=== PATIENT | male | born 1965 | race Caucasian/White ===

== ENCOUNTER 2020-12-17 15:52 | Emergency (ER) | payer OTHER ==
[2020-12-17 15:59] VITALS: TEMP 98.1
[2020-12-17] MEDS ORDERED: SODIUM CHLORIDE 0.9% 500 ML 500 ML IV ONE (16:33)
[2020-12-17] MEDS ORDERED: LORazepam 2 MG/ML INJ IV STA (16:33)
[2020-12-17] MEDS ORDERED: hydrALAZINE HCL 20 MG/ML 1 ML VIAL IVP STA (16:34)
--- NOTE | 2020-12-17 16:36 | ED ---
General Adult HPI - General Chief complaint: Recheck/Abnormal Lab/Rx Stated complaint: High BP, Sent by pcp Time Seen by Provider: 12/17/20 16:00 Source: patient, RN notes reviewed, old records reviewed Mode of arrival: wheelchair Limitations: no limitations - History of Present Illness Initial comments: This a 55-year-old male who presents emergency Department with a past medical history significant for alcoholism. Patient states he continues to drink daily his last drink today was 9:00 this morning. Patient states he went and got a physical today so he can establish with a new primary medical care doctor and at the physical examination his blood pressure was elevated in the center the emergency department to be evaluated. Patient denies any chest pain or palpitations. Patient denies any shortness breath or difficulty breathing. Patient denies any headache patient denies numbness weakness per patient denies any blurred vision. Patient states he feels at his baseline and has no complaints at this time. Patient states he is exploring opportunities to go to rehabilitation. Patient denies any recent fever chills or cough per patient states he did get the COVID vaccine. Patient denies any abdominal pain patient denies nausea vomiting diarrhea. - Related Data Previous Rx's Medication Instructions Recorded amLODIPine [Norvasc] 5 mg PO DAILY #10 tab 12/17/20 Allergies Allergy/AdvReac Type Severity Reaction Status Date / Time No Known Allergies Allergy Verified 12/17/20 15:56 Review of Systems ROS Statement: Those systems with pertinent positive or pertinent negative responses have been documented in the HPI. ROS Other: All systems not noted in ROS Statement are negative. Past Medical History Past Medical History: Diabetes Mellitus, Hyperlipidemia, Hypertension Additional Past Medical History / Comment(s): ETOH History of Any Multi-Drug Resistant Organisms: None Reported Past Surgical History: Joint Replacement Past Psychological History: Anxiety, Depression Smoking Status: Never smoker Past Alcohol Use History: Abuse, Daily Past Drug Use History: None Reported General Exam - General Exam Comments Initial Comments: GENERAL: Patient is well-developed and well-nourished. Patient is nontoxic and well- hydrated and is in no acute distress. ENT: Neck is soft and supple. No significant lymphadenopathy is noted. Oropharynx is clear. Moist mucous membranes. Neck has full range of motion without eliciting any pain. EYES: The sclera were anicteric and conjunctiva were pink and moist. Extraocular movements were intact and pupils were equal round and reactive to light. Eyel ids were unremarkable. PULMONARY: Unlabored respirations. Good breath sounds bilaterally. No audible rales rhonchi or wheezing was noted. CARDIOVASCULAR: There is a regular rate and rhythm without any murmurs gallops or rubs. ABDOMEN: Soft and nontender with normal bowel sounds. SKIN: Skin is clear with no lesions or rashes and otherwise unremarkable. NEUROLOGIC: Patient is alert and oriented x3. Cranial nerves II through XII are grossly intact. Motor and sensory are also intact. Normal speech, volume and content. Symmetrical smile. MUSCULOSKELETAL: Normal extremities with adequate strength and full range of motion. No lower extremity swelling or edema. No calf tenderness. LYMPHATICS: No significant lymphadenopathy is noted PSYCHIATRIC: Normal psychiatric evaluation. Limitations: no limitations Course Vital Signs 12/17/20 12/17/20 12/17/20 15:56 17:16 18:03 Temperature 98.1 F Pulse Rate 89 79 94 Respiratory 16 17 18 Rate Blood Pressure 189/110 160/97 160/88 O2 Sat by Pulse 96 94 L 97 Oximetry Medical Decision Making - Medical Decision Making Patient states he ate a bunch of rice crispy treats. Patient states he is a diabetic and doesn't always take his insulin as he is supposed to. I will back into the room the patient was feeling normal without any complaints at this time. EKG shows normal sinus rhythm at 73 bpm NJ interval 272 QRS is 74 Q-T intervals 410 QTC is 451 per patient's EKG shows no ST segment elevation or depression. - Lab Data Result diagrams: 12/17/20 16:41 12/17/20 16:41 Lab Results 12/17/20 12/17/20 12/17/20 Range/Units 16:41 16:41 16:41 WBC 6.4 (3.8-10.6) k/uL RBC 5.34 (4.30-5.90) m/uL Hgb 17.4 (13.0-17.5) gm/dL Hct 51.2 (39.0-53.0) % MCV 95.9 (80.0-100.0) fL MCH 32.5 (25.0-35.0) pg MCHC 33.9 (31.0-37.0) g/dL RDW 12.9 (11.5-15.5) % Plt Count 231 (150-450) k/uL MPV 7.7 Neutrophils % 67 % Lymphocytes % 20 % Monocytes % 6 % Eosinophils % 2 % Basophils % 1 % Neutrophils # 4.3 (1.3-7.7) k/uL Lymphocytes # 1.3 (1.0-4.8) k/uL Monocytes # 0.4 (0-1.0) k/uL Eosinophils # 0.2 (0-0.7) k/uL Basophils # 0.1 (0-0.2) k/uL PT 9.9 (9.0-12.0) sec INR 0.9 (<1.2) APTT 22.1 (22.0-30.0) sec Sodium 133 L (137-145) mmol/L Potassium 4.6 (3.5-5.1) mmol/L Chloride 96 L (98-107) mmol/L Carbon Dioxide 25 (22-30) mmol/L Anion Gap 12 mmol/L BUN 6 L (9-20) mg/dL Creatinine 0.77 (0.66-1.25) mg/dL Est GFR (CKD-EPI)AfAm >90 (>60 ml/min/1.73 sqM) Est GFR (CKD-EPI)NonAf >90 (>60 ml/min/1.73 sqM) Glucose 349 H (74-99) mg/dL POC Glucose (mg/dL) (75-99) mg/dL POC Glu Chief Digital Officer ID Calcium 10.0 (8.4-10.2) mg/dL Magnesium 2.2 (1.6-2.3) mg/dL Total Bilirubin 1.0 (0.2-1.3) mg/dL AST 85 H (17-59) U/L ALT 65 H (4-49) U/L Alkaline Phosphatase 185 H (38-126) U/L Troponin I (0.000-0.034) ng/mL Total Protein 7.9 (6.3-8.2) g/dL Albumin 4.7 (3.5-5.0) g/dL Serum Alcohol 12 mg/dL 12/17/20 12/17/20 Range/Units 16:41 18:09 WBC (3.8-10.6) k/uL RBC (4.30-5.90) m/uL Hgb (13.0-17.5) gm/dL Hct (39.0-53.0) % MCV (80.0-100.0) fL MCH (25.0-35.0) pg MCHC (31.0-37.0) g/dL RDW (11.5-15.5) % Plt Count (150-450) k/uL MPV Neutrophils % % Lymphocytes % % Monocytes % % Eosinophils % % Basophils % % Neutrophils # (1.3-7.7) k/uL Lymphocytes # (1.0-4.8) k/uL Monocytes # (0-1.0) k/uL Eosinophils # (0-0.7) k/uL Basophils # (0-0.2) k/uL PT (9.0-12.0) sec INR (<1.2) APTT (22.0-30.0) sec Sodium (137-145) mmol/L Potassium (3.5-5.1) mmol/L Chloride (98-107) mmol/L Carbon Dioxide (22-30) mmol/L Anion Gap mmol/L BUN (9-20) mg/dL Creatinine (0.66-1.25) mg/dL Est GFR (CKD-EPI)AfAm (>60 ml/min/1.73 sqM) Est GFR (CKD-EPI)NonAf (>60 ml/min/1.73 sqM) Glucose (74-99) mg/dL POC Glucose (mg/dL) 261 H (75-99) mg/dL POC Glu Chief Digital Officer ID Ariella Pope Calcium (8.4-10.2) mg/dL Magnesium (1.6-2.3) mg/dL Total Bilirubin (0.2-1.3) mg/dL AST (17-59) U/L ALT (4-49) U/L Alkaline Phosphatase (38-126) U/L Troponin I <0.012 (0.000-0.034) ng/mL Total Protein (6.3-8.2) g/dL Albumin (3.5-5.0) g/dL Serum Alcohol mg/dL Disposition Clinical Impression: Alcohol abuse, Hyperglycemia, Hypertension Disposition: HOME SELF-CARE Condition: Good Instructions (If sedation given, give patient instructions): Abuse of Alcohol (ED), Hypertension (ED) Additional Instructions: Patient returns emergency department as any chest pain difficulty breathing or shortness of breath or any new symptoms. Patient needs to enter a rehabilitation center for his alcohol abuse. Patient should take Norvasc as prescribed. Patient should follow-up with his primary medical care doctor soon as possible for his high blood pressure. Prescriptions: amLODIPine [Norvasc] 5 mg PO DAILY #10 tab Is patient prescribed a controlled substance at d/c from ED?: No Referrals: Rajan Bailey MD [Primary Care Provider] - 1-2 days Time of Disposition: 18:07
[2020-12-17 17:00] LABS: Basophils # (A) 0.1 k/uL (0-0.2); Basophils % (A) 1 %; Eosinophils # (A) 0.2 k/uL (0-0.7); Eosinophils % (A) 2 %; HCT 51.2 % (39.0-53.0); HGB 17.4 gm/dL (13.0-17.5); Lymphocytes # (A) 1.3 k/uL (1.0-4.8); Lymphocytes % (A) 20 %; MCH 32.5 pg (25.0-35.0); MCHC 33.9 g/dL (31.0-37.0); MCV 95.9 fL (80.0-100.0); Mean Platelet Volume 7.7; Monocytes # (A) 0.4 k/uL (0-1.0); Monocytes % (A) 6 %; Neutrophils # (A) 4.3 k/uL (1.3-7.7); Neutrophils % (A) 67 %; Platelet Count 231 k/uL (150-450); RBC 5.34 m/uL (4.30-5.90); RDW 12.9 % (11.5-15.5); WBC 6.4 k/uL (3.8-10.6)
[2020-12-17 17:11] LABS: ALT 65 U/L (4-49); AST 85 U/L (17-59); African American GFR (CKD) >90 (>60 ml/min/1.73 sqM); Albumin 4.7 g/dL (3.5-5.0); Alcohol 12 mg/dL; Alkaline Phosphatase 185 U/L (38-126); Anion Gap 12 mmol/L; Blood Urea Nitrogen 6 mg/dL (9-20); Carbon Dioxide 25 mmol/L (22-30); Chloride 96 mmol/L (98-107); Glucose 349 mg/dL (74-99); Magnesium 2.2 mg/dL (1.6-2.3); Non-African American GFR(CKD) >90 (>60 ml/min/1.73 sqM); Potassium 4.6 mmol/L (3.5-5.1); Sodium 133 mmol/L (137-145); Total Protein 7.9 g/dL (6.3-8.2)
[2020-12-17 17:13] LABS: INR 0.9 (<1.2); Partial Thromboplastin Time 22.1 sec (22.0-30.0); Prothrombin Time 9.9 sec (9.0-12.0)
--- NOTE | 2020-12-17 17:52 | XR ---
EXAMINATION TYPE: XR chest 2V DATE OF EXAM: 12/17/2020 COMPARISON: NONE HISTORY: Chest pain TECHNIQUE: Frontal and lateral views of the chest are obtained. FINDINGS: There is no focal air space opacity, pleural effusion, or pneumothorax seen. The cardiac silhouette size is within normal limits. No acute osseous abnormality. Chronic appearing compression deformities of the lower thoracic spine seen. IMPRESSION: No acute cardiopulmonary process.
[2020-12-17 18:04] VITALS: BP 160/88; PULSE 94; RESP 18
[2020-12-17 18:10] LABS: Glucose,Whole Blood 261 mg/dL (75-99)
== END 2020-12-17 18:36 | disposition home or self-care (01) ==
LOC: EC 15:52
DX: I10 Essential (primary) hypertension (principal); E11.65 Type 2 diabetes mellitus with hyperglycemia; F10.10 Alcohol abuse, uncomplicated
CPT/HCPCS: 36415; 93005; 80053; 83735; 84484; 85025; 85610; 85730; 71046; 99283; 96374; 96375; 96361; G0480; J2060; J0360; 80320

== ENCOUNTER → 2020-12-25 | Outpatient (CLI) | payer OTHER ==
[2020-12-25 15:16] VITALS: BMI 27.1
== END | disposition home or self-care (01) ==
LOC: DBWHC3 13:05
PROVIDERS: ATTEND Internal Medicine
DX: E11.65 Type 2 diabetes mellitus with hyperglycemia (principal); E11.40 Type 2 diabetes mellitus with diabetic neuropathy, unspecified; Z83.49 Family history of other endocrine, nutritional and metabolic diseases; Z82.49 Family history of ischemic heart disease and other diseases of the circulatory system; Z83.3 Family history of diabetes mellitus; Z80.9 Family history of malignant neoplasm, unspecified; Z82.3 Family history of stroke; Z78.9 Other specified health status; F19.90 Other psychoactive substance use, unspecified, uncomplicated

== ENCOUNTER → 2021-01-08 | Outpatient (CLI) | payer OTHER ==
[2021-01-09 01:50] LABS: VLDL Calculation 16.48 mg/dL (5.00-40.00)
[2021-01-09 02:12] LABS: African American GFR (CKD) 130.1 (60.0-200.0); Albumin 4.4 g/dL (3.8-4.9); Albumin/Globulin Ratio 1.64 (1.60-3.17); Anion Gap 16.7 mmol/L (4.00-12.00); BUN/Creat Ratio 17.48 Ratio (12.00-20.00); Blood Urea Nitrogen 10.7 mg/dL (9.0-27.0); Calcium 9.8 mg/dL (8.7-10.3); Carbon Dioxide 21.6 mmol/L (21.6-31.8); Chol/HDL Ratio 1.9 Ratio; Folate, Serum 10.1 ng/mL (4.40-31.00); Globulin 2.7 g/dL (1.6-3.3); HDL Cholesterol 99.9 mg/dL (40.00-60.00); LDL Cholesterol,Calculated 73.6 mg/dL (0.0-131.0); Non-African American GFR(CKD) 112.3 (60.0-200.0); Potassium 5.6 mmol/L (3.5-5.5); Total Bilirubin 0.6 mg/dL (0.30-1.20); Total Protein 7.1 g/dL (6.2-8.2); Triglycerides 82.4 mg/dL (0.00-149.00)
== END | disposition home or self-care (01) ==
LOC: LABWHC1 10:44
PROVIDERS: ATTEND Internal Medicine
DX: Z11.59 Encounter for screening for other viral diseases (principal); Z12.5 Encounter for screening for malignant neoplasm of prostate; E11.40 Type 2 diabetes mellitus with diabetic neuropathy, unspecified; F10.20 Alcohol dependence, uncomplicated; I10 Essential (primary) hypertension
CPT/HCPCS: 86803; 80061; 80053; 82607; 82746; 83036; 36415; G0103

== ENCOUNTER → 2021-01-17 | Outpatient (CLI) | payer OTHER ==
[2021-01-17 20:45] LABS: Albumin 4.7 g/dL (3.8-4.9); Albumin/Globulin Ratio 1.7 (1.60-3.17); Anion Gap 16.2 mmol/L (4.00-12.00); BUN/Creat Ratio 9.4 Ratio (12.00-20.00); Blood Urea Nitrogen 8.7 mg/dL (9.0-27.0); Calcium 9.8 mg/dL (8.7-10.3); Carbon Dioxide 22.4 mmol/L (21.6-31.8); Globulin 2.8 g/dL (1.6-3.3); Non-African American GFR(CKD) 93.2 (60.0-200.0); Potassium 5.3 mmol/L (3.5-5.5); Total Bilirubin 0.9 mg/dL (0.30-1.20); Total Protein 7.5 g/dL (6.2-8.2)
== END | disposition home or self-care (01) ==
LOC: LABWHC1 10:44
PROVIDERS: ATTEND Internal Medicine
DX: E11.40 Type 2 diabetes mellitus with diabetic neuropathy, unspecified (principal)
CPT/HCPCS: 36415; 80053

== ENCOUNTER → 2021-05-11 | Outpatient (CLI) | payer OTHER ==
--- NOTE | 2021-05-11 16:09 | US ---
EXAMINATION TYPE: US thyroid st tissue head/neck DATE OF EXAM: 05/11/2021 COMPARISON: NONE CLINICAL HISTORY: 56-year-old male E07.9 thyromegaly, R13.10 DYSPHAGIA. TECHNIQUE: Multiple sonographic images of the thyroid gland are obtained. FINDINGS: GLAND SIZE: Right Lobe: 5.6 x 2.2 x 2.1 cm Overall Parenchyma: homogenous Left Lobe: 4.6 x 1.8 x 1.7 cm Overall Parenchyma: homogeneous Isthmus Thickness: 0.4 cm NODULES RIGHT: # of nodules measured on right: 0 LEFT: # of nodules measured on left: 0 ISTHMUS: # of nodules measured in the isthmus: 0 Bilateral neck scanned, no evidence of lymphadenopathy. IMPRESSION: The right lobe of the thyroid gland is mildly enlarged. The left lobe is borderline in size. Overall homogeneous parenchyma. No discrete nodules.
== END | disposition home or self-care (01) ==
LOC: RADUSWWP 14:05
PROVIDERS: ATTEND Family Medicine
DX: E04.9 Nontoxic goiter, unspecified (principal)
CPT/HCPCS: 76536

== ENCOUNTER 2021-08-10 15:57 | Observation (INO) | payer OTHER ==
[2021-08-10] MEDS ORDERED: NITROGLYCERIN OINT 1 INCH/GM PACKET TOPICAL STA (16:23)
[2021-08-10] MEDS ORDERED: LORazepam 2 MG/ML INJ IV STA (16:24)
[2021-08-10 16:27] LABS: Glucose,Whole Blood 399 mg/dL (75-99)
--- NOTE | 2021-08-10 16:35 | ED ---
General Adult HPI - General Chief complaint: Dizziness Stated complaint: Chest pain Time Seen by Provider: 08/10/21 16:05 Source: patient, EMS, RN notes reviewed, old records reviewed Mode of arrival: EMS - History of Present Illness Initial comments: This is a 56-year-old male who presents emergency Department complaining of chest discomfort starting at about 11:00 today. Patient states she he also was lightheaded and a little bit dizzy. Patient also complains that her sugar was elevated at about 500. Patient states he's been taking his insulin regularly. Patient denies any fever chills or cough per patient denies any palpitations. Patient denies headache patient denies lightheadedness or dizziness. Patient denies abdominal pain patient denies nausea vomiting diarrhea. Patient denies any swelling to the legs or calf tenderness. Patient states he also has a hi story of anxiety feels a little anxious today. Patient states the chest discomfort was better after the bicycle repairer gave him some nitroglycerin. - Related Data Home Medications Medication Instructions Recorded Confirmed Atorvastatin Calcium [Lipitor] 10 mg PO DAILY 08/10/21 08/10/21 Folic Acid 1 mg PO DAILY 08/10/21 08/10/21 Insulin Glargine,Hum.rec.anlog 40 unit SQ HS 08/10/21 08/10/21 [Lantus Solostar Pen] Naltrexone HCl [Revia] 50 mg PO DAILY 08/10/21 08/10/21 Thiamine [Vitamin B-1] 100 mg PO DAILY 08/10/21 08/10/21 amLODIPine [Norvasc] 10 mg PO HS 08/10/21 08/10/21 lisinopriL [Zestril] 20 mg PO DAILY 08/10/21 08/10/21 Allergies Allergy/AdvReac Type Severity Reaction Status Date / Time No Known Allergies Allergy Verified 08/10/21 17:47 Review of Systems ROS Statement: Those systems with pertinent positive or pertinent negative responses have been documented in the HPI. ROS Other: All systems not noted in ROS Statement are negative. Past Medical History Past Medical History: Diabetes Mellitus, Hyperlipidemia, Hypertension Additional Past Medical History / Comment(s): ETOH History of Any Multi-Drug Resistant Organisms: None Reported Past Surgical History: Joint Replacement Past Psychological History: Anxiety, Depression Smoking Status: Never smoker Past Alcohol Use History: Abuse, Daily Past Drug Use History: Marijuana General Exam - General Exam Comments Initial Comments: GENERAL: Patient is well-developed and well-nourished. Patient is nontoxic and well- hydrated and is in mild distress. ENT: Neck is soft and supple. No significant lymphadenopathy is noted. Oropharynx is clear. Moist mucous membranes. Neck has full range of motion without eliciting any pain. EYES: The sclera were anicteric and conjunctiva were pink and moist. Extraocular movements were intact and pupils were equal round and reactive to light. Eyelids were unremarkable. PULMONARY: Unlabored respirations. Good breath sounds bilaterally. No audible rales rhonchi or wheezing was noted. CARDIOVASCULAR: There is a regular rate and rhythm without any murmurs gallops or rubs. ABDOMEN: Soft and nontender with normal bowel sounds. SKIN: Skin is clear with no lesions or rashes and otherwise unremarkable. NEUROLOGIC: Patient is alert and oriented x3. Cranial nerves II through XII are grossly intact. Motor and sensory are also intact. Normal speech, volume and content. Symmetrical smile. MUSCULOSKELETAL: Normal extremities with adequate strength and full range of motion. No lower extremity swelling or edema. No calf tenderness. LYMPHATICS: No significant lymphadenopathy is noted PSYCHIATRIC: Patient is mildly anxious Course Vital Signs 08/10/21 08/10/21 16:02 18:07 Temperature 97.8 F Pulse Rate 100 84 Respiratory 18 18 Rate Blood Pressure 157/93 115/76 O2 Sat by Pulse 97 96 Oximetry Medical Decision Making - Medical Decision Making EKG shows sinus rhythm at 96 bpm [place] interval 174 QRS is a 70 Q-T intervals 367 QTC is 421 per patient's EKG shows no ST segment elevation or depression. Patient was given a liter bolus of normal saline. Patient was also started on insulin drip for the DKA. I spoke with [facility] agreed to admit the patient admitted the patient. Dr. Nevarez he wanted the patient admitted he did not at this time wanted cardiology consult - Lab Data Result diagrams: 08/10/21 16:28 08/10/21 16:28 Lab Results 08/10/21 08/10/21 08/10/21 Range/Units 16:26 16:28 16:28 WBC 16.7 H (3.8-10.6) k/uL RBC 4.85 (4.30-5.90) m/uL Hgb 15.0 (13.0-17.5) gm/dL Hct 46.3 (39.0-53.0) % MCV 95.4 (80.0-100.0) fL MCH 30.9 (25.0-35.0) pg MCHC 32.4 (31.0-37.0) g/dL RDW 12.7 (11.5-15.5) % Plt Count 251 (150-450) k/uL MPV 8.4 Neutrophils % 92 % Lymphocytes % 4 % Monocytes % 4 % Eosinophils % 0 % Basophils % 0 % Neutrophils # 15.3 H (1.3-7.7) k/uL Lymphocytes # 0.6 L (1.0-4.8) k/uL Monocytes # 0.6 (0-1.0) k/uL Eosinophils # 0.0 (0-0.7) k/uL Basophils # 0.1 (0-0.2) k/uL PT 10.3 (9.0-12.0) sec INR 0.9 (<1.2) APTT 20.2 L (22.0-30.0) sec Sodium (137-145) mmol/L Potassium (3.5-5.1) mmol/L Chloride (98-107) mmol/L Carbon Dioxide (22-30) mmol/L Anion Gap mmol/L BUN (9-20) mg/dL Creatinine (0.66-1.25) mg/dL Est GFR (CKD-EPI)AfAm (>60 ml/min/1.73 sqM) Est GFR (CKD-EPI)NonAf (>60 ml/min/1.73 sqM) Glucose (74-99) mg/dL POC Glucose (mg/dL) 399 H (75-99) mg/dL POC Glu Box Toe Cementer ID September, Calcium (8.4-10.2) mg/dL Magnesium (1.6-2.3) mg/dL Total Bilirubin (0.2-1.3) mg/dL AST (17-59) U/L ALT (4-49) U/L Alkaline Phosphatase (38-126) U/L Troponin I (0.000-0.034) ng/mL Total Protein (6.3-8.2) g/dL Albumin (3.5-5.0) g/dL Acetone, Qual (Negative) 08/10/21 08/10/21 08/10/21 Range/Units 16:28 16:28 18:18 WBC (3.8-10.6) k/uL RBC (4.30-5.90) m/uL Hgb (13.0-17.5) gm/dL Hct (39.0-53.0) % MCV (80.0-100.0) fL MCH (25.0-35.0) pg MCHC (31.0-37.0) g/dL RDW (11.5-15.5) % Plt Count (150-450) k/uL MPV Neutrophils % % Lymphocytes % % Monocytes % % Eosinophils % % Basophils % % Neutrophils # (1.3-7.7) k/uL Lymphocytes # (1.0-4.8) k/uL Monocytes # (0-1.0) k/uL Eosinophils # (0-0.7) k/uL Basophils # (0-0.2) k/uL PT (9.0-12.0) sec INR (<1.2) APTT (22.0-30.0) sec Sodium 133 L (137-145) mmol/L Potassium 5.8 H (3.5-5.1) mmol/L Chloride 99 (98-107) mmol/L Carbon Dioxide 21 L (22-30) mmol/L Anion Gap 13 mmol/L BUN 12 (9-20) mg/dL Creatinine 0.77 (0.66-1.25) mg/dL Est GFR (CKD-EPI)AfAm >90 (>60 ml/min/1.73 sqM) Est GFR (CKD-EPI)NonAf >90 (>60 ml/min/1.73 sqM) Glucose 434 H (74-99) mg/dL POC Glucose (mg/dL) (75-99) mg/dL POC Glu Box Toe Cementer ID Calcium 9.0 (8.4-10.2) mg/dL Magnesium 1.9 (1.6-2.3) mg/dL Total Bilirubin 1.3 (0.2-1.3) mg/dL AST 34 (17-59) U/L ALT 24 (4-49) U/L Alkaline Phosphatase 98 (38-126) U/L Troponin I <0.012 (0.000-0.034) ng/mL Total Protein 7.0 (6.3-8.2) g/dL Albumin 4.3 (3.5-5.0) g/dL Acetone, Qual Positive (Negative) Critical Care Time Critical Care Time: Yes Total Critical Care Time: 35 Disposition Clinical Impression: Diabetic ketoacidosis, Chest pain, Vomiting Disposition: ADMITTED IP TO THIS [facility] Referrals: None,Stated [Primary Care Provider] - 1-2 days Time of Disposition: 18:56
[2021-08-10 16:49] LABS: Basophils # (A) 0.1 k/uL (0-0.2); Basophils % (A) 0 %; Eosinophils % (A) 0 %; HCT 46.3 % (39.0-53.0); Lymphocytes # (A) 0.6 k/uL (1.0-4.8); Lymphocytes % (A) 4 %; MCH 30.9 pg (25.0-35.0); MCHC 32.4 g/dL (31.0-37.0); MCV 95.4 fL (80.0-100.0); Mean Platelet Volume 8.4; Monocytes # (A) 0.6 k/uL (0-1.0); Monocytes % (A) 4 %; Neutrophils # (A) 15.3 k/uL (1.3-7.7); Neutrophils % (A) 92 %; Platelet Count 251 k/uL (150-450); RBC 4.85 m/uL (4.30-5.90); RDW 12.7 % (11.5-15.5); WBC 16.7 k/uL (3.8-10.6)
[2021-08-10 17:02] LABS: ALT 24 U/L (4-49); African American GFR (CKD) >90 (>60 ml/min/1.73 sqM); Albumin 4.3 g/dL (3.5-5.0); Anion Gap 13 mmol/L; Blood Urea Nitrogen 12 mg/dL (9-20); Carbon Dioxide 21 mmol/L (22-30); Chloride 99 mmol/L (98-107); Glucose 434 mg/dL (74-99); Non-African American GFR(CKD) >90 (>60 ml/min/1.73 sqM); Sodium 133 mmol/L (137-145); Total Bilirubin 1.3 mg/dL (0.2-1.3)
[2021-08-10 17:13] LABS: INR 0.9 (<1.2); Prothrombin Time 10.3 sec (9.0-12.0)
--- NOTE | 2021-08-10 17:26 | XR ---
EXAMINATION TYPE: XR chest 2V DATE OF EXAM: 08/10/2021 4:51 PM COMPARISON: Chest radiographs from 921 TECHNIQUE: XR chest 2V Frontal and lateral views of the chest. CLINICAL INDICATION:Male, 56 years old with history of Chest Pain; FINDINGS: Lungs/Pleura: There is flattening of the diaphragm with increased lucency of the lungs. No evidence o f pneumothorax, pleural effusion or focal consolidation. Pulmonary vascularity: Unremarkable. Heart/mediastinum: Cardiomediastinal silhouette is unremarkable. Musculoskeletal: No acute osseous pathology. IMPRESSION: 1. No acute cardiopulmonary disease process. 2. COPD changes.
[2021-08-10 17:29] LABS: Partial Thromboplastin Time 20.2 sec (22.0-30.0)
[2021-08-10 17:38] LABS: AST 34 U/L (17-59); Alkaline Phosphatase 98 U/L (38-126); Magnesium 1.9 mg/dL (1.6-2.3); Potassium 5.8 mmol/L (3.5-5.1)
[2021-08-10] MEDS ORDERED: SODIUM CHLORIDE 0.9% 1,000 ML IV ONE (18:54)
[2021-08-10] MEDS ORDERED: INSULIN REGULAR 100 UNIT in SODIUM CHLORIDE 0.9% 100 ML IV SCH (19:00)
[2021-08-10] MEDS ORDERED: LORazepam 2 MG/ML INJ IV PRN ×3 (19:07)
[2021-08-10] MEDS ORDERED: THIAMINE 100 MG/ML 2 ML VIAL IM STA (19:07)
[2021-08-10] MEDS: SODIUM CHLORIDE 0.9% 1,000 ML IV SCH (20:07)
[2021-08-10 20:08] LABS: Glucose,Whole Blood 293 mg/dL (75-99)
[2021-08-10 20:32] LABS: African American GFR (CKD) >90 (>60 ml/min/1.73 sqM); Anion Gap 10 mmol/L; Blood Urea Nitrogen 12 mg/dL (9-20); Carbon Dioxide 24 mmol/L (22-30); Chloride 101 mmol/L (98-107); Glucose 306 mg/dL (74-99); Non-African American GFR(CKD) >90 (>60 ml/min/1.73 sqM); Potassium 4.7 mmol/L (3.5-5.1); Sodium 135 mmol/L (137-145)
[2021-08-10 21:02] LABS: Glucose,Whole Blood 219 mg/dL (75-99)
[2021-08-10 22:16] LABS: Glucose,Whole Blood 111 mg/dL (75-99)
[2021-08-10 23:05] LABS: Glucose,Whole Blood 94 mg/dL (75-99)
[2021-08-10 23:48] LABS: Glucose,Whole Blood 91 mg/dL (75-99)
[2021-08-11 00:03] LABS: Glucose,Whole Blood 91 mg/dL (75-99)
[2021-08-11 00:29] LABS: African American GFR (CKD) >90 (>60 ml/min/1.73 sqM); Anion Gap 8 mmol/L; Blood Urea Nitrogen 12 mg/dL (9-20); Carbon Dioxide 25 mmol/L (22-30); Chloride 103 mmol/L (98-107); Glucose 87 mg/dL (74-99); Non-African American GFR(CKD) >90 (>60 ml/min/1.73 sqM); Potassium 4.2 mmol/L (3.5-5.1); Sodium 136 mmol/L (137-145)
[2021-08-11 00:32] LABS: Glucose,Whole Blood 92 mg/dL (75-99)
[2021-08-11] MEDS ORDERED: DEXTROSE 5%-0.45% NACL 1,000 ML with POTASSIUM CHLORIDE 20 MEQ IV SCH ×2 (00:45)
[2021-08-11] MEDS ORDERED: INSULIN NPH 300 UNIT/3 ML VIAL SQ ONE (00:52)
[2021-08-11 01:03] LABS: Glucose,Whole Blood 94 mg/dL (75-99)
[2021-08-11] MEDS: SODIUM CHLORIDE 0.9% 1,000 ML IV SCH (01:05)
[2021-08-11 01:38] LABS: Glucose,Whole Blood 120 mg/dL (75-99)
[2021-08-11 06:10] LABS: Glucose,Whole Blood 120 mg/dL (75-99)
[2021-08-11 07:29] LABS: Glucose,Whole Blood 68 mg/dL (75-99)
[2021-08-11] MEDS: INSULIN ASPART (NovoLOG) 100 UNIT/ML VIAL SQ SCH ×4 (07:29→12:51)
[2021-08-11] MEDS ORDERED: THIAMINE 100 MG TAB PO SCH (07:30)
[2021-08-11 07:58] LABS: Glucose,Whole Blood 88 mg/dL (75-99)
[2021-08-11] MEDS ORDERED: FOLIC ACID 1 MG TAB PO SCH (09:00)
[2021-08-11] MEDS ORDERED: ATORVASTATIN 10 MG TAB PO SCH (09:00)
[2021-08-11] MEDS ORDERED: lisinopriL 20 MG TAB PO SCH (09:00)
[2021-08-11 10:23] LABS: African American GFR (CKD) >90 (>60 ml/min/1.73 sqM); Anion Gap 5 mmol/L; Blood Urea Nitrogen 11 mg/dL (9-20); Carbon Dioxide 26 mmol/L (22-30); Chloride 103 mmol/L (98-107); Non-African American GFR(CKD) >90 (>60 ml/min/1.73 sqM); Phosphorus 3.5 mg/dL (2.5-4.5); Potassium 3.7 mmol/L (3.5-5.1); Sodium 134 mmol/L (137-145)
[2021-08-11 10:38] VITALS: TEMP 98.3
[2021-08-11 11:47] LABS: Glucose,Whole Blood 121 mg/dL (75-99)
[2021-08-11 11:48] VITALS: BP 146/85; PULSE 97; RESP 18
[2021-08-11 12:11] VITALS: BMI 24.7
--- NOTE | 2021-08-11 12:56 | P.DS ---
Providers Date of admission: 08/10/21 19:00 Attending physician: Jaun Nevarez Primary care physician: Stated None Hospital Course: Refer to my history of present illness for further details Plan - Discharge Summary Discharge Rx Participant: No New Discharge Prescriptions: New Insulin Aspart [Insulin Aspart Flexpen] 6 unit SQ AC-TID #5 pen Insulin Glargine,Hum.rec.anlog [Lantus Solostar Pen] 30 unit SQ DAILY #5 pen Continue Naltrexone HCl [Revia] 50 mg PO DAILY Thiamine [Vitamin B-1] 100 mg PO DAILY lisinopriL [Zestril] 20 mg PO DAILY Folic Acid 1 mg PO DAILY Atorvastatin Calcium [Lipitor] 10 mg PO DAILY Changed amLODIPine [Norvasc] 5 mg PO HS #0 Discontinued Insulin Glargine,Hum.rec.anlog [Lantus Solostar Pen] 40 unit SQ HS Discharge Medication List Atorvastatin Calcium [Lipitor] 10 mg PO DAILY 08/10/21 [History] Folic Acid 1 mg PO DAILY 08/10/21 [History] Naltrexone HCl [Revia] 50 mg PO DAILY 08/10/21 [History] Thiamine [Vitamin B-1] 100 mg PO DAILY 08/10/21 [History] lisinopriL [Zestril] 20 mg PO DAILY 08/10/21 [History] Insulin Aspart [Insulin Aspart Flexpen] 6 unit SQ AC-TID #5 pen 08/11/21 [Rx] Insulin Glargine,Hum.rec.anlog [Lantus Solostar Pen] 30 unit SQ DAILY #5 pen 08/11/21 [Rx] amLODIPine [Norvasc] 5 mg PO HS #0 08/11/21 [Rx] Follow up Appointment(s)/Referral(s): Ha Barlow MD [STAFF PHYSICIAN] - 1 Week Kal Wolf MD [STAFF PHYSICIAN] - 1 Week Abdirashid Arguelles MD [REFERRING] - 1 Week Patient Instructions/Handouts: Diabetic Ketoacidosis (DC), Basic Carbohydrate Counting (DC) Activity/Diet/Wound Care/Special Instructions: Will need a script for Nalterxone please Discharge Disposition: HOME SELF-CARE
--- NOTE | 2021-08-11 12:56 | P.HPIM ---
History of Present Illness 56-year-old pleasant male came in with the complaints of further dizziness lightheadedness found to have low blood pressure. Patient is also found to have highly elevated blood pressures and mild anion gap metabolic acidosis because of which patient was believed to have a ketoacidosis although my suspicion is low for that and patient was subsequently admitted for that admission was given IV insulin which was transitioned to subcutaneous insulin last night and patient usually takes 40 units of Lantus at night. Patient blood sugars as per the patient and highly fluctuating in the mornings are low and by evening they're high although patient does drink about 5 beers a day. Patient usually drinks his be starting in the afternoon. doesn't take any pre-meal insulin. Patient is in between doctors doesn't have a primary care physician at this time patient denied any fever chills patient had leukocytosis yesterday. Patient lightheadedness resolve the patient does take amlodipine and lisinopril at home. Apparently patient was comparing of chest discomfort. Patient he denied any such complaints to me, patient's EKG is within normal limits and troponins are negative. Patient has a significant anxiety and patient is quite a bit depressed denied any suicidal ideations. REVIEW OF SYSTEMS: CONSTITUTIONAL: No fever, no malaise, no fatigue. HEENT: No recent visual problems or hearing problems. Denied any sore throat. CARDIOVASCULAR: No chest pain, orthopnea, PND, no palpitations, no syncope. PULMONARY: No shortness of breath, no cough, no hemoptysis. GASTROINTESTINAL: No diarrhea, no nausea, no vomiting, no abdominal pain. NEUROLOGICAL: No headaches, no weakness, no numbness. HEMATOLOGICAL: Denies any bleeding or petechiae. GENITOURINARY: Denies any burning micturition, frequency, or urgency. MUSCULOSKELETAL/RHEUMATOLOGICAL: Denies any joint pain, swelling, or any muscle pain. ENDOCRINE: Denies any polyuria or polydipsia. The rest of the 14-point review of systems is negative. PHYSICAL EXAMINATION: GENERAL: The patient is alert and oriented x3, not in any acute distress. Well developed, well nourished. HEENT: Pupils are round and equally reacting to light. EOMI. No scleral icterus. No conjunctival pallor. Normocephalic, atraumatic. No pharyngeal erythema. No thyromegaly. CARDIOVASCULAR: S1 and S2 present. No murmurs, rubs, or gallops. PULMONARY: Chest is clear to auscultation, no wheezing or crackles. ABDOMEN: Soft, nontender, nondistended, normoactive bowel sounds. No palpable organomegaly. MUSCULOSKELETAL: No joint swelling or deformity. EXTREMITIES: No cyanosis, clubbing, or pedal edema. NEUROLOGICAL: Gross neurological examination did not reveal any focal deficits. SKIN: No rashes. Assessment and plan - lightheadedness: Most probably secondary to low blood pressure there may be a competent of dehydration as well. Patient was hydrated overnight, we'll cut down the dose of amlodipine to 5 mg continue with the lisinopril. Elevated blood sugars low possibility of diabetic ketoacidosis. Patient was started on pre-meal insulin for better control of blood sugars and patient can take higher doses of short-acting insulin in the afternoon and evening did his elevated blood sugars in the afternoon and evening is secondary to beer. Patient has cut down significantly. His long-acting insulin will be cut down to 30 units I do not have any hemoglobin A1c available at this time -Hypertension: Management as mentioned for -Hyperlipidemia -Leukocytosis reactive -Depression patient follows with [facility] patient is not suicidal at this time Patient will be discharged today in stable medical condition to home with follow-up with PCP, endocrinology and cardiology as an outpatient Past Medical History Past Medical History: Diabetes Mellitus, Hyperlipidemia, Hypertension Additional Past Medical History / Comment(s): ETOH History of Any Multi-Drug Resistant Organisms: None Reported Past Surgical History: Adenoidectomy, Tonsillectomy Additional Past Surgical History / Comment(s): L ankle surgery Past Anesthesia/Blood Transfusion Reactions: No Reported Reaction Past Psychological History: Anxiety, Depression Smoking Status: Never smoker Past Alcohol Use History: Abuse, Daily Past Drug Use History: Marijuana Medications and Allergies Home Medications Medication Instructions Recorded Confirmed Type Atorvastatin Calcium [Lipitor] 10 mg PO DAILY 08/10/21 08/10/21 History Folic Acid 1 mg PO DAILY 08/10/21 08/10/21 History Naltrexone HCl [Revia] 50 mg PO DAILY 08/10/21 08/10/21 History Thiamine [Vitamin B-1] 100 mg PO DAILY 08/10/21 08/10/21 History lisinopriL [Zestril] 20 mg PO DAILY 08/10/21 08/10/21 History Insulin Aspart [Insulin Aspart 6 unit SQ AC-TID #5 pen 08/11/21 Rx Flexpen] Insulin Glargine,Hum.rec.anlog 30 unit SQ DAILY #5 pen 08/11/21 Rx [Lantus Solostar Pen] amLODIPine [Norvasc] 5 mg PO HS #0 08/11/21 08/10/21 Rx Allergies Allergy/AdvReac Type Severity Reaction Status Date / Time No Known Allergies Allergy Verified 08/10/21 17:47 Physical Exam Vitals: Vital Signs Temp Pulse Pulse Resp BP BP Pulse Ox 08/11/21 11:47 98.3 F 97 18 146/85 99 08/11/21 10:36 98.3 F 66 16 121/68 99 08/11/21 04:00 97.9 F 66 16 100/54 98 08/11/21 00:00 98.0 F 77 16 142/78 97 08/10/21 20:09 91 16 144/92 96 08/10/21 20:00 98.1 F 98 16 138/77 96 08/10/21 18:07 84 18 115/76 96 08/10/21 16:02 97.8 F 100 18 157/93 97 Intake and Output 08/10/21 08/11/21 08/11/21 22:59 06:59 14:59 Intake Total 31.670 4 260 Balance 31.670 4 260 Intake: IV 10 10 Invasive Line 1 10 10 Intake, IV Titration 21.670 4 Amount Insulin Regular 100 unit 21.670 4 In Sodium Chloride 0.9% 100 ml @ 0.1 UNITS/KG/HR 10.079 mls/hr IV .Q10H2M [facility] Rx#:[id number] Oral 250 Other: Voiding Method Toilet Toilet Toilet # Voids 1 1 3 # Bowel Movements 1 Weight 99.79 kg 99.79 kg Results CBC & Chem 7: 08/10/21 16:28 08/11/21 09:49 Labs: Abnormal Lab Results - Last 24 Hours (Table) 08/10/21 08/10/21 08/10/21 Range/Units 16:26 16:28 16:28 WBC 16.7 H (3.8-10.6) k/uL Neutrophils # 15.3 H (1.3-7.7) k/uL Lymphocytes # 0.6 L (1.0-4.8) k/uL APTT 20.2 L (22.0-30.0) sec Sodium (137-145) mmol/L Potassium (3.5-5.1) mmol/L Carbon Dioxide (22-30) mmol/L Creatinine (0.66-1.25) mg/dL Glucose (74-99) mg/dL POC Glucose (mg/dL) 399 H (75-99) mg/dL 08/10/21 08/10/21 08/10/21 Range/Units 16:28 20:00 20:05 WBC (3.8-10.6) k/uL Neutrophils # (1.3-7.7) k/uL Lymphocytes # (1.0-4.8) k/uL APTT (22.0-30.0) sec Sodium 133 L 135 L (137-145) mmol/L Potassium 5.8 H (3.5-5.1) mmol/L Carbon Dioxide 21 L (22-30) mmol/L Creatinine (0.66-1.25) mg/dL Glucose 434 H 306 H (74-99) mg/dL POC Glucose (mg/dL) 293 H (75-99) mg/dL 08/10/21 08/10/21 08/10/21 Range/Units 21:00 22:15 23:52 WBC (3.8-10.6) k/uL Neutrophils # (1.3-7.7) k/uL Lymphocytes # (1.0-4.8) k/uL APTT (22.0-30.0) sec Sodium 136 L (137-145) mmol/L Potassium (3.5-5.1) mmol/L Carbon Dioxide (22-30) mmol/L Creatinine 0.65 L (0.66-1.25) mg/dL Glucose (74-99) mg/dL POC Glucose (mg/dL) 219 H 111 H (75-99) mg/dL 08/11/21 08/11/21 08/11/21 Range/Units 01:35 06:08 07:28 WBC (3.8-10.6) k/uL Neutrophils # (1.3-7.7) k/uL Lymphocytes # (1.0-4.8) k/uL APTT (22.0-30.0) sec Sodium (137-145) mmol/L Potassium (3.5-5.1) mmol/L Carbon Dioxide (22-30) mmol/L Creatinine (0.66-1.25) mg/dL Glucose (74-99) mg/dL POC Glucose (mg/dL) 120 H 120 H 68 L (75-99) mg/dL 08/11/21 08/11/21 Range/Units 09:49 11:45 WBC (3.8-10.6) k/uL Neutrophils # (1.3-7.7) k/uL Lymphocytes # (1.0-4.8) k/uL APTT (22.0-30.0) sec Sodium 134 L (137-145) mmol/L Potassium (3.5-5.1) mmol/L Carbon Dioxide (22-30) mmol/L Creatinine (0.66-1.25) mg/dL Glucose (74-99) mg/dL POC Glucose (mg/dL) 121 H (75-99) mg/dL Thrombosis Risk Factor Assmnt - Choose All That Apply Any of the Below Risk Factors Present?: Yes Each Factor Represents 1 point: Age 41-60 years Other Risk Factors: No Other congenital or acquired thrombophilia - If yes, enter type in comment: No Thrombosis Risk Factor Assessment Total Risk Factor Score: 1 Thrombosis Risk Factor Assessment Level: Low Risk
[2021-08-11] MEDS ORDERED: amLODIPine 10 MG TAB PO SCH (21:00)
[2021-08-11] MEDS ORDERED: INSULIN DETEMIR (LEVEMIR) 100 UNIT/ML SYR SQ SCH (21:00)
[2021-08-12] MEDS ORDERED: lisinopriL 10 MG TAB PO SCH (09:00)
== END 2021-08-11 13:05 | disposition home or self-care (01) ==
LOC: EC 15:57 → INTOOBSV 19:00 → 3SCARD 19:00 → UNDODISIN 08-11 13:05
PROVIDERS: ADMIT Internal Medicine; ATTEND Internal Medicine
DX: E11.10 Type 2 diabetes mellitus with ketoacidosis without coma (principal); D72.829 Elevated white blood cell count, unspecified; I10 Essential (primary) hypertension; E86.0 Dehydration; R03.1 Nonspecific low blood-pressure reading; E78.5 Hyperlipidemia, unspecified; F32.A Depression, unspecified; F41.9 Anxiety disorder, unspecified; Z79.4 Long term (current) use of insulin; Z79.899 Other long term (current) drug therapy
CPT/HCPCS: 99291; 96376; 96365; 96366; 96372; 96375; 36415; 93005; 80051 ×2; 80053; 82565 ×2; 82009; 83735; 84100 ×2; 82947; 84520 ×2; 84484; 85025; 85610; 85730; 71046; G0378 ×2; J2060; J3411; J3480; 96361

== ENCOUNTER → 2021-10-09 | Outpatient (CLI) | payer OTHER ==
--- NOTE | 2021-10-09 13:52 | XR ---
EXAMINATION TYPE: XR finger or thumb bilateral DATE OF EXAM: 10/09/2021 COMPARISON: None HISTORY: Bilateral thumb pain TECHNIQUE: Bilateral thumbs are examined in 3 projections each. FINDINGS: Spaces and mild narrowing at the right metacarpal phalangeal joint space. No acute fracture s or dislocations are evident. Soft tissues are normal. Follow-up exams can be performed 7-10 days. IMPRESSION: 1. Mild degenerative joint change first metacarpal phalangeal joint space right hand.
--- NOTE | 2021-10-09 16:20 | XR ---
EXAMINATION TYPE: XR lumbosacral spine min 4V DATE OF EXAM: 10/09/2021 COMPARISON: None HISTORY: Low back pain TECHNIQUE: 5 view lumbar spine FINDINGS: There are 5 lumbar-type vertebral bodies. The pedicles are intact. Mild diffuse facet pena es or to the lumbar spine, greatest at L4-5 and L5-S1. Some posterior disc space narrowing is present L3-4 through L5-S1. Remaining disc heights are preserved. Vertebral body heights are preserved. Alig nment is normal. IMPRESSION: 1. Mild posterior disc space narrowing lower lumbar spine. MRI can be performed as clinically indica talia. 2. No acute osseous abnormality radiographically apparent.
--- NOTE | 2021-10-09 16:22 | XR ---
EXAMINATION TYPE: XR thoracic spine complete DATE OF EXAM: 10/09/2021 COMPARISON: CT abdomen and pelvis 08/27/2021 HISTORY: Pain TECHNIQUE: 3 view thoracic spine FINDINGS: In the region of T9 and there appears to be a compression deformity. This wedge may be appr oximately 30% anterior vertebral body height loss. Milder compression at the region of T8 may be pres ent as well. No posterior wall displacement is evident. IMPRESSION: 1. Old compression deformity T9 and T8.
== END | disposition home or self-care (01) ==
LOC: RADXRMAIN 13:14
PROVIDERS: ATTEND Nurse Practitioner
DX: M79.641 Pain in right hand (principal); M79.642 Pain in left hand; M54.50 Low back pain, unspecified
CPT/HCPCS: 72072; 72110

== ENCOUNTER 2021-11-23 08:13 | Day surgery (SDC) | payer OTHER ==
[2021-11-19 11:36] VITALS: BMI 23.8
--- NOTE | 2021-11-23 07:36 | P.GSHP ---
History of Present Illness H&P Date: 11/23/21 CHIEF COMPLAINT: Colon screen HISTORY OF PRESENT ILLNESS: The patient is a 56-year-old male who presents for colon screen. Lower endoscopy was offered for further evaluation and management. PAST MEDICAL HISTORY: Please see list. PAST SURGICAL HISTORY: Please see list. MEDICATIONS: Please see list. ALLERGIES: Please see list. SOCIAL HISTORY: No illicit drug use FAMILY HISTORY: No reports of Crohn disease or ulcerative colitis. REVIEW OF ORGAN SYSTEMS: CONSTITUTIONAL: No reports of fevers or chills. PHYSICAL EXAM: VITAL SIGNS: Stable GENERAL: Well-developed pleasant in no acute distress. HEENT: No scleral icterus. Extraocular movements grossly intact. Moist buccal mucosa. NECK: Supple without lymphadenopathy. CHEST: Unlabored respirations. Equal bilateral excursions. CARDIOVASCULAR: Regular rate and rhythm. Distal 2+ pulses. ABDOMEN: Soft, nontender, nondistended. MUSCULOSKELETAL: No clubbing, cyanosis, or edema. ASSESSMENT: 1. Colon screen. PLAN: 1. Recommend proceeding with a lower endoscopy Past Medical History Past Medical History: Diabetes Mellitus, Hyperlipidemia, Hypertension Additional Past Medical History / Comment(s): Alchoholic. Hx Acid reflux, resolved 10 yrs ago. History of Any Multi-Drug Resistant Organisms: None Reported Past Surgical History: Adenoidectomy, Cholecystectomy, Orthopedic Surgery, Tonsillectomy Additional Past Surgical History / Comment(s): Left ankle surgery. Past Anesthesia/Blood Transfusion Reactions: No Reported Reaction Past Psychological History: Anxiety, Depression Smoking Status: Never smoker Past Alcohol Use History: Abuse, Daily Additional Past Alcohol Use History / Comment(s): Use to drink 24 beers a day, over the last year has cut down to less than 6 per day. Past Drug Use History: Marijuana Additional Drug Use History / Comment(s): Occasional Marijuana use. Aware no alcohol or Marijuana use 24 hrs prior to procedure. - Past Family History Mother Family Medical History: Cancer Father Family Medical History: Cancer, CVA/TIA Additional Family Medical History / Comment(s): CVA X2, . Medications and Allergies Home Medications Medication Instructions Recorded Confirmed Type Atorvastatin Calcium [Lipitor] 10 mg PO HS 08/10/21 11/19/21 History Naltrexone HCl [Revia] 50 mg PO HS 08/10/21 11/19/21 History lisinopriL [Zestril] 20 mg PO HS 08/10/21 11/19/21 History amLODIPine [Norvasc] 5 mg PO HS 30 Days #30 tab 08/31/21 11/19/21 Rx Insulin Aspart [Insulin Aspart 1 - 40 unit SQ TID PRN 11/19/21 11/19/21 History Flexpen] Insulin Glargine,Hum.rec.anlog 13 unit SQ BID 11/19/21 11/19/21 History [Lantus Solostar Pen] Naproxen (Unknown Dose) 1 tab PO BID 11/19/21 11/19/21 History Allergies Allergy/AdvReac Type Severity Reaction Status Date / Time No Known Allergies Allergy Verified 11/19/21 11:10
[~2021-11-23 08:13] MED LIST: LACTATED RINGERS 1,000 ML IV SCH
[2021-11-23 08:37] VITALS: TEMP 97.3
[2021-11-23 08:51] LABS: Glucose,Whole Blood 165 mg/dL (70-110)
[2021-11-23] MEDS ORDERED: PROPOFOL 10 MG/ML 20 ML VIAL IV ONE (10:14)
[2021-11-23 10:38] VITALS: RESP 16
[2021-11-23 10:55] VITALS: BP 157/94; PULSE 74
--- NOTE | 2021-11-23 11:12 | P.PCN ---
Date of Procedure: 11/23/21 Description of Procedure: PREOPERATIVE DIAGNOSIS: Colonoscopy screening POSTOPERATIVE DIAGNOSIS: Tubular adenoma transverse colon Sigmoid diverticulosis Internal hemorrhoids, grade 2 OPERATION: Colonoscopy to the ileocecal valve and appendiceal orifice, cecum Colonoscopy with hot snare polypectomy SURGEON: Cassie Duke MD. ANESTHESIA: MAC. INDICATIONS: The patient is an 56-year-old male who presents for colonoscopy screening. Benefits and risks were described and informed consent was obtained. DESCRIPTION OF PROCEDURE: The patient had undergone Sutab prep. The patient had been brought into the operating room and laid in the left lateral decubitus position. After adequate intravenous sedation, the rectum was examined with 2% lidocaine jelly. The prostate was unremarkable. External hemorrhoids were encountered. The rectal tone was within normal limits. No lesions were palpated in the rectal vault. An Olympus colonoscope was advanced until the cecum, ileocecal valve and appendiceal orifice were clearly viewed. The prep was fair. Sigmoid diverticulosis was encountered. Colonic polyps were found and removed. No evidence of focal colitis was found. Retroflexion of the scope demonstrated grade 2 internal hemorrhoids without active bleeding or inflammation. The colon was desufflated. The patient had tolerated the procedure well. Withdrawal time was over 6 minutes. FINDINGS: Aronchick preparation quality scale 1 (1-5) Internal hemorrhoids, grade 3 with recent inflammation and bleeding External hemorrhoids, grade 4. No arteriovenous malformations. Sigmoid diverticulosis Removal of 2 polyps: - Snare polypectomy 20 cm from the anal verge, 5 mm tubulovillous adenoma polyp. - Snare polypectomy 39 cm from the anal verge, 8 mm flat villous adenoma polyp. - Snare polypectomy 50 cm from the anal verge, 12 mm flat villous adenoma polyp. No focal colitis. RECOMMENDATIONS: Given severity of tubular adenomas, recommend repeat colonoscopy 1 year. Plan - Discharge Summary Discharge Rx Participant: No New Discharge Prescriptions: Continue Naltrexone HCl [Revia] 50 mg PO HS Naproxen (Unknown Dose) 1 tab PO BID lisinopriL [Zestril] 20 mg PO HS Atorvastatin Calcium [Lipitor] 10 mg PO HS amLODIPine [Norvasc] 5 mg PO HS 30 Days #30 tab Insulin Glargine,Hum.rec.anlog [Lantus Solostar Pen] 13 unit SQ BID Insulin Aspart [Insulin Aspart Flexpen] 1 - 40 unit SQ TID PRN PRN Reason: Blood Sugar - High Discharge Medication List Atorvastatin Calcium [Lipitor] 10 mg PO HS 08/10/21 [History] Naltrexone HCl [Revia] 50 mg PO HS 08/10/21 [History] lisinopriL [Zestril] 20 mg PO HS 08/10/21 [History] amLODIPine [Norvasc] 5 mg PO HS 30 Days #30 tab 08/31/21 [Rx] Insulin Aspart [Insulin Aspart Flexpen] 1 - 40 unit SQ TID PRN 11/19/21 [History] Insulin Glargine,Hum.rec.anlog [Lantus Solostar Pen] 13 unit SQ BID 11/19/21 [History] Naproxen (Unknown Dose) 1 tab PO BID 11/19/21 [History] Follow up Appointment(s)/Referral(s): Cassie Duke MD [STAFF PHYSICIAN] - As Needed Patient Instructions/Handouts: *Surgery [facility] - (Anesthesia) Endoscopy Discharge Instructions, Diverticulosis (DC), Colorectal Polyps (GEN), Diverticulosis Diet (GEN) Activity/Diet/Wound Care/Special Instructions: Repeat colonoscopy 3 years, 2024 Discharge Disposition: HOME SELF-CARE
== END 2021-11-23 11:04 | disposition home or self-care (01) ==
LOC: ORWHC2ENDO 08:13
PROVIDERS: ATTEND Surgery Plastic and Reconstructive Surgery
DX: Z12.11 Encounter for screening for malignant neoplasm of colon (principal); D12.3 Benign neoplasm of transverse colon; K57.30 Diverticulosis of large intestine without perforation or abscess without bleeding; K64.1 Second degree hemorrhoids; I10 Essential (primary) hypertension; E11.69 Type 2 diabetes mellitus with other specified complication; E78.5 Hyperlipidemia, unspecified; K21.9 Gastro-esophageal reflux disease without esophagitis; F41.9 Anxiety disorder, unspecified; F32.A Depression, unspecified; Z79.899 Other long term (current) drug therapy; Z79.4 Long term (current) use of insulin; Z79.1 Long term (current) use of non-steroidal anti-inflammatories (NSAID); Z80.9 Family history of malignant neoplasm, unspecified; Z82.3 Family history of stroke; Z90.49 Acquired absence of other specified parts of digestive tract
CPT/HCPCS: 88305; 45385; J2704

== ENCOUNTER → 2022-02-02 | Outpatient (CLI) | payer OTHER ==
--- NOTE | 2022-02-02 15:14 | XR ---
EXAMINATION TYPE: XR cervical spine comp DATE OF EXAM: 02/02/2022 3:05 PM INDICATION: Patient age:Male; 57 years old; Reason for study: M54.2 Neck pain; [facility]. COMPARISON: None TECHNIQUE: The cervical spine was imaged in 4 projections. Frontal, lateral, odontoid and bilateral o blique. FINDINGS: The osseous structures show normal alignment without evidence of an acute fracture. There are osteoph ytes noted throughout the cervical spine on the anterior and lateral aspects of the vertebral bodies. Mild multilevel degenerative disc disease with disc space narrowing and endplate sclerosis. Multilev el facet arthropathy. Pedicles are intact. Soft tissues are within normal limits. The odontoid appe ars intact. IMPRESSION: 1. No fracture or dislocation. 2. Mild degenerative disc disease changes of the cervical spine.
== END | disposition home or self-care (01) ==
LOC: RADXRMAIN 14:27
PROVIDERS: ATTEND Psychiatry & Neurology Neurology
DX: M54.2 Cervicalgia (principal)
CPT/HCPCS: 72050

== ENCOUNTER 2022-11-21 11:05 | Emergency (ER) | payer OTHER ==
[2022-11-21 11:13] VITALS: RESP 18; TEMP 98.4
[2022-11-21] MEDS ORDERED: PANTOPRAZOLE 40 MG/10 ML VIAL IVP STA (11:24)
[2022-11-21 11:41] LABS: Basophils % (A) 0 %; Eosinophils % (A) 0 %; HCT 38.4 % (39.0-53.0); HGB 13.4 gm/dL (13.0-17.5); Lymphocytes # (A) 0.8 k/uL (1.0-4.8); Lymphocytes % (A) 8 %; MCH 32.6 pg (25.0-35.0); MCHC 34.8 g/dL (31.0-37.0); MCV 93.7 fL (80.0-100.0); Mean Platelet Volume 8.7; Monocytes # (A) 0.6 k/uL (0-1.0); Monocytes % (A) 6 %; Neutrophils # (A) 8.6 k/uL (1.3-7.7); Neutrophils % (A) 85 %; Platelet Count 228 k/uL (150-450); RDW 12.6 % (11.5-15.5); WBC 10.2 k/uL (3.8-10.6)
[2022-11-21] MEDS ORDERED: ONDANSETRON 4 MG/2 ML VIAL IVP STA (11:42)
[2022-11-21] MEDS ORDERED: SODIUM CHLORIDE 0.9% 1,000 ML IV SCH (11:45)
--- NOTE | 2022-11-21 11:45 | ED ---
General Adult HPI - General Chief complaint: GI Bleed Stated complaint: vomiting Time Seen by Provider: 11/21/22 11:24 Source: patient, EMS, RN notes reviewed, old records reviewed Mode of arrival: EMS Limitations: no limitations - History of Present Illness Initial comments: 57-year-old male with several episodes of bloody emesis. Patient's symptoms s tarted several hours prior to arrival with an initial vomiting which contained bright red blood. This progressed to coffee-ground emesis. He has previous history of alcohol abuse but has not had a drink in one year. No history of esophageal varices. He does take naproxen twice daily. He denies previous history of GI bleed. - Related Data Home Medications Medication Instructions Recorded Confirmed Atorvastatin Calcium [Lipitor] 10 mg PO HS 08/10/21 11/23/21 Naltrexone HCl [Revia] 50 mg PO HS 08/10/21 11/23/21 lisinopriL [Zestril] 20 mg PO HS 08/10/21 11/23/21 Insulin Aspart [Insulin Aspart 1 - 40 unit SQ TID PRN 11/19/21 11/23/21 Flexpen] Insulin Glargine,Hum.rec.anlog 13 unit SQ BID 11/19/21 11/23/21 [Lantus Solostar Pen] Naproxen (Unknown Dose) 1 tab PO BID 11/19/21 11/23/21 Previous Rx's Medication Instructions Recorded amLODIPine [Norvasc] 5 mg PO HS 30 Days #30 tab 08/31/21 Allergies Allergy/AdvReac Type Severity Reaction Status Date / Time No Known Allergies Allergy Verified 11/23/21 08:33 Review of Systems ROS Statement: Those systems with pertinent positive or pertinent negative responses have been documented in the HPI. ROS Other: All systems not noted in ROS Statement are negative. Past Medical History Past Medical History: Diabetes Mellitus, Hyperlipidemia, Hypertension Additional Past Medical History / Comment(s): Alchoholic. Hx Acid reflux, resolved 10 yrs ago. History of Any Multi-Drug Resistant Organisms: None Reported Past Surgical History: Adenoidectomy, Cholecystectomy, Orthopedic Surgery, Tonsillectomy Additional Past Surgical History / Comment(s): Left ankle surgery. Past Anesthesia/Blood Transfusion Reactions: No Reported Reaction Past Psychological History: Anxiety, Depression Smoking Status: Never smoker Past Alcohol Use History: Abuse, Daily Past Drug Use History: Marijuana - Past Family History Mother Family Medical History: Cancer Father Family Medical History: Cancer, CVA/TIA Additional Family Medical History / Comment(s): CVA X2, . General Exam Limitations: no limitations General appearance: alert, anxious Head exam: Present: atraumatic, normocephalic Eye exam: Present: normal appearance, PERRL ENT exam: Present: normal exam Neck exam: Present: normal inspection Respiratory exam: Present: normal lung sounds bilaterally. Absent: respiratory distress, wheezes Cardiovascular Exam: Present: normal rhythm, tachycardia GI/Abdominal exam: Present: soft. Absent: distended, tenderness, guarding, rebound Extremities exam: Present: normal inspection, normal capillary refill Neurological exam: Present: alert, oriented X3, CN II-XII intact. Absent: motor sensory deficit Psychiatric exam: Present: anxious Skin exam: Present: warm, dry, intact, normal color. Absent: pallor Course Vital Signs 11/21/22 11:07 Temperature 98.4 F Pulse Rate 111 H Respiratory 18 Rate Blood Pressure 130/80 O2 Sat by Pulse 97 Oximetry Medical Decision Making - Medical Decision Making Was pt. sent in by a medical professional or institution (, PA, GAS DISTRIBUTION PLANT OPERATOR, urgent care, hospital, or penitentiary...) When possible be specific @ -No Did you speak to anyone other than the patient for history (EMS, parent, family, police, friend...)? What history was obtained from this source @ -No Did you review nursing and triage notes (agree or disagree)? Why? @ -I reviewed and agree with nursing and triage notes Were old charts reviewed (outside hosp., previous admission, EMS record, old EKG, old radiological studies, urgent care reports/EKG's, penitentiary records)? Report findings @ -No old charts were reviewed Differential Diagnosis (chest pain, altered mental status, abdominal pain women, abdominal pain men, vaginal bleeding, weakness, fever, dyspnea, syncope, headache, dizziness, GI bleed, back pain, seizure, CVA, palpatations, mental health, musculoskeletal)? @ -Differential GI Bleed: Esophageal varices, aortoenteric fistula, Yina-Simmons, gastritis, peptic ulcer disease, diverticulosis, inflammatory bowel disease, hemorrhoids, fissure, colitis, malignancy, Meckels diverticulum, this is not meant to be an all- inclusive list. EKG interpreted by me (3pts min.). @ -Sinus tachycardia rate of 109, WA interval 182, QRS duration 80, QTc [address] segment elevation. X-rays interpreted by me (1pt min.). @ -None done CT interpreted by me (1pt min.). @ -None done U/S interpreted by me (1pt. min.). @ -None done What testing was considered but not performed or refused? (CT, X-rays, U/S, labs)? Why? @ -None What meds were considered but not given or refused? Why? @ -None Did you discuss the management of the patient with other professionals (professionals i.e. DrMena, PA, GAS DISTRI[employer]ION PLANT OPERATOR, lab, RT, psych nurse, dialysis social worker, environmental protection forester, teacher, senior grants officer, showcase trimmer)? Give summary @ -Case discussed with Dr. Beckford, [facility], [facility]. All 3 declined due to lack of gastroenterology. I was able to discuss case with [facility] in [place], Dr. Jimenez will accept. Was smoking cessation discussed for >3mins.? @ -No Was critical care preformed (if so, how long)? @ -yes 35 minutes Were there social determinants of health that impacted care today? How? (Homelessness, low income, unemployed, alcoholism, drug addiction, transportatio n, low edu. Level, literacy, decrease access to med. care, snf, rehab)? @ -No Was there de-escalation of care discussed even if they declined (Discuss DNR or withdrawal of care, Hospice)? DNR status @ -No What co-morbidities impacted this encounter? (DM, HTN, Smoking, COPD, CAD, Cancer, CVA, ARF, Chemo, Hep., AIDS, mental health diagnosis, sleep apnea, morbid obesity)? @ -Diabetes, prior alcohol abuse Was patient admitted / discharged? Hospital course, mention meds given and route , prescriptions, significant lab abnormalities, going to OR and other pertinent info. @ -57-year-old male with upper GI bleed. Patient is tachycardic with stable blood pressure. He has stable initial hemoglobin. Mild lactic acid. He is given Protonix in the emergency department. He will be transferred to [facility] for further evaluation and treatment. Undiagnosed new problem with uncertain prognosis? @ -No Drug Therapy requiring intensive monitoring for toxicity (Heparin, Nitro, Insulin, Cardizem)? @ -No Were any procedures done? @ -No Diagnosis/symptom? @ -[Upper GI bleed Acute, or Chronic, or Acute on Chronic? @ -[Acute Uncomplicated (without systemic symptoms) or Complicated (systemic symptoms)? @ -default Side effects of treatment? @ -No Exacerbation, Progression, or Severe Exacerbation? @ -No Poses a threat to life or bodily function? How? (Chest pain, USA, LA, pneumonia, PE, COPD, DKA, ARF, appy, cholecystitis, CVA, Diverticulitis, Homicidal, Suicidal, threat to staff... and all critical care pts) @ Yes, hemorrhagic shock - Lab Data Result diagrams: 11/21/22 11:26 11/21/22 11:26 Lab Results 11/21/22 11/21/22 11/21/22 Range/Units 11:26 11:26 11:26 WBC 10.2 (3.8-10.6) k/uL RBC 4.10 L (4.30-5.90) m/uL Hgb 13.4 (13.0-17.5) gm/dL Hct 38.4 L (39.0-53.0) % MCV 93.7 (80.0-100.0) fL MCH 32.6 (25.0-35.0) pg MCHC 34.8 (31.0-37.0) g/dL RDW 12.6 (11.5-15.5) % Plt Count 228 (150-450) k/uL MPV 8.7 Neutrophils % 85 % Lymphocytes % 8 % Monocytes % 6 % Eosinophils % 0 % Basophils % 0 % Neutrophils # 8.6 H (1.3-7.7) k/uL Lymphocytes # 0.8 L (1.0-4.8) k/uL Monocytes # 0.6 (0-1.0) k/uL Eosinophils # 0.0 (0-0.7) k/uL Basophils # 0.0 (0-0.2) k/uL PT 10.1 (9.0-12.0) sec INR 1.0 (<1.2) APTT 21.8 L (22.0-30.0) sec Sodium 135 L (137-145) mmol/L Potassium 4.6 (3.5-5.1) mmol/L Chloride 100 (98-107) mmol/L Carbon Dioxide 23 (22-30) mmol/L Anion Gap 12 mmol/L BUN 37 H (9-20) mg/dL Creatinine 0.95 (0.66-1.25) mg/dL Est GFR (CKD-EPI)AfAm >90 (>60 ml/min/1.73 sqM) Est GFR (CKD-EPI)NonAf 89 (>60 ml/min/1.73 sqM) Glucose 276 H (74-99) mg/dL Plasma Lactic Acid Gerald (0.7-2.0) mmol/L Calcium 10.1 (8.4-10.2) mg/dL Magnesium 1.9 (1.6-2.3) mg/dL Total Bilirubin 1.2 (0.2-1.3) mg/dL AST 69 H (17-59) U/L ALT 59 H (4-49) U/L Alkaline Phosphatase 113 (38-126) U/L Total Protein 7.2 (6.3-8.2) g/dL Albumin 4.0 (3.5-5.0) g/dL Blood Type Blood Type Confirm Blood Type Recheck Bld Type Recheck Status Antibody Screen Spec Expiration Date 11/21/22 11/21/22 11/21/22 Range/Units 11:26 11:30 11:32 WBC (3.8-10.6) k/uL RBC (4.30-5.90) m/uL Hgb (13.0-17.5) gm/dL Hct (39.0-53.0) % MCV (80.0-100.0) fL MCH (25.0-35.0) pg MCHC (31.0-37.0) g/dL RDW (11.5-15.5) % Plt Count (150-450) k/uL MPV Neutrophils % % Lymphocytes % % Monocytes % % Eosinophils % % Basophils % % Neutrophils # (1.3-7.7) k/uL Lymphocytes # (1.0-4.8) k/uL Monocytes # (0-1.0) k/uL Eosinophils # (0-0.7) k/uL Basophils # (0-0.2) k/uL PT (9.0-12.0) sec INR (<1.2) APTT (22.0-30.0) sec Sodium (137-145) mmol/L Potassium (3.5-5.1) mmol/L Chloride (98-107) mmol/L Carbon Dioxide (22-30) mmol/L Anion Gap mmol/L BUN (9-20) mg/dL Creatinine (0.66-1.25) mg/dL Est GFR (CKD-EPI)AfAm (>60 ml/min/1.73 sqM) Est GFR (CKD-EPI)NonAf (>60 ml/min/1.73 sqM) Glucose (74-99) mg/dL Plasma Lactic Acid Gerald 2.6 H* (0.7-2.0) mmol/L Calcium (8.4-10.2) mg/dL Magnesium (1.6-2.3) mg/dL Total Bilirubin (0.2-1.3) mg/dL AST (17-59) U/L ALT (4-49) U/L Alkaline Phosphatase (38-126) U/L Total Protein (6.3-8.2) g/dL Albumin (3.5-5.0) g/dL Blood Type O Positive Blood Type Confirm O Positive Blood Type Recheck No Previous Record Bld Type Recheck Status CABO Indicated Antibody Screen NEGATIVE Spec Expiration Date 11/24/2022 - 2331 Critical Care Time Critical Care Time: Yes Total Critical Care Time: 35 Disposition Clinical Impression: Hematemesis Disposition: OTHER INSTITUTION NOT DEFINED Condition: Serious Is patient prescribed a controlled substance at d/c from ED?: No Referrals: [facility] [Primary Care Provider] - 1-2 days Time of Disposition: 13:15 - Out of Hospital Transfer - Req. Specs Out of Hospital Transfer - Requested Specifics: Other Emergency Center ([facility])
[2022-11-21 11:52] LABS: ALT 59 U/L (4-49); AST 69 U/L (17-59); African American GFR (CKD) >90 (>60 ml/min/1.73 sqM); Alkaline Phosphatase 113 U/L (38-126); Anion Gap 12 mmol/L; Blood Urea Nitrogen 37 mg/dL (9-20); Calcium 10.1 mg/dL (8.4-10.2); Carbon Dioxide 23 mmol/L (22-30); Chloride 100 mmol/L (98-107); Glucose 276 mg/dL (74-99); Magnesium 1.9 mg/dL (1.6-2.3); Non-African American GFR(CKD) 89 (>60 ml/min/1.73 sqM); Potassium 4.6 mmol/L (3.5-5.1); Sodium 135 mmol/L (137-145); Total Bilirubin 1.2 mg/dL (0.2-1.3); Total Protein 7.2 g/dL (6.3-8.2)
[2022-11-21 12:04] LABS: Prothrombin Time 10.1 sec (9.0-12.0)
[2022-11-21 12:06] LABS: Partial Thromboplastin Time 21.8 sec (22.0-30.0)
[2022-11-21 13:30] VITALS: BP 146/85; PULSE 105
== END 2022-11-21 13:44 | disposition other institution (70) ==
LOC: EC 11:05
DX: K92.0 Hematemesis (principal); E11.9 Type 2 diabetes mellitus without complications; E78.5 Hyperlipidemia, unspecified; I10 Essential (primary) hypertension; F41.9 Anxiety disorder, unspecified; F32.A Depression, unspecified; F12.90 Cannabis use, unspecified, uncomplicated; Z79.4 Long term (current) use of insulin; Z79.899 Other long term (current) drug therapy
CPT/HCPCS: 36415; 93005; 86900; 86901; 80053; 83605; 83735; 85025; 85610; 85730; 86850; 99291; 96374; 96375; 96361 ×2; J2405; C9113

== ENCOUNTER → 2023-01-17 | Outpatient (CLI) | payer OTHER ==
[2023-01-17 13:08] VITALS: BP 150/88; PULSE 105; RESP 16; TEMP 98.4
--- NOTE | 2023-01-17 14:43 | P.PAINPG ---
PQRS Measure Charge Sheet Comment: HISTORY OF PRESENT ILLNESS: 57 yr old male as a referral from Dr Zelaya presents today w severe and chronic neck pain x 3 mo secondary to DDD, spondylosis and facet arthropathy without myelopathy for evaluation. Pt states pain level is provoked at 6/10 in intensity, constant, localized in the lower cervical spine, achy in character w shooting pain towards BUEs. Pain is provoked by standing/ walking for periods of 15 min or more. Pain is alleviated by heat, medications (Naproxen, Tyl), topical, sitting, repositioning and rest. PMH: OA, IDDM II, Hyperlipidemia, HTN, GERD, MDD/ Anxiety Additional Family Medical History / Comment(s): CVA X2, . PSH: Adenoidectomy, Cholecystectomy, L Ankle Surgery, Tonsillectomy SH: Hx of ETOH abuse (2016), Never smoker, Cannabis use FH: Fa- CA, CVA All: See list Meds: See list REVIEW OF ORGAN SYSTEMS: CONSTITUTIONAL: No fevers or chills. No recent weight loss. NEUROLOGICAL: + numbness and tingling along the distal extremities. No seizure disorders or headaches. MUSCULOSKELETAL: + pain PSYCHIATRIC: Denies current depression or suicidal thoughts. Physical Examinations : Constitutional : Cooperative , not in acute distress . Neurologic : Cranial nerve II to XII intact. No focal neurological deficits. Psychiatric : alert & oriented x 3. Matching mood & appropriate affect. Judgment & insight intact. Musculoskeletal : Cervical Spine Motor strength in the deltoid and biceps: Normal right side. Normal Left side Motor strength biceps and the wrist extensors: Normal right side . Normal left side Motor strength in the triceps muscle: Normal right side. Normal left side Deep tendon reflexes: Normal at the biceps. Normal at Brachioradialis. Normal at triceps Vertebral body tenderness to deep palpation Cervical facet loading test: positive bilaterally Spurling test: positive bilaterally Neck distraction test: positive bilaterally Shawn sign: positive bilaterally Lumbar spine Motor strength lower extremities ,thigh and legs 5/5 Right side , 5/5 Left side Deep tendon reflexes : Normal Knee Jerk. Normal Ankle Jerk Vertebral body tenderness over Rodriguez Test positive Lumbar facet Loading Test: positive Right / positive Left Range of motion of the lumbar spine Flexion 30 degrees, extension 10 degrees Straight Leg Raise test: Left/ Right positive at degree Katina test: positive right / positive left. Severe tenderness over the Sacroiliac joint on the Right / Left sides Gaenslen test: positive bilaterally Seated flexion test: positive bilaterally. Sacral spine : Severe tenderness over the Sacroiliac j oint: right side / left side Range of motion: Flexion of the lumbar spine <60 degrees Range of motion: Extension of the lumbar spine <20 degrees Gaenslen's Test positive Scotty's Test positive Kaitna test: positive right side / left side Thigh Thrust Test Sacral Thrust Test Imaging: X-rays cervical spine from 02/02/22 reviewed Assessment/ Plan : Cervical DDD Recommendation of MRI cervical spine, PT x 6 wks M50.30 May RTC in 6 wks for a re evaluation. All questions answered. I have spent greater than 30 minutes on patient care today. Dr Pascual was available by phone for the evaluation of this patient. The time was used to review the medical records including relevant urine studies and Prescription history (MAPs), review of the available imaging, evaluation and examination of the patient, coordination of care with the medical staff and if applicable referring physicians, as well as creation of the medical record Home Medications: Ambulatory Orders Atorvastatin Calcium [Lipitor] 10 mg PO HS 08/10/21 Naltrexone HCl [Revia] 50 mg PO HS 08/10/21 lisinopriL [Zestril] 20 mg PO HS 08/10/21 amLODIPine [Norvasc] 5 mg PO HS 30 Days #30 tab 08/31/21 Insulin Aspart [Insulin Aspart Flexpen] 1 - 40 unit SQ TID PRN 11/19/21 Insulin Glargine,Hum.rec.anlog [Lantus Solostar Pen] 13 unit SQ BID 11/19/21 Naproxen (Unknown Dose) 1 tab PO BID 11/19/21 Controlled Substance Measures - Controlled Substance Measures Is patient prescribed a controlled substance at discharge?: No
== END ==
LOC: PNWHC3 12:32
PROVIDERS: ATTEND Specialist
DX: M54.50 Low back pain, unspecified (principal); M50.30 Other cervical disc degeneration, unspecified cervical region; M19.90 Unspecified osteoarthritis, unspecified site; E11.9 Type 2 diabetes mellitus without complications; E78.5 Hyperlipidemia, unspecified; I10 Essential (primary) hypertension; K21.9 Gastro-esophageal reflux disease without esophagitis; F41.9 Anxiety disorder, unspecified; F32.9 Major depressive disorder, single episode, unspecified; Z79.4 Long term (current) use of insulin; Z79.899 Other long term (current) drug therapy
CPT/HCPCS: 99211

== ENCOUNTER → 2023-02-02 | Outpatient (CLI) | payer OTHER ==
--- NOTE | 2023-02-02 20:57 | MR ---
MRI CERVICAL SPINE: CLINICAL HISTORY: Neck and mid back pain into arms Neck and mid back pain into arms TECHNIQUE: Multiplanar, multisequence imaging of the cervical spine is performed without IV contrast. COMPARISON: Cervical spine x-ray earlier today FINDINGS: Sagittal images of the cervical spine show the craniocervical junction to appear within nor mal limits. Slight levoconvex scoliotic curvature centered upper thoracic spine on coronal images. T he cervical and upper thoracic spinal cord is normal in caliber and signal. There is grade 1 retrolis thesis C4 on C5. The vertebral body heights are normal. Moderate to advanced disc space narrowing gre atest posterior C4-C5 level with heterogeneous Modic type II endplate changes. Similar findings noted at C6-C7 level. Axial images at C2-C3 level appear within normal limits. Axial images at C3-C4 level broad-based posterior disc protrusion mildly effacing the anterior thecal sac with uncovertebral facet degenerative changes causing moderate bilateral neural foraminal narrow ing. Axial images at C4-C5 levels with spondylolisthesis with broad-based posterior disc protrusion and un covertebral facet degenerative changes bilaterally. There is effacement of the anterior thecal sac wi th moderate to advanced right greater than left bilateral neural foraminal narrowing. Axial images at C5-C6 level broad-based posterior disc protrusion effacing the anterior thecal sac an d uncovertebral facet degenerative changes bilaterally causing moderate to advanced bilateral neural foraminal narrowing. Axial images at C6-C7 level shows central disc protrusion effacing anterior thecal sac of the ventral surface of spinal cord and causing moderate to advanced right greater than left bilateral neural for aminal narrowing. Axial images at C7-T1 level appear within normal limits. IMPRESSION: Multilevel degenerative changes in the cervical spine greatest at C4-C5 through C6-C7 lev els as detailed above.
== END | disposition home or self-care (01) ==
LOC: RADMRIMAIN 19:00
PROVIDERS: ATTEND Specialist
DX: M47.812 Spondylosis without myelopathy or radiculopathy, cervical region (principal); M50.31 Other cervical disc degeneration, high cervical region
CPT/HCPCS: 72141

== ENCOUNTER → 2023-03-28 | Outpatient (CLI) | payer OTHER ==
--- NOTE | 2023-03-28 14:46 | P.PAINPG ---
Objective - Vital Signs Vital signs: Intake & Output 03/27/23 03/28/23 03/28/23 18:59 06:59 18:59 Weight 100.698 kg PQRS Measure Charge Sheet Comment: HISTORY OF PRESENT ILLNESS: 57 yr old male presents today w severe and chronic neck pain x 3 mo secondary to DDD, spondylosis and facet arthropathy without myelopathy for evaluation of cervical MRI results. Pt states pain level is provoked at 6/10 in intensity, constant, localized in the lower cervical spine, predominantly axial, achy in character w occasional shooting pain towards BUEs. Pain is provoked by standing/ walking for periods of 15 min or more. Pain is alleviated by heat, medications, topical, sitting, repositioning and rest. Oswestry axial pain score of 26. Interventional procedures include DENIES Medications include Tyl, Naproxen REVIEW OF ORGAN SYSTEMS: CONSTITUTIONAL: No fevers or chills. No recent weight loss. NEUROLOGICAL: + numbness and tingling along the distal extremities. No seizure disorders or headaches. MUSCULOSKELETAL: + pain PSYCHIATRIC: Denies current depression or suicidal thoughts. Physical Examinations : Constitutional : Cooperative , not in acute distress . Neurologic : Cranial nerve II to XII intact. No focal neurological deficits. Psychiatric : alert & oriented x 3. Matching mood & appropriate affect. Judgment & insight intact. Musculoskeletal : Cervical Spine Motor strength in the deltoid and biceps: Normal right side. Normal Left side Motor strength biceps and the wrist extensors: Normal right side . Normal left side Motor strength in the triceps muscle: Normal right side. Normal left side Deep tendon reflexes: Normal at the biceps. Normal at Brachioradialis. Normal at triceps Vertebral body tenderness to deep palpation Cervical facet loading test: positive bilaterally Spurling test: positive bilaterally Neck distraction test: positive bilaterally Shawn sign: positive bilaterally Lumbar spine Motor strength lower extremities ,thigh and legs 5/5 Right side , 5/5 Left side Deep tendon reflexes : Normal Knee Jerk. Normal Ankle Jerk Vertebral body tenderness over Rodriguez Test positive Lumbar facet Loading Test: positive Right / positive Left Range of motion of the lumbar spine Flexion 30 degrees, extension 10 degrees Straight Leg Raise test: Left/ Right positive at degree Katina test: positive right / positive left. Severe tenderness over the Sacroiliac joint on the Right / Left sides Gaenslen test: positive bilaterally Seated flexion test: positive bilaterally. Sacral spine : Severe tenderness over the Sacroiliac joint: right side / left side Range of motion: Flexion of the lumbar spine <60 degrees Range of motion: Extension of the lumbar spine <20 degrees Gaenslen's Test positive Scotty's Test positive Katina test: positive right side / left side Thigh Thrust Test Sacral Thrust Test Imaging: X-rays cervical spine from 02/02/22 reviewed MRI non contrast of the cervical spine from 02/02/23 reviewed Assessment/ Plan : Cervical DDD Recommendation of ELSIE C6-C7 #1. May need a series of injections for optimal pain relief. Risks, benefits of procedure discussed and patient verbalized understanding. Protocol for discontinuation/continuation of medications surrounding procedure discussed. All questions answered. I have spent greater than 30 minutes on patient care today. Dr Pascual was available by phone for the evaluation of this patient. The time was used to review the medical records including relevant urine studies and Prescription history (MAPs), review of the available imaging, evaluation and examination of the patient, coordination of care with the medical staff and if applicable referring physicians, as well as creation of the medical record PQRS Narrative: Hx Alcohol Use (MH) No: ALCOHOL FREE FOR 1 YEAR Home Medications: Ambulatory Orders Atorvastatin Calcium [Lipitor] 10 mg PO HS 08/10/21 Naltrexone HCl [Revia] 50 mg PO HS 08/10/21 lisinopriL [Zestril] 20 mg PO HS 08/10/21 amLODIPine [Norvasc] 5 mg PO HS 30 Days #30 tab 08/31/21 Insulin Aspart [Insulin Aspart Flexpen] 1 - 40 unit SQ TID PRN 11/19/21 Insulin Glargine,Hum.rec.anlog [Lantus Solostar Pen] 13 unit SQ BID 11/19/21 Naproxen (Unknown Dose) 1 tab PO BID 11/19/21 Controlled Substance Measures - Controlled Substance Measures Is patient prescribed a controlled substance at discharge?: No
[2023-03-28 14:50] VITALS: BP 128/72; PULSE 88; RESP 15; TEMP 97.5
== END ==
LOC: PNWHC3 13:39
PROVIDERS: ATTEND Specialist
DX: M50.30 Other cervical disc degeneration, unspecified cervical region (principal); F12.90 Cannabis use, unspecified, uncomplicated
CPT/HCPCS: 99211

== ENCOUNTER 2023-04-14 08:28 | Day surgery (SDC) | payer OTHER ==
[2023-04-14 09:05] VITALS: TEMP 97
[2023-04-14 09:08] LABS: Glucose,Whole Blood 161 mg/dL (70-110)
[2023-04-14] MEDS ORDERED: IOPAMIDOL M200 10 ML VIAL ONE (09:48)
[2023-04-14] MEDS ORDERED: DEXAMETHASONE SOD PHOSPHATE 10 MG/ML 1 ML VIAL ONE (09:48)
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
[2023-04-14 10:12] LABS: Glucose,Whole Blood 151 mg/dL (70-110)
[2023-04-14 10:39] VITALS: BP 138/80; PULSE 92; RESP 20
--- NOTE | 2023-04-14 12:30 | FL ---
EXAMINATION TYPE: FL guided pain mgmt statistic Intraoperative/procedural fluoroscopic services were provided. Total fluoroscopy time is 6 seconds with a total of 2 submitted images to PACS. Please see the operative/procedural note for further details. DAP: [id number] Gycm2
== END 2023-04-14 10:37 | disposition home or self-care (01) ==
LOC: ORPAIN 08:28
PROVIDERS: ATTEND Hospitalist
DX: M54.12 Radiculopathy, cervical region (principal); E10.9 Type 1 diabetes mellitus without complications; Z88.6 Allergy status to analgesic agent
CPT/HCPCS: 62321; J1100; Q9966

== ENCOUNTER 2023-05-05 19:06 | Emergency (ER) | payer OTHER ==
[2023-05-05 19:29] VITALS: TEMP 98.6
[2023-05-05 20:10] LABS: Basophils # (A) 0.1 k/uL (0-0.2); Basophils % (A) 1 %; Eosinophils % (A) 1 %; HCT 42.4 % (39.0-53.0); HGB 14.3 gm/dL (13.0-17.5); Lymphocytes # (A) 1.6 k/uL (1.0-4.8); Lymphocytes % (A) 20 %; MCH 31.8 pg (25.0-35.0); MCHC 33.6 g/dL (31.0-37.0); MCV 94.4 fL (80.0-100.0); Mean Platelet Volume 8.4; Monocytes # (A) 0.7 k/uL (0-1.0); Monocytes % (A) 9 %; Neutrophils # (A) 5.5 k/uL (1.3-7.7); Neutrophils % (A) 67 %; Platelet Count 276 k/uL (150-450); RBC 4.49 m/uL (4.30-5.90); RDW 12.8 % (11.5-15.5); WBC 8.2 k/uL (3.8-10.6)
--- NOTE | 2023-05-05 20:12 | CT ---
EXAMINATION TYPE: CT brain ary krause DATE OF EXAM: 05/05/2023 COMPARISON: None HISTORY: Seizure, states that he had another seizure earlier this month. CT DLP: 1508.3 mGycm, Automated exposure control for dose reduction was used. CONTRAST: Patient injected with 0 mL of Isovue 300. CT of the brain is performed utilizing 3 mm thick sections through the posterior fossa and 3 mm thick sections through the remaining calvarium. Study is performed within 24 hours of arrival to the hospital. No abnormal hyperdensity is present to suggest an acute intracranial hemorrhage. No mass lesion is evident. No acute infarcts are evident. Ventricles and sulci are appropriate for the patient age. Paranasal sinuses and mastoid air cells within the [id number] are clear. IMPRESSIONS: 1. No acute intracranial process. Follow-up MRI performed as clinically indicated CT cervical spine. COMPARISON: None CT of the cervical spine is performed in the axial plane at 2 mm thick sections. Reconstructed image s in the coronal, and sagittal plane are reviewed on the computer. No acute fractures are evident. There is minimal retrolisthesis of C4 posterior on C5. Disc space narrowing is present throughout the cervical spine appears greatest C4-5 and C6-7. Some va cuum phenomenon is present at C6-7. Vertebral body heights are preserved. No spinal canal stenosis is evident. Uncovertebral joint hypertrophy at C3-4 has moderate bilateral foraminal stenosis. Bilateral foramina l stenosis present C4-5 and some mild foraminal stenosis at C3-6-7. IMPRESSION: 1. Degenerative disc changes throughout the cervical spine. 2. Some minimal retrolisthesis of C5 for posterior and C5 may be present.
[2023-05-05 20:28] LABS: ALT 33 U/L (4-49); AST 49 U/L (17-59); Acetaminophen <10.0 ug/mL; African American GFR (CKD) >90 (>60 ml/min/1.73 sqM); Albumin 4.2 g/dL (3.5-5.0); Alcohol <10 mg/dL; Alkaline Phosphatase 150 U/L (38-126); Anion Gap 6 mmol/L; Blood Urea Nitrogen 15 mg/dL (9-20); Calcium 9.5 mg/dL (8.4-10.2); Carbon Dioxide 25 mmol/L (22-30); Chloride 102 mmol/L (98-107); Glucose 234 mg/dL (74-99); Magnesium 1.8 mg/dL (1.6-2.3); Non-African American GFR(CKD) 79 (>60 ml/min/1.73 sqM); Potassium 4.6 mmol/L (3.5-5.1); Salicylate <1.0 mg/dL; Sodium 133 mmol/L (137-145); Total Bilirubin 1.5 mg/dL (0.2-1.3); Total Protein 7.2 g/dL (6.3-8.2)
--- NOTE | 2023-05-05 20:50 | ED ---
Seizure HPI - General Chief Complaint: Syncope Stated Complaint: Seizure Time Seen by Provider: 05/05/23 19:17 Source: patient, EMS, RN notes reviewed, old records reviewed Mode of arrival: EMS Limitations: no limitations, altered mental status - History of Present Illness Initial Comments: This is a 58-year-old male to ER for evaluation of seizure versus syncope and public transportation. Patient presents to the ER stating that he has history of this before history of seizure usually related to alcohol withdrawal, denies current intoxication. Patient states currently feels well has no complaints of any chest pain shortness of breath or abdominal pain. Not currently on medications for seizures. MD Complaint: seizure, shaking -: minutes(s) Description of Episode: loss of consciousness, tonic-clonic movement -: second(s) Witnessed: yes - by bystander Trauma: Yes Seizure History: known seizure disorder, history of withdrawal seizures Place: home, work, street/outdoors Associated Symptoms: denies other symptoms Treatments Prior to Arrival: none - Related Data Home Medications Medication Instructions Recorded Confirmed Atorvastatin Calcium [Lipitor] 10 mg PO HS 08/10/21 05/13/23 Naltrexone HCl [Revia] 50 mg PO HS 08/10/21 05/13/23 Ergocalciferol [Vitamin D2 (1250 1 cap PO HS 04/08/23 05/13/23 Mcg = 29668 Iu)] Folic Acid 1 mg PO HS 04/08/23 05/13/23 Insulin Aspart (For Pump) [NovoLOG 0 - 30 units SQ ACHS PRN 04/08/23 05/13/23 (For Pump)] Insulin Aspart (For Pump) [NovoLOG 0.9 units SQ-PUMP CONTINUOUS 04/08/23 05/13/23 (For Pump)] Lisinopril-Hctz 10-12.5 mg 1 tab PO HS 04/08/23 05/13/23 [Zestoretic 10-12.5] amLODIPine [Norvasc] 10 mg PO HS 04/08/23 05/13/23 Ammonium Lactate Cream [Lac-Hydrin 1 applic TOPICAL DIRECTED PRN 05/13/23 05/13/23 12% Cream] Divalproex ER [Depakote ER] 500 mg PO BID 05/13/23 05/13/23 Insulin Glargine [Lantus Vial] 0 unit SQ DIRECTED PRN 05/13/23 05/13/23 Silver Sulfadiazine [Silver 1 applic TOPICAL DIRECTED PRN 05/13/23 05/13/23 Sulfadiazine 1%] Allergies Allergy/AdvReac Type Severity Reaction Status Date / Time No Known Allergies Allergy Verified 05/13/23 15:49 Review of Systems ROS Statement: Those systems with pertinent positive or pertinent negative responses have been documented in the HPI. ROS Other: All systems not noted in ROS Statement are negative. Past Medical History Past Medical History: Diabetes Mellitus, GERD/Reflux, Hyperlipidemia, Hypertension, Osteoarthritis (OA) Additional Past Medical History / Comment(s): Alchoholism - none x 16 mos., "bleeding ulcer" x 2 in 2022, tremors - worse when tired or agitated History of Any Multi-Drug Resistant Organisms: None Reported Past Surgical History: Adenoidectomy, Cholecystectomy, Orthopedic Surgery, Tonsillectomy Additional Past Surgical History / Comment(s): Left ankle surgery, RK ,cholecystectomy 2022 Past Anesthesia/Blood Transfusion Reactions: No Reported Reaction Additional Past Anesthesia/Blood Transfusion Reaction / Comment(s): states he metabolizes "local" anesthetic very quickly and is very concerned about how this will affect his procedure Past Psychological History: Anxiety, Depression, PTSD Smoking Status: Never smoker Past Alcohol Use History: Abuse Past Drug Use History: None Reported - Past Family History Mother Family Medical History: Congestive Heart Failure (CHF) Father Family Medical History: Cancer, CVA/TIA Additional Family Medical History / Comment(s): CVA X2, . General Exam Limitations: altered mental status General appearance: alert, in no apparent distress, anxious, lethargic, in distress Head exam: Present: normocephalic, normal inspection. Absent: atraumatic (Abrasion under right eye) Eye exam: Present: normal appearance, PERRL, EOMI. Absent: scleral icterus, conjunctival injection, periorbital swelling ENT exam: Present: normal exam, mucous membranes moist Neck exam: Present: normal inspection. Absent: tenderness, meningismus, lymphadenopathy Respiratory exam: Present: normal lung sounds bilaterally. Absent: respiratory distress, wheezes, rales, rhonchi, stridor Cardiovascular Exam: Present: regular rate, normal rhythm, normal heart sounds. Absent: systolic murmur, diastolic murmur, rubs, gallop, clicks GI/Abdominal exam: Present: soft, normal bowel sounds. Absent: distended, tenderness, guarding, rebound, rigid Extremities exam: Present: normal inspection, full ROM, normal capillary refill. Absent: tenderness, pedal edema, joint swelling, calf tenderness Back exam: Present: normal inspection Neurological exam: Present: alert, oriented X3, CN II-XII intact Psychiatric exam: Present: normal affect, normal mood Skin exam: Present: warm, dry, intact, normal color. Absent: rash Course Vital Signs 05/05/23 05/05/23 19:14 21:18 Temperature 98.6 F Pulse Rate 110 H 112 H Respiratory 16 18 Rate Blood Pressure 168/99 149/91 O2 Sat by Pulse 96 97 Oximetry - Reevaluation(s) Reevaluation #1: Medical records reviewed Reevaluation #2: No recurrent seizure here in the ER Reevaluation #3: Patient informed of results and questions answered Reevaluation #4: 05/05/23 20:49 Was pt. sent in by a medical professional or institution (Dr. PA, OFFICE INSPECTOR, urgent care, hospital, or correction...) When possible be specific @ -no Did you speak to anyone other than the patient for history (EMS, parent, family, police, friend...)? What history was obtained from this source @ -no Did you review nursing and triage notes (agree or disagree)? Why? @ -agree Are old charts reviewed (outside hosp., previous admission, EMS record, old EKG, old radiological studies, urgent care reports/EKG's, correction records)? Report findings @ -yes Differential Diagnosis (chest pain, altered mental status, abdominal pain women, abdominal pain men, vaginal bleeding, weakness, fever, dyspnea, syncope, headache, dizziness, GI bleed, back pain, seizure, CVA, palpatations, mental health, musculoskeletal)? @ -prior EKG interpreted by me (3pts min.). @ -yes X-rays interpreted by me (1pt min.). @ -yes negative for acute disease CT interpreted by me (1pt min.). @ -no U/S interpreted by me (1pt. min.). @ -no What testing was considered but not performed or refused? (CT, X-rays, U/S, labs)? Why? @ -none What meds were considered but not given or refused? Why? @ -none Did you discuss the management of the patient with other professionals (professionals i.e. , PA, OFFICE INSPECTOR, lab, RT, psych nurse, hospital social worker, burglar alarm mechanic, teacher, project control officer, correctional casework specialist)? Give summary @ -no Was smoking cessation discussed for >3mins.? @ -no Was critical care preformed (if so, how long)? @ -no Were there social determinants of health that impacted care today? How? ( Homelessness, low income, unemployed, alcoholism, drug addiction, transportation, low edu. Level, literacy, decrease access to med. care, senior living, rehab)? @ -none Was there de-escalation of care discussed even if they declined (Discuss DNR or withdrawal of care, Hospice)? DNR status @ -no What co-morbidities impacted this encounter? (DM, HTN, Smoking, COPD, CAD, Cancer, CVA, ARF, Chemo, Hep., AIDS, mental health diagnosis, sleep apnea, morbid obesity)? @ -none Was patient admitted / discharged? Hospital course, mention meds given and route, prescriptions, significant lab abnormalities, going to OR and other pertinent info. @ - Undiagnosed new problem with uncertain prognosis? @ -no Drug Therapy requiring intensive monitoring for toxicity (Heparin, Nitro, Insulin, Cardizem)? @ -no Were any procedures done? @ -no Diagnosis/symptom? @ - Acute, or Chronic, or Acute on Chronic? @ -Acute Uncomplicated (without systemic symptoms) or Complicated (systemic symptoms)? @ -Complicated Side effects of treatment? @ -no Exacerbation, Progression, or Severe Exacerbation? @ -exacerbation Poses a threat to life or bodily function? How? (Chest pain, USA, NH, pneumonia, PE, COPD, DKA, ARF, appy, cholecystitis, CVA, Diverticulitis, Homicidal, Suicidal, threat to staff... and all critical care pts) @ -yes Reevaluation #5: Differential Seizure: Recurrent seizure disorder, febrile seizure, alcohol withdrawal, stimulants, meningitis, encephalitis, intercranial hemorrhage, intracranial tumor, stroke, eclampsia, thyrotoxicosis, hypocalcemia, hyponatremia, hypernatremia, hypomagnesemia, psychogenic, this is not meant to be an all-inclusive list. Medical Decision Making - Medical Decision Making 58 male to ER for evaluation of seizure activity and public transportation prior to arrival. Patient does admit to history of alcoholism, he does have history of withdrawal seizure, patient at this time feels well does not want hospital admission, patient will be discharged home - Lab Data Result diagrams: 05/05/23 19:34 05/05/23 19:34 Lab Results 05/05/23 05/05/23 05/05/23 Range/Units 19:34 19:34 21:16 WBC 8.2 (3.8-10.6) k/uL RBC 4.49 (4.30-5.90) m/uL Hgb 14.3 (13.0-17.5) gm/dL Hct 42.4 (39.0-53.0) % MCV 94.4 (80.0-100.0) fL MCH 31.8 (25.0-35.0) pg MCHC 33.6 (31.0-37.0) g/dL RDW 12.8 (11.5-15.5) % Plt Count 276 (150-450) k/uL MPV 8.4 Neutrophils % 67 % Lymphocytes % 20 % Monocytes % 9 % Eosinophils % 1 % Basophils % 1 % Neutrophils # 5.5 (1.3-7.7) k/uL Lymphocytes # 1.6 (1.0-4.8) k/uL Monocytes # 0.7 (0-1.0) k/uL Eosinophils # 0.0 (0-0.7) k/uL Basophils # 0.1 (0-0.2) k/uL Sodium 133 L (137-145) mmol/L Potassium 4.6 (3.5-5.1) mmol/L Chloride 102 (98-107) mmol/L Carbon Dioxide 25 (22-30) mmol/L Anion Gap 6 mmol/L BUN 15 (9-20) mg/dL Creatinine 1.04 (0.66-1.25) mg/dL Est GFR (CKD-EPI)AfAm >90 (>60 ml/min/1.73 sqM) Est GFR (CKD-EPI)NonAf 79 (>60 ml/min/1.73 sqM) Glucose 234 H (74-99) mg/dL POC Glucose (mg/dL) 253 H (70-110) mg/dL POC Glu Clinical Informaticist ID Sara Ortiz Calcium 9.5 (8.4-10.2) mg/dL Magnesium 1.8 (1.6-2.3) mg/dL Total Bilirubin 1.5 H (0.2-1.3) mg/dL AST 49 (17-59) U/L ALT 33 (4-49) U/L Alkaline Phosphatase 150 H (38-126) U/L Total Protein 7.2 (6.3-8.2) g/dL Albumin 4.2 (3.5-5.0) g/dL Salicylates <1.0 mg/dL Acetaminophen <10.0 ug/mL Serum Alcohol <10 mg/dL Disposition Clinical Impression: Vasovagal syncope, Seizure, Alcohol abuse, Vomiting, Abrasion of right eye Disposition: HOME SELF-CARE Condition: Fair Instructions (If sedation given, give patient instructions): New-Onset Seizure in Adults (ED) Is patient prescribed a controlled substance at d/c from ED?: No Referrals: Yasemin Zelaya NPC [Primary Care Provider] - 1-2 days Time of Disposition: 20:50
[2023-05-05] MEDS: SODIUM CHLORIDE 0.9% 1,000 ML IV STA (20:51)
[2023-05-05] MEDS: LORazepam 2 MG/ML INJ IV STA (20:54)
[2023-05-05 21:18] LABS: Glucose,Whole Blood 253 mg/dL (70-110)
[2023-05-05 21:22] VITALS: BP 149/91; PULSE 112; RESP 18
== END 2023-05-05 21:31 | disposition home or self-care (01) ==
LOC: EC 19:06
DX: R55 Syncope and collapse (principal); G40.909 Epilepsy, unspecified, not intractable, without status epilepticus; S00.211A Abrasion of right eyelid and periocular area, initial encounter; F10.10 Alcohol abuse, uncomplicated; R11.10 Vomiting, unspecified; E11.9 Type 2 diabetes mellitus without complications; I10 Essential (primary) hypertension; E78.5 Hyperlipidemia, unspecified; Z79.4 Long term (current) use of insulin; Z79.899 Other long term (current) drug therapy; Z90.49 Acquired absence of other specified parts of digestive tract; X58.XXXA Exposure to other specified factors, initial encounter
CPT/HCPCS: 36415; 80053; 83735; 85025; 80143; 80179; 72125; 70450; 99285; 96374; 96361; G0480; J2060; 80320

== ENCOUNTER → 2023-05-09 | Outpatient (CLI) | payer OTHER ==
[2023-05-09 13:52] VITALS: BP 185/110; PULSE 88; RESP 15; TEMP 98.6
--- NOTE | 2023-05-09 15:07 | P.PAINPG ---
PQRS Measure Charge Sheet Comment: HISTORY OF PRESENT ILLNESS: A 58 yr old male presents today w severe and chronic neck pain x 3 mo secondary to DDD, spondylosis and facet arthropathy without myelopathy for evaluation s/p ELSIE C7-T1 #1. Pt states he experienced 80 % pain relief x 2 wks s/p procedure. Pt states pain level is provoked at 6/10 in intensity, constant, localized in the lower cervical spine, predominantly axial, achy in character w occasional shooting pain towards BUEs. Pain is provoked by standing/ walking for periods of 15 min or more. Pain is alleviated by heat, medications, topical, sitting, repositioning and rest. Cervical disability score of 25. Interventional procedures include ELSIE C6-C7 x1 Medications include Tyl, Naproxen REVIEW OF ORGAN SYSTEMS: CONSTITUTIONAL: No fevers or chills. No recent weight loss. NEUROLOGICAL: + numbness and tingling along the distal ext remities. No seizure disorders or headaches. MUSCULOSKELETAL: + pain PSYCHIATRIC: Denies current depression or suicidal thoughts. Physical Examinations : Constitutional : Cooperative , not in acute distress . Neurologic : Cranial nerve II to XII intact. No focal neurological deficits. Psychiatric : alert & oriented x 3. Matching mood & appropriate affect. Judgment & insight intact. Musculoskeletal : Cervical Spine Motor strength in the deltoid and biceps: Normal right side. Normal Left side Motor strength biceps and the wrist extensors: Normal right side . Normal left side Motor strength in the triceps muscle: Normal right side. Normal left side Deep tendon reflexes: Normal at the biceps. Normal at Brachioradialis. Normal at triceps Vertebral body tenderness to deep palpation C6-C7 Cervical facet loading test: positive bilaterally Spurling test: positive BL C6-C7 Neck distraction test: positive bilat erally Shawn sign: positive bilaterally Lumbar spine Motor strength lower extremities ,thigh and legs 5/5 Right side , 5/5 Left side Deep tendon reflexes : Normal Knee Jerk. Normal Ankle Jerk Vertebral body tenderness over Rodriguez Test positive Lumbar facet Loading Test: positive Right / positive Left Range of motion of the lumbar spine Flexion 30 degrees, extension 10 degrees Straight Leg Raise test: Left/ Right positive at degree Katina test: positive right / positive left. Severe tenderness over the Sacroiliac joint on the Right / Left sides Gaenslen test: positive bilaterally Seated flexion test: positive bilaterally. Sacral spine : Severe tenderness over the Sacroiliac joint: right side / left side Range of motion: Flexion of the lumbar spine <60 degrees Range of motion: Extension of the lumbar spine <20 degrees Gaenslen's Test positive Scotty's Test positive Katina test: positive right side / left side Thigh Thrust Test Sacral Thrust Test Imaging: X-rays cervical spine from 02/02/22 reviewed MRI non contrast of the cervical spine from 02/02/23 reviewed Assessment/ Plan : Cervical DDD Recommendation of ELSIE C6-C7 #2. May need a series of injections for optimal pain relief. Risks, benefits of procedure discussed and patient verbalized understanding. Protocol for discontinuation/continuation of medications surrounding procedure discussed. All questions answered. I have spent greater than 30 minutes on patient care today. Dr Pascual was available by phone for the evaluation of this patient. The time was used to review the medical records including relevant urine studies and Prescription history (MAPs), review of the available imaging, evaluation and examination of the patient, coordination of care with the medical staff and if applicable referring physicians, as well as creation of the medical record PQRS Narrative: Hx Alcohol Use (MH) No: ALCOHOL FREE FOR 1 YEAR Home Medications: Ambulatory Orders Atorvastatin Calcium [Lipitor] 10 mg PO HS 08/10/21 Naltrexone HCl [Revia] 50 mg PO HS 08/10/21 Ergocalciferol [Vitamin D2 (1250 Mcg = 26502 Iu)] 1 cap PO HS 04/08/23 Esomeprazole Magnesium 20 mg PO QAM 04/08/23 Folic Acid 1 mg PO HS 04/08/23 Insulin Aspart (For Pump) [NovoLOG (For Pump)] 0 - 30 units SQ ACHS 04/08/23 Insulin Aspart (For Pump) [NovoLOG (For Pump)] 0.9 units SQ-PUMP CONTINUOUS 04/08/23 Lisinopril-Hctz 10-12.5 mg [Zestoretic 10-12.5] 1 tab PO HS 04/08/23 amLODIPine [Norvasc] 10 mg PO HS 04/08/23 Controlled Substance Measures - Controlled Substance Measures Is patient prescribed a controlled substance at discharge?: No
== END ==
LOC: PNWHC3 13:09
PROVIDERS: ATTEND Specialist
DX: M50.223 Other cervical disc displacement at C6-C7 level (principal)
CPT/HCPCS: 99211

== ENCOUNTER 2023-05-26 09:13 | Day surgery (SDC) | payer OTHER ==
[2023-05-26 10:23] VITALS: TEMP 98.2
[2023-05-26 10:26] LABS: Glucose,Whole Blood 163 mg/dL (70-110)
[2023-05-26] MEDS ORDERED: DEXAMETHASONE SOD PHOSPHATE 10 MG/ML 1 ML VIAL ONE (10:45)
[2023-05-26] MEDS ORDERED: ROPIVACAINE 5MG/ML 20ML VIAL ONE (10:45)
[2023-05-26] MEDS ORDERED: IOPAMIDOL M200 10 ML VIAL ONE (10:45)
--- NOTE | 2023-05-26 11:04 | P.PCN ---
Description of Procedure: PROCEDURE 1. Cervical epidural steroid injection under fluoroscopic guidance, C6-7 (fluoroscopy images available in the radiology department ) 2. Cervical epidurogram. PREOPERATIVE DIAGNOSIS: 1- Cervical Degenerative Disc Diseases 2- Cervical radiculopathy., 3-cervical spondylosis with cervical Facet arthropathy without myelopathy.4-cervical spinal stenosis POSTOPERATIVE DIAGNOSIS: : 1- Cervical Degenerative Disc Diseases , 2- Cervical radiculopathy. 3-,cervical spondylosis with cervical Facet arthropathy without myelopathy. 4-cervical spinal stenosis ANESTHESIA: Local anesthetics infiltration. In the OR continuous pulse ox, EKG, blood pressure and verbal communication was maintained. EBL : None PROCEDURE INDICATION: The patient with neck pain and radiculitis unresponsive to conservative treatment consents for procedure. Discussed the procedure, alternatives and possible complications which may include increased pain, infection, bleeding, nerve damage, paralysis all of which could be permanent. Patient understands and all questions were answered. PROCEDURE DESCRIPTION : After getting consent patient was taken to the OR , positioned in prone position and time out was completed. A pillow was placed under the patients chest to increase the cervical interlaminar space. The cervical area was prepped and draped in the usual sterile fashion. Using anterior-posterior fluoroscopy, interlaminar space was identified and the skin over this site was marked and then infiltrated with 1% lidocaine subcutaneously. Subsequently, a 20-gauge 3-1/2-inch Tuohy epidural needle was inserted and advanced toward the epidural space with the loss of resistance technique using a syringe filled with preservative-free normal saline and guided by AP and lateral fluoroscopy. Negative CSF, negative blood, negative paresthesia. The correct needle position in the epidural space was verified with the injection of 2 mL of the water soluble contrast dye Isovue-200 and observing an excellent epidurogram with the epidural spread of the dye, after repeat negative aspiration 3 mL solution was injected which consists of 1 mL of preservative-free normal saline mixed with 2 mL of 20 mg dexamethasone and a washout of epidurogram was seen. Needle was withdrawn intact, skin was cleansed, and bandages were applied. Disposition: Patient tolerated the procedure well. No complication. Patient was placed in supine position and transferred to the recovery room area in stable condition and there was no evidence of upper or lower extremity motor or sensory deficit after the procedure patient was discharged from recovery room after discharge criteria met and home discharge instructions was given by the staff and patient will follow with the pain clinic in 2-4 weeks
[2023-05-26 11:16] LABS: Glucose,Whole Blood 163 mg/dL (70-110)
[2023-05-26 11:24] VITALS: BP 148/89; PULSE 77; RESP 16
--- NOTE | 2023-05-26 11:29 | FL ---
EXAMINATION TYPE: FL guided pain mgmt statistic Intraoperative/procedural fluoroscopic services were provided. Total fluoroscopy time is 21.3 seconds with a total of 2 submitted images to PACS. Please s ee the operative/procedural note for further details. DAP: 0.0 493 mGym2
== END 2023-05-26 11:35 | disposition home or self-care (01) ==
LOC: ORPAIN 09:13
PROVIDERS: ATTEND Pain Medicine Interventional Pain Medicine
DX: M50.123 Cervical disc disorder at C6-C7 level with radiculopathy (principal); M48.02 Spinal stenosis, cervical region; M47.22 Other spondylosis with radiculopathy, cervical region; E11.9 Type 2 diabetes mellitus without complications; Z96.41 Presence of insulin pump (external) (internal); Z79.4 Long term (current) use of insulin; Z88.8 Allergy status to other drugs, medicaments and biological substances
CPT/HCPCS: 62321; J1100; Q9966; J2795

== ENCOUNTER → 2023-08-08 | Outpatient (CLI) | payer OTHER ==
[2023-08-08 10:51] VITALS: BP 149/92; PULSE 86; RESP 16
--- NOTE | 2023-08-08 14:09 | P.PAINPG ---
PQRS Measure Charge Sheet Comment: HISTORY OF PRESENT ILLNESS: A 58 yr old male presents today w severe and chronic neck pain x 3 mo secondary to DDD, spondylosis and facet arthropathy without myelopathy for evaluation s/p ELSIE C6-C7 #2. Pt states he experienced 70 % pain relief x 2 wks s/p procedure. Pt states pain level is provoked at 6 /10 in intensity, constant, localized in the lower cervical spine, predominantly axial, achy in character w occasional shooting pain towards BL shoulders. Pain is provoked by standing/ walking for periods of 15 min or more. Pain is alleviated by PT x 4 wks which he is currently in, heat, medications, topical, sitting, repositioning and rest. Cervical disability score of 24. Interventional procedures include ELSIE C6-C7 x2 Medications include Tyl, Naproxen REVIEW OF ORGAN SYSTEMS: CONSTITUTIONAL: No fevers or chills. No recent weight loss. NEUROLOGICAL: + numbness and tingling along the distal extremities. No seizure disorders or headaches. MUSCULOSKELETAL: + pain PSYCHIATRIC: Denies current depression or suicidal thoughts. Physical Examinations : Constitutional : Cooperative , not in acute distress . Neurologic : Cranial nerve II to XII intact. No focal neurological deficits. Psychiatric : alert & oriented x 3. Matching mood & appropriate affect. Judgment & insight intact. Musculoskeletal : Cervical Spine Motor strength in the deltoid and biceps: Normal right side. Normal Left side Motor strength biceps and the wrist extensors: Normal right side . Normal left side Motor strength in the triceps muscle: Normal right side. Normal left side Deep tendon reflexes: Normal at the biceps. Normal at Brachioradialis. Normal at triceps Vertebral body tenderness to deep palpation C6-C7 Cervical facet loading test: positive bilaterally Spurling test: positive BL C6-C7 Neck distraction test: positive bilaterally Shawn sign: positive bilaterally Lumbar spine Motor strength lower extremities ,thigh and legs 5/5 Right side , 5/5 Left side Deep tendon reflexes : Normal Knee Jerk. Normal Ankle Jerk Vertebral body tenderness over Rodriguez Test positive Lumbar facet Loading Test: positive Right / positive Left Range of motion of the lumbar spine Flexion 30 degrees, extension 10 degrees Straight Leg Raise test: Left/ Right positive at degree Katina test: positive right / positive left. Severe tenderness over the Sacroiliac joint on the Right / Left sides Gaenslen test: positive bilaterally Seated flexion test: positive bilaterally. Sacral spine : Severe tenderness over the Sacroiliac joint: right side / left side Range of motion: Flexion of the lumbar spine <60 degrees Range of motion: Extension of the lumbar spine <20 degrees Gaenslen's Test positive Scotty's Test positive Katina test: positive right side / left side Thigh Thrust Test Sacral Thrust Test Imaging: X-rays cervical spine from 02/02/22 reviewed MRI non contrast of the cervical spine from 02/02/23 reviewed Assessment/ Plan : Cervical DDD Recommendation of ELSIE C6-C7 #3. May need a series of injections for optimal pain relief. Risks, benefits of procedure discussed and patient verbalized understanding. Protocol for discontinuation/continuation of medications surrounding procedure discussed. All questions answered. I have spent greater than 30 minutes on patient care today. Dr Pascual was available by phone for the evaluation of this patient. The time was used to review the medical records including relevant urine studies and Prescription history (MAPs), review of the available imaging, evaluation and examination of the patient, coordination of care with the medical staff and if applicable referring physicians, as well as creation of the medical record PQRS Narrative: Hx Alcohol Use (MH) No: ALCOHOL FREE FOR 1 YEAR Home Medications: Ambulatory Orders Atorvastatin Calcium [Lipitor] 10 mg PO HS 08/10/21 Naltrexone HCl [Revia] 50 mg PO HS 08/10/21 Ergocalciferol [Vitamin D2 (1250 Mcg = 54791 Iu)] 1 cap PO HS 04/08/23 Folic Acid 1 mg PO HS 04/08/23 Insulin Aspart (For Pump) [NovoLOG (For Pump)] 0 - 30 units SQ ACHS PRN 04/08/23 Insulin Aspart (For Pump) [NovoLOG (For Pump)] 0.9 units SQ-PUMP CONTINUOUS 04/08/23 Lisinopril-Hctz 10-12.5 mg [Zestoretic 10-12.5] 1 tab PO HS 04/08/23 amLODIPine [Norvasc] 10 mg PO HS 04/08/23 Ammonium Lactate Cream [Lac-Hydrin 12% Cream] 1 applic TOPICAL DIRECTED PRN 05/13/23 Insulin Glargine [Lantus Vial] 0 unit SQ DIRECTED PRN 05/13/23 Silver Sulfadiazine [Silver Sulfadiazine 1%] 1 applic TOPICAL DIRECTED PRN 05/13/23 Controlled Substance Measures - Controlled Substance Measures Is patient prescribed a controlled substance at discharge?: No
== END ==
LOC: PNWHC3 09:14
PROVIDERS: ATTEND Specialist
DX: M50.323 Other cervical disc degeneration at C6-C7 level (principal); M47.812 Spondylosis without myelopathy or radiculopathy, cervical region; G89.29 Other chronic pain; Z88.8 Allergy status to other drugs, medicaments and biological substances
CPT/HCPCS: 99211

== ENCOUNTER → 2023-09-29 | Day surgery (SDC) | payer OTHER ==
[2023-09-27 09:10] VITALS: BMI 26.3
[~2023-09-29] MED LIST changes: +DEXAMETHASONE SOD PHOSPHATE 10 MG/ML 1 ML VIAL ONE; +IOPAMIDOL M300 15ML VIAL ONE; +ROPIVACAINE 5MG/ML 20ML VIAL ONE
[2023-09-29 11:56] LABS: Glucose,Whole Blood 220 mg/dL (70-110)
[2023-09-29 12:06] VITALS: RESP 18
--- NOTE | 2023-09-29 13:03 | P.PCN ---
Description of Procedure: PROCEDURE 1. Injection of radio contrast material into cervical epidural space, cervical epidurogram, interpretation of cervical epidurogram, Cervical epidural steroid injection under fluoroscopic guidance, C6-7 (fluoroscopy images available in the radiology department ) 2. Cervical epidurogram. PREOPERATIVE DIAGNOSIS: 1- Cervical Degenerative Disc Diseases 2- Cervical radiculopathy., 3-cervical spondylosis with cervical Facet arthropathy without myelopathy.4-cervical spinal stenosis POSTOPERATIVE DIAGNOSIS: : 1- Cervical Degenerative Disc Diseases , 2- Cervical radiculopathy. 3-,cervical spondylosis with cervical Facet arthropathy without myelopathy. 4-cervical spinal stenosis ANESTHESIA: Local anesthetics infiltration. In the OR continuous pulse ox, EKG, blood pressure and verbal communication was maintained. EBL : None PROCEDURE INDICATION: The patient with neck pain and radiculitis unresponsive to conservative treatment consents for procedure. Discussed the procedure, alternatives and possible complications which may include increased pain, infection, bleeding, nerve damage, paralysis all of which could be permanent. Patient understands and all questions were answered. PROCEDURE DESCRIPTION : After getting consent patient was taken to the OR , positioned in prone position and time out was completed. A pillow was placed under the patients chest to increase the cervical interlaminar space. The cervical area was prepped and draped in the usual sterile fashion. Using anterior-posterior fluoroscopy, interlaminar space was identified and the skin over this site was marked and then infiltrated with 1% lidocaine subcutaneously. Subsequently, a 20-gauge 3-1/2-inch Tuohy epidural needle was inserted and advanced toward the epidural space with the loss of resistance technique using a syringe filled with preservative-free normal saline and guided by AP and lateral fluoroscopy. Negative CSF, negative blood, negative paresthesia. The correct needle position in the epidural space was verified with the injection of 2 mL of the water soluble contrast dye [id number] and observing an excellent epidurogram with the epidural spread of the dye, after repeat negative aspiration 3 mL solution was injected which consists of 1 mL of preservative-free normal saline mixed with 2 mL of 20 mg dexamethasone and a washout of epidurogram was seen. Needle was withdrawn intact, skin was cleansed, and bandages were applied. Disposition: Patient tolerated the procedure well. No complication. Patient was placed in supine position and transferred to the recovery room area in stable condition and there was no evidence of upper or lower extremity motor or sensory deficit after the procedure patient was discharged from recovery room after discharge criteria met and home discharge instructions was given by the staff and patient will follow with the pain clinic in 2-4 weeks
--- NOTE | 2023-09-29 13:07 | FL ---
Fluoroscopy History: M54.12 CERVICAL RADICULOPATHY Fl time 14.6 sec DAP .[id number]
[2023-09-29 13:19] VITALS: BP 155/86; PULSE 90
== END ==
LOC: ORPAIN 09:35
PROVIDERS: ATTEND Pain Medicine Interventional Pain Medicine
DX: M47.22 Other spondylosis with radiculopathy, cervical region (principal); M48.02 Spinal stenosis, cervical region; M50.123 Cervical disc disorder at C6-C7 level with radiculopathy; Z88.6 Allergy status to analgesic agent; Z88.8 Allergy status to other drugs, medicaments and biological substances; Z79.4 Long term (current) use of insulin
CPT/HCPCS: 62321

== ENCOUNTER → 2023-10-24 | Outpatient (CLI) | payer OTHER ==
[2023-10-24 14:52] VITALS: BP 136/84; PULSE 105; RESP 16; TEMP 98
--- NOTE | 2023-10-24 15:12 | P.PAINPG ---
PQRS Measure Charge Sheet Comment: HISTORY OF PRESENT ILLNESS: A 58 yr old male presents today w severe and chronic neck pain x 3 mo secondary to DDD, spondylosis and facet arthropathy without myelopathy for evaluation s/p ELSIE C6-C7 #3. Pt states he experienced 65 % pain relief x 3 wks s/p procedure. Pt states pain level is provoked at 6 /10 in intensity, constant, localized in the lower cervical spine, predominantly axial, achy in character w occasional shooting pain towards BL shoulders. Pain is provoked by sitting upright for periods > 15 min. Pain is alleviated by PT x 4 wks which he is currently in, heat, medications, topical, sitting, repositioning and rest. Cervical disability score of 23. Interventional procedures include ELSIE C6-C7 x3 Medications include Tyl, Naproxen REVIEW OF ORGAN SYSTEMS: CONSTITUTIONAL: No fevers or chills. No recent weight loss. NEUROLOGICAL: + numbness and tingling along the distal extremities. No seizure disorders or headaches. MUSCULOSKELETAL: + pain PSYCHIATRIC: Denies current depression or suicidal th oughts. Physical Examinations : Constitutional : Cooperative , not in acute distress . Neurologic : Cranial nerve II to XII intact. No focal neurological deficits. Psychiatric : alert & oriented x 3. Matching mood & appropriate affect. Judgment & insight intact. Musculoskeletal : Cervical Spine Motor strength in the deltoid and biceps: Normal right side. Normal Left side Motor strength biceps and the wrist extensors: Normal right side . Normal left side Motor strength in the triceps muscle: Normal right side. Normal left side Deep tendon reflexes: Normal at the biceps. Normal at Brachioradialis. Normal at triceps Vertebral body tenderness to deep palpation Cervical facet loading test: positive bilaterally C4-C5, C5-C6 Spurling test: positive Neck distraction test: positive bilaterally Shawn sign: positive bilaterally Lumbar spine Motor strength lower extremities ,thigh and legs 5/5 Right side , 5/5 Left side Deep tendon reflexes : Normal Knee Jerk. Normal Ankle Jerk Vertebral body tenderness over Rodriguez Test positive Lumbar facet Loading Test: positive Right / positive Left Range of motion of the lumbar spine Flexion 30 degrees, extension 10 degrees Straight Leg Raise test: Left/ Right positive at degree Katina test: positive right / positive left. Severe tenderness over the Sacroiliac j oint on the Right / Left sides Gaenslen test: positive bilaterally Seated flexion test: positive bilaterally. Sacral spine : Severe tenderness over the Sacroiliac joint: right side / left side Range of motion: Flexion of the lumbar spine <60 degrees Range of motion: Extension of the lumbar spine <20 degrees Gaenslen's Test positive Scotty's Test positive Katina test: positive right side / left side Thigh Thrust Test Sacral Thrust Test Imaging: X-rays cervical spine from 02/02/22 reviewed MRI non contrast of the cervical spine from 02/02/23 reviewed Assessment/ Plan : Cervical DDD Recommendation of BL MBB C4-C5/ C5-C6 #1. May need a series of injections, up until RFA, for optimal pain relief. Risks, benefits of procedure discussed and patient verbalized understanding. Protocol for discontinuation/continuation of medications surrounding procedure discussed. Minimal anesthesia including Fentanyl and Versed if clinically indicated. All questions answered. I have spent greater than 30 minutes on patient care today. Dr Pascual was available by phone for the evaluation of this patient. The time was used to review the medical records including relevant urine studies and Prescription history (MAPs), review of the available imaging, evaluation and examination of the patient, coordination of care with the medical staff and if applicable referring physicians, as well as creation of the medical record PQRS Narrative: Hx Alcohol Use (MH) No: ALCOHOL FREE FOR 1 YEAR Home Medications: Ambulatory Orders Atorvastatin Calcium [Lipitor] 10 mg PO HS 08/10/21 Naltrexone HCl [Revia] 50 mg PO HS 08/10/21 Folic Acid 1 mg PO HS 04/08/23 Insulin Aspart (For Pump) [NovoLOG (For Pump)] 0 - 30 units SQ ACHS PRN 04/08/23 Insulin Aspart (For Pump) [NovoLOG (For Pump)] 0.9 units SQ-PUMP CONTINUOUS 04/08/23 Lisinopril-Hctz 10-12.5 mg [Zestoretic 10-12.5] 1 tab PO HS 04/08/23 amLODIPine [Norvasc] 10 mg PO HS 04/08/23 Insulin Glargine [Lantus Vial] 30 unit SQ QAM PRN 05/13/23 Cholecalciferol [Vitamin D3 (125 Mcg = 5000 Iu)] 125 mcg PO HS 09/27/23 Primidone 50 mg PO HS 09/27/23 lamoTRIgine [LaMICtal] 100 mg PO BID 09/27/23 Controlled Substance Measures - Controlled Substance Measures Is patient prescribed a controlled substance at discharge?: No
== END ==
LOC: PNWHC3 13:40
PROVIDERS: ATTEND Specialist
DX: M50.321 Other cervical disc degeneration at C4-C5 level (principal); M50.322 Other cervical disc degeneration at C5-C6 level; Z88.8 Allergy status to other drugs, medicaments and biological substances
CPT/HCPCS: 99211

== ENCOUNTER 2023-12-20 08:12 | Day surgery (SDC) | payer OTHER ==
[2023-12-19 12:45] VITALS: BMI 26.4
[2023-12-20 08:36] VITALS: RESP 16; TEMP 97.4
[2023-12-20 08:42] LABS: Glucose,Whole Blood 138 mg/dL (70-110)
[2023-12-20] MEDS: IV FLUID CONTINUATION 1,000 ML IV ONE ×2 (08:50→09:37)
[2023-12-20] MEDS: LACTATED RINGERS 1,000 ML IV SCH (08:50)
[2023-12-20] MEDS ORDERED: fentaNYL (PF) 50 MCG/ML 2 ML AMP ONE (09:03)
[2023-12-20] MEDS ORDERED: MIDAZOLAM 2 MG/2 ML VIAL ONE (09:03)
[2023-12-20] MEDS ORDERED: ROPIVACAINE 5MG/ML 20ML VIAL ONE (09:03)
[2023-12-20 09:40] VITALS: PULSE 78
--- NOTE | 2023-12-20 09:42 | P.PCN ---
Description of Procedure: Preprocedure diagnosis. Cervical facet joint arthropathy, cervical spine spondylosis, cervical degenerative disc disease. Postprocedure diagnosis. As above. Procedure done. Bilateral C4-5, C5-6 facet joint (C4, C5, C6 medial branch of dorsal ramus) diagnostic injection with local anesthetics under fluoroscopic guidance. Anesthesia. IV sedation of Versed 2milligram, fentanyl 50 micrograms give in OR. Continuous pulse ox, EKG, blood pressure and verbal communication was maintained with the patient in OR. 0903 to 0928 AM Blood loss. None. Indication. Patient has got the diagnoses of cervical spondylolysis, facet joint arthropathy with neck pain. Discussed with the patient procedure, alternatives, complications including infection, bleeding, nerve damage, paralysis all of which could be permanent. Patient understands and all questions are answered. Procedure note. After getting consent patient in OR in prone position. Back of the neck was prepped with chlorhexidine and draped in sterile fashion. After injecting 3 mL of plain 1% lidocaine subcutaneously, a 22-gauge spinal needle was introduced under tunnel vision of the fluoroscope AP view at the waist of the articular pillar (lateral mass) at C4 vertebral level. In the lateral view of the fluoroscope it was confirmed that the tip of the needle stayed within the dorsal half of the articular pillar (lateral mass). So, right C4-5 facet joint was targeted by blocking right C4 and C5 medial branch, right C5-6 facet joint was targeted by blocking right C5 and C6 medial branch. In exactly the same way , after subcutaneous injection of lidocaine, 22-gauge spinal needles were introduced under tunnel vision of the fluoroscope AP view at the waist of the articular pillars (lateral mass) at C5 and C6 vertebral level. In the lateral view of the fluoroscope it was confirmed that the tip of the needle stayed within the dorsal half of the articular pillar (lateral mass). At each needle, 0.5 mL of 0.5% ropivacaine preservative-free was injected. In exactly same way left C4-5, C5-6 facet joints were targeted by blocking left C4, C5, C6 medial branch of dorsal ramus. After the procedure needle was taken out and bandage was applied. Disposition. Patient tolerated the procedure well. No complication. Discharged home in stable condition.
--- NOTE | 2023-12-20 09:43 | FL ---
Fluoroscopy History: FACET BLOCK fl 43.5 dap [id number] cervical facet rosey
[2023-12-20 09:53] VITALS: BP 126/86
== END 2023-12-20 10:09 | disposition home or self-care (01) ==
LOC: ORPAIN 08:12
PROVIDERS: ATTEND Pain Medicine Interventional Pain Medicine
DX: M47.812 Spondylosis without myelopathy or radiculopathy, cervical region (principal); M50.322 Other cervical disc degeneration at C5-C6 level; E11.9 Type 2 diabetes mellitus without complications; Z79.899 Other long term (current) drug therapy; Z88.8 Allergy status to other drugs, medicaments and biological substances; Z88.6 Allergy status to analgesic agent
CPT/HCPCS: 99152; 99153

== ENCOUNTER 2024-07-15 20:51 | Observation (INO) | payer OTHER ==
--- NOTE | 2024-07-15 20:58 | ED ---
Nausea/Vomiting/Diarrhea HPI - General Stated complaint: Nausea/Vomiting Time Seen by Provider: 07/15/24 20:55 Source: RN notes reviewed, old records reviewed Mode of arrival: EMS Limitations: no limitations - History of Present Illness Initial comments: This is a 59 male to the ER for evaluation, patient presents with severe nausea vomiting and abdominal pain. Intractable nausea vomiting abdominal pain. History of alcohol abuse. History of recurrent evaluation of similar concerns with intractable vomiting. Patient is cannot keep anything down and feels very weak weak on his feet. And persistent retching and vomiting bilious vomiting patient states he does have history of a stomach ulcer no history of cirrhosis MD complaint: nausea, vomiting, abdominal pain -: days(s) Description of Vomiting: food contents, watery, bilious Associated Abdominal Pain: Yes Location: diffuse Severity: moderate Severity scale (1-10): 4 Quality: stabbing, aching Consistency: constant Improves with: none Worsens with: none Associated Symptoms: loss of appetite, nausea/vomiting, weakness - Related Data Home Medications Medication Instructions Recorded Confirmed Atorvastatin Calcium [Lipitor] 10 mg PO HS 08/10/21 07/16/24 Naltrexone HCl [Revia] 50 mg PO HS 08/10/21 07/16/24 Folic Acid 1 mg PO HS 04/08/23 07/16/24 Lisinopril-Hctz 10-12.5 mg 1 tab PO HS 04/08/23 07/16/24 [Zestoretic 10-12.5] Cholecalciferol [Vitamin D3 (125 125 mcg PO HS 09/27/23 07/16/24 Mcg = 5000 Iu)] lamoTRIgine [LaMICtal] 100 mg PO BID 09/27/23 07/16/24 Azelastine HCl [Optivar 0.05% 2 drop BOTH EYES DAILY 07/16/24 07/16/24 Ophth Soln] INSULIN LISPRO (For Pump) [humaLOG 0.01 units SQ-PUMP CONTINUOUS 07/16/24 07/16/24 (For Pump)] Vitamin E (Dl,Tocopheryl Acet) 400 unit PO HS 07/16/24 07/16/24 [Vitamin E (400 Iu = 180 mg)] lamoTRIgine [LaMICtal] 25 mg PO BID 07/16/24 07/16/24 Previous Rx's Medication Instructions Recorded Acetaminophen Tab [Tylenol] 650 mg PO Q6HR PRN tab 07/17/24 Ondansetron Odt [Zofran Odt] 4 mg PO Q8HR PRN #20 tab 07/17/24 Pantoprazole [Protonix] 40 mg PO DAILY #30 tab 07/17/24 Allergies Allergy/AdvReac Type Severity Reaction Status Date / Time divalproex sodium Allergy headache,abd. Verified 07/16/24 08:32 [From Depakote] pain, N/V/diarrhea,tinnitus gadoteridol [From Prohance] AdvReac Nausea & Verified 07/16/24 08:32 Vomiting Review of Systems ROS Statement: Those systems with pertinent positive or pertinent negative responses have been documented in the HPI. ROS Other: All systems not noted in ROS Statement are negative. Past Medical History Past Medical History: Diabetes Mellitus, GERD/Reflux, Hyperlipidemia, Hypertension, Osteoarthritis (OA), Seizure Disorder Additional Past Medical History / Comment(s): Alcoholism - none x 16 mos., "bleeding ulcer" x 2 in 2022, tremors - worse when tired or agitated, NEW ONSET SEIZURE DISORDER-last seizure 05-05-23, dry skin lower legs, behind ears History of Any Multi-Drug Resistant Organisms: None Reported Past Surgical History: Adenoidectomy, Cholecystectomy, Orthopedic Surgery, Tonsillectomy Additional Past Surgical History / Comment(s): Left ankle surgery, RK ,cholecystectomy 2022 Past Anesthesia/Blood Transfusion Reactions: No Reported Reaction Additional Past Anesthesia/Blood Transfusion Reaction / Comment(s): states he metabolizes "local" anesthetic very quickly and is very concerned about how this will affect his procedure Smoking Status: Never smoker - Past Family History Mother Family Medical History: Congestive Heart Failure (CHF) Father Family Medical History: Cancer, CVA/TIA Additional Family Medical History / Comment(s): CVA X2, . General Exam General appearance: alert, in no apparent distress Head exam: Present: atraumatic, normocephalic, normal inspection Eye exam: Present: normal appearance, PERRL, EOMI. Absent: scleral icterus, conjunctival injection, periorbital swelling ENT exam: Present: normal exam, mucous membranes moist Neck exam: Present: normal inspection. Absent: tenderness, meningismus, lymphadenopathy Respiratory exam: Present: normal lung sounds bilaterally. Absent: respiratory distress, wheezes, rales, rhonchi, stridor Cardiovascular Exam: Present: regular rate, normal rhythm, normal heart sounds. Absent: systolic murmur, diastolic murmur, rubs, gallop, clicks GI/Abdominal exam: Present: soft, normal bowel sounds. Absent: distended, tenderness, guarding, rebound, rigid Extremities exam: Present: normal inspection, full ROM, normal capillary refill. Absent: tenderness, pedal edema, joint swelling, calf tenderness Back exam: Present: normal inspection Neurological exam: Present: alert, oriented X3, CN II-XII intact Psychiatric exam: Present: normal affect, normal mood Skin exam: Present: warm, dry, intact, normal color. Absent: rash Course Vital Signs 07/15/24 07/15/24 07/15/24 20:52 22:17 23:20 Temperature 98.8 F Pulse Rate 101 H 93 Pulse Rate [ Sitting Pulse Oximetery] Pulse Rate [ Standing Pulse Oximetery] Pulse Rate [ Supine Pulse Oximetery] Respiratory 18 20 Rate Blood Pressure 191/102 148/90 170/103 Blood Pressure [Right Arm Sitting] Blood Pressure [Right Arm Standing] Blood Pressure [Right Arm Supine] O2 Sat by Pulse 99 95 Oximetry 07/16/24 07/16/24 07/16/24 00:07 01:48 06:34 Temperature 100.1 F H Pulse Rate 96 94 97 Pulse Rate [ Sitting Pulse Oximetery] Pulse Rate [ Standing Pulse Oximetery] Pulse Rate [ Supine Pulse Oximetery] Respiratory 22 20 18 Rate Blood Pressure 148/86 135/85 102/70 Blood Pressure [Right Arm Sitting] Blood Pressure [Right Arm Standing] Blood Pressure [Right Arm Supine] O2 Sat by Pulse 95 96 95 Oximetry 07/16/24 07/16/24 07/16/24 07:36 11:43 13:41 Temperature 98.0 F Pulse Rate 95 Pulse Rate [ 97 Sitting Pulse Oximetery] Pulse Rate [ 102 H Standing Pulse Oximetery] Pulse Rate [ 91 Supine Pulse Oximetery] Respiratory 20 Rate Blood Pressure 123/77 Blood Pressure 139/97 [Right Arm Sitting] Blood Pressure 126/93 [Right Arm Standing] Blood Pressure 147/93 [Right Arm Supine] O2 Sat by Pulse 97 Oximetry - Reevaluation(s) Reevaluation #1: 07/15/24 23:56 Medical records reviewed Reevaluation #2: 07/15/24 23:57 Patient symptoms unchanged Difficult to control vomiting with consistent and persistent active vomiting here in the ER After multiple retching events patient does appear to have little bit of blood in his vomit, not bright red blood suspected Yina-Simmons Patient has history of gastric ulcer no history of esophageal varices or cirrh osis Reevaluation #3: 07/15/24 23:57 Patient informed of results questions answered Reevaluation #4: Was pt. sent in by a medical professional or institution (EVETTE Jarrell, SERVICE ASSISTANT, urgent care, hospital, or senior care...) When possible be specific @ -no Did you speak to anyone other than the patient for history (EMS, parent, family, police, friend...)? What history was obtained from this source @ -no Did you review nursing and triage notes (agree or disagree)? Why? @ -agree Are old charts reviewed (outside hosp., previous admission, EMS record, old EKG, old radiological studies, urgent care reports/EKG's, senior care records)? Report findings @ -yes Differential Diagnosis (chest pain, altered mental status, abdominal pain women, abdominal pain men, vaginal bleeding, weakness, fever, dyspnea, syncope, headache, dizziness, GI bleed, back pain, seizure, CVA, palpatations, mental health, musculoskeletal)? @ -prior EKG interpreted by me (3pts min.). @ -yes X-rays interpreted by me (1pt min.). @ -no CT interpreted by me (1pt min.). @ -yes negative for acute disease U/S interpreted by me (1pt. min.). @ -no What testing was considered but not performed or refused? (CT, X-rays, U/S, labs)? Why? @ -none What meds were considered but not given or refused? Why? @ -none Did you discuss the management of the patient with other professionals (professionals i.e. EVETTE Jarrell, SERVICE ASSISTANT, lab, RT, psych nurse, social work job titles, senior quantity surveyor, teacher, senior administrative services officer, transplant case manager)? Give summary @ -no Was smoking cessation discussed for >3mins.? @ -no Was critical care preformed (if so, how long)? @ -no Were there social determinants of health that impacted care today? How? (Homelessness, low income, unemployed, alcoholism, drug addiction, alarcon sportation, low edu. Level, literacy, decrease access to med. care, snf, rehab)? @ -none Was there de-escalation of care discussed even if they declined (Discuss DNR or withdrawal of care, Hospice)? DNR status @ -no What co-morbidities impacted this encounter? (DM, HTN, Smoking, COPD, CAD, Cancer, CVA, ARF, Chemo, Hep., AIDS, mental health diagnosis, sleep apnea, morbid obesity)? @ -none Was patient admitted / discharged? Hospital course, mention meds given and route, prescriptions, significant lab abnormalities, going to OR and other pertinent info. @ - 59 male to the ER with intractable nausea vomiting history of stomach ulcer history of remote history of alcoholism with months sober. Patient comes in with persistent nausea vomiting here in the ER and will admit for symptomatic management Admitted Undiagnosed new problem with uncertain prognosis? @ -no Drug Therapy requiring intensive monitoring for toxicity (Heparin, Nitro, Insulin, Cardizem)? @ -no Were any procedures done? @ -no Diagnosis/symptom? @ -Nausea and vomiting Acute, or Chronic, or Acute on Chronic? @ -Acute Uncomplicated (without systemic symptoms) or Complicated (systemic symptoms)? @ -Complicated Side effects of treatment? @ -no Exacerbation, Progression, or Severe Exacerbation? @ -exacerbation Poses a threat to life or bodily function? How? (Chest pain, USA, MS, pneumonia, PE, COPD, DKA, ARF, appy, cholecystitis, CVA, Diverticulitis, Homicidal, Suicidal, threat to staff... and all critical care pts) @ -no - Consultations Consultation #1: spoke with yessi who agrees to admit this patient Medical Decision Making - Medical Decision Making 59 male to the ER with intractable nausea vomiting history of stomach ulcer history of remote history of alcoholism with months sober. Patient comes in with persistent nausea vomiting here in the ER and will admit for symptomatic management - Lab Data Result diagrams: 07/17/24 04:23 07/17/24 04:23 Lab Results 07/15/24 07/15/24 Range/Units 21:50 21:50 WBC 7.3 (3.8-10.6) k/uL RBC 5.51 (4.30-5.90) m/uL Hgb 16.5 (13.0-17.5) gm/dL Hct 50.9 (39.0-53.0) % MCV 92.4 (80.0-100.0) fL MCH 29.9 (25.0-35.0) pg MCHC 32.4 (31.0-37.0) g/dL RDW 13.3 (11.5-15.5) % Plt Count 331 (150-450) k/uL MPV 7.8 Neutrophils % 72 % Lymphocytes % 15 % Monocytes % 10 % Eosinophils % 0 % Basophils % 1 % Neutrophils # 5.3 (1.3-7.7) k/uL Lymphocytes # 1.1 (1.0-4.8) k/uL Monocytes # 0.8 (0-1.0) k/uL Eosinophils # 0.0 (0-0.7) k/uL Basophils # 0.1 (0-0.2) k/uL Sodium 135 L (137-145) mmol/L Potassium 4.3 (3.5-5.1) mmol/L Chloride 94 L (98-107) mmol/L Carbon Dioxide 27 (22-30) mmol/L Anion Gap 14 mmol/L BUN 11 (9-20) mg/dL Creatinine 1.28 H (0.66-1.25) mg/dL Est GFR (CKD-EPI)AfAm 70 (>60 ml/min/1.73 sqM) Est GFR (CKD-EPI)NonAf 61 (>60 ml/min/1.73 sqM) Glucose 140 H (74-99) mg/dL Calcium 10.5 H (8.4-10.2) mg/dL Phosphorus 2.4 L (2.5-4.5) mg/dL Magnesium 1.9 (1.6-2.3) mg/dL Total Bilirubin 2.0 H (0.2-1.3) mg/dL AST 72 H (17-59) U/L ALT 46 (4-49) U/L Alkaline Phosphatase 160 H (38-126) U/L Total Protein 8.5 H (6.3-8.2) g/dL Albumin 5.1 H (3.5-5.0) g/dL Lipase 33 (23-300) U/L Serum Alcohol <10 mg/dL - Radiology Data Radiology results: report reviewed (CT of the abdomen pelvis negative for acute disease), image reviewed Disposition Clinical Impression: Atypical chest pain, Dehydration, Gastroenteritis, Nausea & vomiting Disposition: ADMITTED IP TO THIS HOSP Condition: Fair Is patient prescribed a controlled substance at d/c from ED?: No Time of Disposition: 23:55
[2024-07-15] MEDS ORDERED: LORazepam 1 MG TAB PO PRN (21:34)
[2024-07-15] MEDS ORDERED: LORazepam 2 MG/ML INJ IV PRN ×2 (21:34)
[2024-07-15] MEDS: ONDANSETRON 4 MG/2 ML VIAL IVP STA (21:42)
[2024-07-15] MEDS: SODIUM CHLORIDE 0.9% 1,000 ML IV STA (21:43)
[2024-07-15] MEDS: LORazepam 2 MG/ML INJ IV STA (21:43)
[2024-07-15] MEDS: PANTOPRAZOLE 40 MG/10 ML VIAL IVP STA (21:43)
[2024-07-15 22:01] LABS: Basophils # (A) 0.1 k/uL (0-0.2); Basophils % (A) 1 %; Eosinophils % (A) 0 %; HCT 50.9 % (39.0-53.0); HGB 16.5 gm/dL (13.0-17.5); Lymphocytes # (A) 1.1 k/uL (1.0-4.8); Lymphocytes % (A) 15 %; MCH 29.9 pg (25.0-35.0); MCHC 32.4 g/dL (31.0-37.0); MCV 92.4 fL (80.0-100.0); Mean Platelet Volume 7.8; Monocytes # (A) 0.8 k/uL (0-1.0); Monocytes % (A) 10 %; Neutrophils # (A) 5.3 k/uL (1.3-7.7); Neutrophils % (A) 72 %; Platelet Count 331 k/uL (150-450); RBC 5.51 m/uL (4.30-5.90); RDW 13.3 % (11.5-15.5); WBC 7.3 k/uL (3.8-10.6)
[2024-07-15 22:12] LABS: ALT 46 U/L (4-49); AST 72 U/L (17-59); African American GFR (CKD) 70 (>60 ml/min/1.73 sqM); Albumin 5.1 g/dL (3.5-5.0); Alcohol <10 mg/dL; Alkaline Phosphatase 160 U/L (38-126); Anion Gap 14 mmol/L; Blood Urea Nitrogen 11 mg/dL (9-20); Calcium 10.5 mg/dL (8.4-10.2); Carbon Dioxide 27 mmol/L (22-30); Chloride 94 mmol/L (98-107); Glucose 140 mg/dL (74-99); Lipase 33 U/L (23-300); Magnesium 1.9 mg/dL (1.6-2.3); Non-African American GFR(CKD) 61 (>60 ml/min/1.73 sqM); Phosphorus 2.4 mg/dL (2.5-4.5); Potassium 4.3 mmol/L (3.5-5.1); Sodium 135 mmol/L (137-145); Total Protein 8.5 g/dL (6.3-8.2)
[2024-07-15] MEDS ORDERED: NALOXONE 0.4 MG/ML 1 ML VIAL IV PRN (23:59)
[2024-07-15] MEDS: droPERidol 5 MG/2 ML VIAL IVP ONE (23:59)
--- NOTE | 2024-07-16 00:36 | CT ---
EXAM: CT Abdomen and Pelvis With Intravenous Contrast CLINICAL HISTORY: ITS.REASON CT Reason: pain TECHNIQUE: Axial computed tomography images of the abdomen and pelvis with intravenous contrast. CTDI is 26.4 mGy and DLP is 1140.1 mGy-cm. This CT exam was performed using one or more of the following dose reduction techniques: automated exposure control, adjustment of the mA and/or kV according to patient size, and/or use of iterative reconstruction technique. COMPARISON: 08/27/2021 FINDINGS: Lung bases: Unremarkable. No mass. No consolidation. ABDOMEN: Liver: Hepatic steatosis. Gallbladder and bile ducts: Unremarkable. No calcified stones. No ductal dilation. Pancreas: Unremarkable. No mass. No ductal dilation. Spleen: Unremarkable. No splenomegaly. Adrenals: Unremarkable. No mass. Kidneys and ureters: Unremarkable. No solid mass. No hydronephrosis. Stomach and bowel: Diverticulosis without evidence of diverticulitis. No obstruction. PELVIS: Appendix: No findings to suggest acute appendicitis. Bladder: Unremarkable. No mass. Reproductive: Unremarkable as visualized. ABDOMEN and PELVIS: Intraperitoneal space: Unremarkable. No free air. No significant fluid collection. Bones/joints: No acute fracture. No dislocation. Soft tissues: Fat-containing left anterior abdominal wall hernia. Vasculature: Unremarkable. No abdominal aortic aneurysm. Lymph nodes: Unremarkable. No enlarged lymph nodes. IMPRESSION: No acute findings in the abdomen or pelvis.
[2024-07-16] MEDS: LORazepam 2 MG/ML INJ IV PRN (01:57)
[2024-07-16] MEDS: ONDANSETRON 4 MG/2 ML VIAL IVP PRN (01:57)
--- NOTE | 2024-07-16 04:05 | P.HPIM ---
History of Present Illness H&P Date: 07/16/24 Chief Complaint: Nausea and Vomiting The patient is a 59-year-old male with a history of ex alcohol use. The patient presented with multiple episodes of nausea vomiting and abdominal pain. He denied any diarrhea. He states the vomitus was bilious in nature. The patient denies any sick contacts. He continues to have multiple episodes of emesis and states he had epigastric chest pain and burning. The patient states his pain was not associated with any shortness of breath. The patient is seen in the emergency room he had a CT scan of the abdomen pelvis which was negative for any acute infection. The patient had some blood tinged emesis. He was hospitalized for further workup and management. Review of Systems Negative other than stated above Past Medical History Past Medical History: Diabetes Mellitus, GERD/Reflux, Hyperlipidemia, Hypertension, Osteoarthritis (OA), Seizure Disorder Additional Past Medical History / Comment(s): Alcoholism - none x 16 mos., "bleeding ulcer" x 2 in 2022, tremors - worse when tired or agitated, NEW ONSET SEIZURE DISORDER-last seizure 05-05-23, dry skin lower legs, behind ears History of Any Multi-Drug Resistant Organisms: None Reported Past Surgical History: Adenoidectomy, Cholecystectomy, Orthopedic Surgery, Tonsillectomy Additional Past Surgical History / Comment(s): Left ankle surgery, RK ,cholecystectomy 2022 Past Anesthesia/Blood Transfusion Reactions: No Reported Reaction Additional Past Anesthesia/Blood Transfusion Reaction / Comment(s): states he metabolizes "local" anesthetic very quickly and is very concerned about how this will affect his procedure Smoking Status: Never smoker - Past Family History Mother Family Medical History: Congestive Heart Failure (CHF) Father Family Medical History: Cancer, CVA/TIA Additional Family Medical History / Comment(s): CVA X2, . Medications and Allergies Home Medications Medication Instructions Recorded Confirmed Type Atorvastatin Calcium [Lipitor] 10 mg PO HS 08/10/21 12/19/23 History Naltrexone HCl [Revia] 50 mg PO HS 08/10/21 12/19/23 History Folic Acid 1 mg PO HS 04/08/23 12/19/23 History Insulin Aspart (For Pump) [NovoLOG 0 - 30 units SQ ACHS PRN 04/08/23 12/20/23 History (For Pump)] Insulin Aspart (For Pump) [NovoLOG 1.1 units SQ-PUMP CONTINUOUS 04/08/23 12/20/23 History (For Pump)] Lisinopril-Hctz 10-12.5 mg 1 tab PO HS 04/08/23 12/19/23 History [Zestoretic 10-12.5] amLODIPine [Norvasc] 10 mg PO HS 04/08/23 12/19/23 History Insulin Glargine (Lantus) [Lantus 30 unit SQ QAM PRN 05/13/23 12/20/23 History Vial] Cholecalciferol [Vitamin D3 (125 125 mcg PO HS 09/27/23 12/19/23 History Mcg = 5000 Iu)] Primidone 50 mg PO HS 09/27/23 12/19/23 History lamoTRIgine [LaMICtal] 100 mg PO BID-W/MEALS 09/27/23 12/19/23 History Antihistimine Eye Drop 1 drop BOTH EYES DAILY 12/19/23 History Aspirin EC [Ecotrin Low Dose] 81 mg PO DAILY 12/19/23 12/20/23 History hydrOXYzine pamoate 25 mg PO HS 12/19/23 12/19/23 History Allergies Allergy/AdvReac Type Severity Reaction Status Date / Time divalproex sodium Allergy headache,abd. Verified 12/20/23 08:41 [From Depakote] pain, N/V/diarrhea,tinnitus gadoteridol [From Prohance] AdvReac Nausea & Verified 12/20/23 08:41 Vomiting Physical Exam Vitals: Vital Signs Temp Pulse Resp BP Pulse Ox 07/16/24 01:48 100.1 F H 94 20 135/85 96 07/16/24 00:07 96 22 148/86 95 07/15/24 23:20 93 20 170/103 95 07/15/24 22:17 148/90 07/15/24 20:52 98.8 F 101 H 18 191/102 99 Intake and Output 07/15/24 07/15/24 07/16/24 14:59 22:59 06:59 Other: Voiding Method Toilet Weight 101.605 kg - Constitutional General appearance: average body habitus - Respiratory Respiratory: bilateral: CTA - Cardiovascular Rhythm: regular - Gastrointestinal General gastrointestinal: normal bowel sounds - Integumentary Integumentary: normal - Psychiatric Psychiatric: A&O x's 3, appropriate affect Results CBC & Chem 7: 07/15/24 21:50 07/15/24 21:50 Labs: Abnormal Lab Results - Last 24 Hours (Table) 07/15/24 Range/Units 21:50 Sodium 135 L (137-145) mmol/L Chloride 94 L (98-107) mmol/L Creatinine 1.28 H (0.66-1.25) mg/dL Glucose 140 H (74-99) mg/dL Calcium 10.5 H (8.4-10.2) mg/dL Phosphorus 2.4 L (2.5-4.5) mg/dL Total Bilirubin 2.0 H (0.2-1.3) mg/dL AST 72 H (17-59) U/L Alkaline Phosphatase 160 H (38-126) U/L Total Protein 8.5 H (6.3-8.2) g/dL Albumin 5.1 H (3.5-5.0) g/dL CT scan - abdomen: report reviewed Assessment and Plan (1) Nausea & vomiting Narrative/Plan: Patient with vomiting blood streaks likely secondary Yina-Simmons tear will keep patient n.p.o., GI consult, IV fluid he does have the risk factor of pre vious alcohol use Current Visit: Yes Status: Acute Code(s): R11.2 - NAUSEA WITH VOMITING, UNSPECIFIED SNOMED Code(s): 71644661 (2) Chest pain Narrative/Plan: Epigastric in nature likely secondary to emesis we will give PPI, GI has been consulted Current Visit: No Status: Acute Code(s): R07.9 - CHEST PAIN, UNSPECIFIED SNOMED Code(s): 25238770 (3) Dehydration Narrative/Plan: With slight JAIDEN will give IV hydration and monitor Current Visit: Yes Status: Acute Code(s): E86.0 - DEHYDRATION SNOMED Code(s): 20052132 (4) Diabetes Narrative/Plan: Home regimen sliding scale coverage, monitor, patient n.p.o. closely reduce dose as needed Current Visit: Yes Status: Acute Code(s): E11.9 - TYPE 2 DIABETES MELLITUS WITHOUT COMPLICATIONS SNOMED Code(s): 00887316 (5) HTN (hypertension) Narrative/Plan: Continue outpatient regiment and titrate as needed Current Visit: Yes Status: Acute Code(s): I10 - ESSENTIAL (PRIMARY) HYPERTE NSION SNOMED Code(s): 93680555 Plan: Gastroenterology consult, keep patient n.p.o., patient controlled with IV morphine, Zofran at as needed for nausea and vomiting Tylenol as needed for fever Place in observation pending further diagnostic workup,'s sliding-scale coverage, check Accu-Cheks, home regimen
[2024-07-16] MEDS ORDERED: MORPHINE SULFATE 4 MG/ML SYRINGE IVP PRN (04:10)
[2024-07-16] MEDS: SODIUM CHLORIDE 0.9% 1,000 ML IV SCH (06:26)
[2024-07-16] MEDS: ACETAMINOPHEN TAB 325 MG TAB PO PRN (06:29)
[2024-07-16] MEDS: PANTOPRAZOLE 40 MG/10 ML VIAL IV SCH ×2 (08:05→08:42)
[2024-07-16 10:58] LABS: Basophils % (A) 0 %; Eosinophils % (A) 0 %; HCT 44.6 % (39.0-53.0); HGB 14.4 gm/dL (13.0-17.5); Lymphocytes % (A) 13 %; MCH 29.8 pg (25.0-35.0); MCHC 32.3 g/dL (31.0-37.0); MCV 92.3 fL (80.0-100.0); Mean Platelet Volume 7.6; Monocytes # (A) 0.5 k/uL (0-1.0); Monocytes % (A) 7 %; Neutrophils # (A) 5.7 k/uL (1.3-7.7); Neutrophils % (A) 78 %; Platelet Count 279 k/uL (150-450); RBC 4.83 m/uL (4.30-5.90); RDW 13.1 % (11.5-15.5); WBC 7.4 k/uL (3.8-10.6)
[2024-07-16 11:36] LABS: ALT 36 U/L (4-49); AST 41 U/L (17-59); African American GFR (CKD) 69 (>60 ml/min/1.73 sqM); Albumin 4.2 g/dL (3.5-5.0); Albumin/Globulin Ratio 1.6; Alkaline Phosphatase 109 U/L (38-126); Anion Gap 6 mmol/L; Blood Urea Nitrogen 15 mg/dL (9-20); Calcium 9.6 mg/dL (8.4-10.2); Carbon Dioxide 28 mmol/L (22-30); Chloride 101 mmol/L (98-107); Globulin 2.7 g/dL; Glucose 130 mg/dL (74-99); Magnesium 2.1 mg/dL (1.6-2.3); Non-African American GFR(CKD) 60 (>60 ml/min/1.73 sqM); Phosphorus 4.1 mg/dL (2.5-4.5); Potassium 4.1 mmol/L (3.5-5.1); Sodium 135 mmol/L (137-145); Total Bilirubin 1.7 mg/dL (0.2-1.3); Total Protein 6.9 g/dL (6.3-8.2)
--- NOTE | 2024-07-16 12:54 | P.CONS ---
History of Present Illness - Reason for Consult Consult date: 07/16/24 History of ulcer Requesting physician: Veronica Vanessa - Chief Complaint Abdominal pain, nausea and vomiting - History of Present Illness This a pleasant 59-year-old male who presented to the emergency department with complaints of abdominal pain, nausea and vomiting. Past medical history includes 30 years of alcohol abuse daily drinker up to 30 beers a day. States he quit drinking about 28 months ago. Has history of previous GI bleed in November 2022 and [place] [facility] [place] [facility] states he had an upper and endoscopy and colonoscopy. He reports having 2 ulcers. Gastroenterology was consulted for history of ulcers. Patient states pain is primarily in the epigastric region and will radiate down. He gets intermittent episodes of nausea and vomiting ever since he had his gallbladder out in 2021. He states he episodes come and go yesterday started around 4 AM he was vomiting up to 15-20 episodes. Mostly nonbilious but reports having some coffee-ground emesis. States his last time he had vomited was around midnight last night. He had a CT of the abdomen and pelvis with IV contrast reporting no acute findings in the abdomen or pelvis. Patient states he has not been taking any proton pump inhibitors for at least 6 months or more. He does take a daily low-dose aspirin. Denies any NSAID use or anticoagulation. Patient did not undergo screening colonoscopy with Dr. Duke in November 2021 with findings of diverticulosis, colon polyp status post polypectomy and internal hemorrhoids. Admitting labs WBC 7.3 hemoglobin 16.5 platelet count 331,000 sodium 135 potassium 4.3 BUN 11 creatinine 1.28 magnesium 1.9 total bilirubin 2.0 AST 72 ALT 46 alkaline phosphatase 160 lipase 33 serum alcohol less than 10. Patient currently resting comfortably without any complaints of abdominal pain nausea or vomiting at this time. States last bowel movement was yesterday afternoon denied any blood or black stool. Review of Systems REVIEW OF SYSTEMS: CARDIOPULMONARY: No chest pain or shortness of breath. Gastrointestinal: Abdominal pain. Nausea and vomiting. No hematemesis, reports coffee-ground emesis. No rectal bleeding, or melena. GENITOURINARY: No dysuria or hematuria. MUSCULOSKELETAL: Reports normal range of motion., Chronic back pain. Joint pain. SKIN: No rashes. No jaundice. ENDOCRINE: No chills, fevers. No excessive weight gain or loss. No polydipsia or polyuria. PSYCHIATRIC: Unremarkable. NEUROLOGY: No change in mental status. Denies dizziness, headache. ENT: Vision unremarkable. CONSTITUTIONAL: No recent weight loss. No fever, chills, night sweats. Past Medical History Past Medical History: Diabetes Mellitus, GERD/Reflux, Hyperlipidemia, Hypertension, Osteoarthritis (OA), Seizure Disorder Additional Past Medical History / Comment(s): Alcoholism - none x 16 mos., "bleeding ulcer" x 2 in 2022, tremors - worse when tired or agitated, NEW O[place] SEIZURE DISORDER-last seizure 05-05-23, dry skin lower legs, behind ears History of Any Multi-Drug Resistant Organisms: None Reported Past Surgical History: Adenoidectomy, Cholecystectomy, Orthopedic Surgery, Ton sillectomy Additional Past Surgical History / Comment(s): Left ankle surgery, RK ,cholecystectomy 2022 Past Anesthesia/Blood Transfusion Reactions: No Reported Reaction Additional Past Anesthesia/Blood Transfusion Reaction / Comm: states he metabolizes "local" anesthetic very quickly and is very concerned about how this will affect his procedure Smoking Status: Never smoker - Past Family History Mother Family Medical History: Congestive Heart Failure (CHF) Father Family Medical History: Cancer, CVA/TIA Additional Family Medical History / Comment(s): CVA X2, . Medications and Allergies Home Medications Medication Instructions Recorded Confirmed Type Atorvastatin Calcium [Lipitor] 10 mg PO HS 08/10/21 07/16/24 History Naltrexone HCl [Revia] 50 mg PO HS 08/10/21 07/16/24 History Folic Acid 1 mg PO HS 04/08/23 07/16/24 History Lisinopril-Hctz 10-12.5 mg 1 tab PO HS 04/08/23 07/16/24 History [Zestoretic 10-12.5] Cholecalciferol [Vitamin D3 (125 125 mcg PO HS 09/27/23 07/16/24 History Mcg = 5000 Iu)] lamoTRIgine [LaMICtal] 100 mg PO BID 09/27/23 07/16/24 History Azelastine HCl [Optivar 0.05% 2 drop BOTH EYES DAILY 07/16/24 07/16/24 History Ophth Soln] INSULIN LISPRO (For Pump) [humaLOG 0.01 units SQ-PUMP CONTINUOUS 07/16/24 07/16/24 History (For Pump)] Vitamin E (Dl,Tocopheryl Acet) 400 unit PO HS 07/16/24 07/16/24 History [Vitamin E (400 Iu = 180 mg)] lamoTRIgine [LaMICtal] 25 mg PO BID 07/16/24 07/16/24 History Allergies Allergy/AdvReac Type Severity Reaction Status Date / Time divalproex sodium Allergy headache,abd. Verified 07/16/24 08:32 [From Depakote] pain, N/V/diarrhea,tinnitus gadoteridol [From Prohance] AdvReac Nausea & Verified 07/16/24 08:32 Vomiting Physical Exam Vitals: Vital Signs Temp Pulse Resp BP Pulse Ox 07/16/24 07:36 98.0 F 07/16/24 06:34 97 18 102/70 95 07/16/24 01:48 100.1 F H 94 20 135/85 96 07/16/24 00:07 96 22 148/86 95 07/15/24 23:20 93 20 170/103 95 07/15/24 22:17 148/90 07/15/24 20:52 98.8 F 101 H 18 191/102 99 Intake and Output 07/15/24 07/16/24 07/16/24 22:59 06:59 14:59 Other: Voiding Method Toilet Weight 101.605 kg General appearance: The patient is alert, oriented, appears in no acute distress. HET: Head is normocephalic and atraumatic. Conjunctiva pink. Sclera anicteric. Neck: Supple without lymphadenopathy. Trachea midline. Heart: Regular. Lungs: Equal expansion, normal respiratory effort. Abdomen: Soft, mild epigastric tenderness, nondistended. Skin: No rashes. No jaundice. Extremities: Normal skin color and turgor. No pedal edema. Neurological: No focal deficits. Alert and oriented x3. Results CBC & Chem 7: 07/16/24 10:40 07/16/24 10:40 Labs: Abnormal Lab Results - Last 24 Hours (Table) 07/15/24 Range/Units 21:50 Sodium 135 L (137-145) mmol/L Chloride 94 L (98-107) mmol/L Creatinine 1.28 H (0.66-1.25) mg/dL Glucose 140 H (74-99) mg/dL Calcium 10.5 H (8.4-10.2) mg/dL Phosphorus 2.4 L (2.5-4.5) mg/dL Total Bilirubin 2.0 H (0.2-1.3) mg/dL AST 72 H (17-59) U/L Alkaline Phosphatase 160 H (38-126) U/L Total Protein 8.5 H (6.3-8.2) g/dL Albumin 5.1 H (3.5-5.0) g/dL Comments: CT abdomen pelvis with IV contrast reports no acute findings Assessment and Plan (1) Epigastric pain Narrative/Plan: 59-year-old male presenting with epigastric pain with associated nausea and vomiting with reported coffee-ground emesis and history of ulcers in the past. A longstanding history of alcohol abuse with previous history of upper GI bleed according to patient and [place] [facility] [place] and states he was noted to have 2 ulcers. He was on omeprazole for some time after but he has not been on any further proton pump inhibitor for several months. Denies any alcohol use for the last 28 months. Possible etiology of epigastric pain could be secondary to history of ulcers, gastritis, or other possible etiologies. Will proceed with direct visualization with upper endoscopy. Please try to obtain previous EGD and [place] reports [place] [facility] Current Visit: Yes Status: Acute Code(s): R10.13 - EPIGASTRIC PAIN SNOMED Code(s): 98744835 (2) Nausea & vomiting Current Visit: Yes Status: Acute Code(s): R11.2 - NAUSEA WITH VOMITING, UNSPECIFIED SNOMED Code(s): 29478085 Plan: 1. Continue symptomatic and supportive care 2. Protonix 40 mg IV twice daily 3. Patient may have clear liquid diet, n.p.o. after midnight 4. Avoid NSAIDs 5. Antiemetics as needed 6. Will plan for upper endoscopy tomorrow 7. Please obtain E[place] and [place] [facility] [place] Thank you for this consultation, we will continue to follow. Dr. Jerman Cole I agree with the dictator's note, documented as a scribe by Griselda Brown.
--- NOTE | 2024-07-16 12:58 | XR ---
EXAMINATION TYPE: XR shoulder complete RT DATE OF EXAM: 07/16/2024 CLINICAL INDICATION: Male, 59 years old with history of Shoulder pain, pain TECHNIQUE: Three views of the right shoulder are obtained. COMPARISON: None. FINDINGS: There is no acute fracture/dislocation evident in the right shoulder. [id number] yumi rowing at the acromioclavicular joint. Glenohumeral joint is preserved. The visualized ribs are inta ct. IMPRESSION: As above. [facility], , 07/16/2024 12:56 PM
[2024-07-16] MEDS ORDERED: LORazepam 1 MG/0.5 ML VIAL IV PRN ×3 (14:13→14:15)
[2024-07-16] MEDS: lamoTRIgine 100 MG TAB PO SCH (15:51)
[2024-07-16] MEDS: lamoTRIgine 25 MG TAB PO SCH (15:51)
[2024-07-16] MEDS: INSULIN LISPRO (For Pump) 100 UNIT/ML VIAL SQ-PUMP SCH (15:53)
[2024-07-16 17:15] LABS: Glucose,Whole Blood 132 mg/dL (70-110)
[2024-07-16] MEDS: KETOTIFEN 0.025% OPHTH DROPS 5 ML BTL BOTH EYES SCH (17:47)
[2024-07-16 19:51] LABS: Glucose,Whole Blood 64 mg/dL (70-110)
[2024-07-16] MEDS: FOLIC ACID 1 MG TAB PO SCH (19:56)
[2024-07-16] MEDS: ATORVASTATIN 10 MG TAB PO SCH (19:56)
[2024-07-16] MEDS: CHOLECALCIFEROL 125 MCG (5000 IU) TABLET PO SCH (19:56)
[2024-07-16] MEDS: LISINOPRIL-HCTZ 10-12.5 MG 1 EACH TAB PO SCH (19:56)
[2024-07-16] MEDS: VITAMIN E (DL,TOCOPHERYL ACET) 400 UNIT (180 MG) CAP PO SCH (20:02)
[2024-07-16 20:21] LABS: Glucose,Whole Blood 76 mg/dL (70-110)
[2024-07-16] MEDS ORDERED: NALTREXONE HCL 50 MG TAB PO SCH (21:00)
[2024-07-16 21:30] LABS: Glucose,Whole Blood 64 mg/dL (70-110)
[2024-07-16 21:48] LABS: Glucose,Whole Blood 105 mg/dL (70-110)
[2024-07-16] MEDS: lamoTRIgine 25 MG TAB PO ONE (22:31)
[2024-07-16] MEDS: lamoTRIgine 100 MG TAB PO ONE (22:31)
[2024-07-16] MEDS: NALTREXONE HCL 50 MG TAB PO SCH (23:23)
[2024-07-17 00:08] LABS: Glucose,Whole Blood 113 mg/dL (70-110)
[2024-07-17 07:25] LABS: Glucose,Whole Blood 109 mg/dL (70-110)
[2024-07-17 08:43] LABS: ALT 33 U/L (10-49); AST 46 U/L (14-35); Albumin 3.8 g/dL (3.8-4.9); Alkaline Phosphatase 95 U/L (41-126); BUN/Creat Ratio 9.27 Ratio (12.00-20.00); Blood Urea Nitrogen 10.2 mg/dL (9.0-27.0); Calcium 8.5 mg/dL (8.7-10.3); Carbon Dioxide 25.7 mmol/L (21.6-31.8); Chloride 99 mmol/L (96-109); Glucose 119 mg/dL (70-110); Magnesium 1.9 mg/dL (1.5-2.4); Phosphorus 3.5 mg/dL (2.4-5.1); Potassium 3.7 mmol/L (3.5-5.5); Sodium 136 mmol/L (135-145); Total Bilirubin 1.4 mg/dL (0.3-1.2); Total Protein 5.8 g/dL (6.2-8.2)
[2024-07-17 08:46] LABS: Basophils # (A) 0.04 X 10*3/uL (0.00-0.10); Basophils % (A) 0.5 %; Eosinophils # (A) 0.07 X 10*3/uL (0.04-0.35); Eosinophils % (A) 0.9 %; HCT 38.8 % (39.6-50.0); HGB 12.8 g/dL (13.0-17.0); Lymphocytes # (A) 2.03 X 10*3/uL (0.90-5.00); Lymphocytes % (A) 26.6 %; MCH 30.6 pg (27.0-32.0); MCV 92.8 FL (80.0-97.0); Mean Platelet Volume 9.8 FL (9.5-12.2); Monocytes # (A) 0.89 X 10*3/uL (0.20-1.00); Monocytes % (A) 11.6 %; NRBC Per 100 WBC 0 X 10*3/uL (0.00-0.01); Neutrophils # (A) 4.58 X 10*3/uL (1.80-7.70); Platelet Count 235 X 10*3/uL (140-440); RBC 4.18 X 10*6/uL (4.40-5.60); RDW 13.4 % (11.5-14.5); WBC 7.64 X 10*3/uL (4.50-10.00)
[2024-07-17] MEDS ORDERED: PROPOFOL 10 MG/ML 20 ML VIAL IV ONE (09:18)
[2024-07-17] MEDS ORDERED: LIDOCAINE 1% INJ 10MG/ML (20 ML MDV) ONE (09:18)
[2024-07-17] MEDS: IV FLUID CONTINUATION 1,000 ML IV ONE ×2 (09:19→09:37)
[2024-07-17 09:37] LABS: INR 0.99 sec (0.93-1.11); Prothrombin Time 11.1 sec (9.9-11.9)
--- NOTE | 2024-07-17 09:38 | P.PCN ---
Date of Procedure: 07/17/24 Procedure(s) Performed: BRIEF HISTORY: Patient is a 59-year-old, pleasant, admitted to hospital with intermittent episodes of nausea vomiting and epigastric pain on and off for the last 10 years duration. His symptoms have been progressively getting worse and recent episode has been going on for the last few days. He was hence admitted to hospital for further management and is scheduled for an upper endoscopy to evaluate further. History of peptic ulcer disease diagnosed in November 2022. PROCEDURE PERFORMED: Esophagogastroduodenoscopy with biopsy PREOPERATIVE DIAGNOSIS: Epigastric pain associate with intermittent nausea vomiting. IV sedation per anesthesia. PROCEDURE: After informed consent was obtained, the patient was brought into the endoscopy unit. IV sedation was administered by Anesthesia under continuous monitoring. Initially the Olympus GIF-140 video endoscope was inserted into the mouth. Esophagus intubated without any difficulty. It was gradually advanced into the stomach and duodenum and carefully examined. The bulb and the second part of the duodenum appeared normal. The scope at this time was withdrawn to the stomach, adequately insufflated with air, and upon careful examination, mucosa of the antrum, had mild gastritis and biopsies were done from this area. Because of the body, cardia and the fundus appeared normal. The scope was then withdrawn into the esophagus. The GE junction was located at 39 cm from the incisors. There were 2 superficial erosions of the GE junction consistent with LA grade B reflux esophagitis. The rest of the esophagus appeared normal. The patient tolerated the procedure well. IMPRESSION: 1. Mild antral gastritis. 2. LA grade B reflux esophagitis. RECOMMENDATIONS: The findings of this examination were discussed with the patient. He will continue Protonix 40 mg daily and antiemetics as needed. Advance diet as tolerated. Patient will discharge home today with an outpatient follow-up in 2 to 3 weeks.
[2024-07-17 12:14] LABS: Glucose,Whole Blood 146 mg/dL (70-110)
[2024-07-18 08:17] VITALS: BP 145/81; PULSE 95; RESP 17; TEMP 98.5
--- NOTE | 2024-07-22 13:52 | P.DS ---
Providers Date of admission: 07/15/24 23:59 Expected date of discharge: 07/17/24 Attending physician: Toro Easley Consults: 07/15/24 23:59 Consult Physician Routine Consulting Provider: Yoly Cole Consult Reason/Comments: ulcer h.o Do you want consulting provider notified?: Yes Primary care physician: Onelia Oscar, DO Hospital Course: Final diagnosis Nausea and vomiting with blood streaks likely secondary to Yina-Simmons tear, status post EGD with mild antral gastritis and grade B esophagitis, with biopsies obtained and pending Chest pain, ruled out ACS likely epigastric Dehydration with acute JAIDEN, improved with fluids History of diabetes mellitus, type II Hypertension GI prophylaxis DVT prophylaxis Full code Discharge disposition Patient is being discharged in a stable condition with guarded prognosis to home. Patient will follow-up with Dr. Oscar in the outpatient setting upon discharge. Patient is to continue with Protonix on discharge and outpatient follow-up with GI for biopsy results as scheduled. Total time taken is greater than 35 minutes. Hospital course This is a 59-year-old male who was recently admitted with nausea and vomiting w ith blood streaks noted status post EGD showing mild antral gastritis and grade B esophagitis with biopsies obtained. Patient maintained on IV Protonix and will transition to oral Protonix and recommend to continue with soft diet and slowly advance as tolerated. Patient to follow-up with GI in the outpatient setting regarding biopsy results. Patient has been instructed to follow-up with primary care provider on discharge as well as cardiology in the outpatient setting. Patient has been cleared by consultations for discharge. Please refer to consultation notes for further HPI. Currently no reports of chest pain, shortness of breath, or palpitations. Patient is afebrile. No reports of nausea or vomiting and patient is tolerating diet. Patient will be discharged home today. Physical exam: Gen: This is a 59-year-old male who is awake, alert and oriented x 3, well- developed, well-nourished, appears older than stated age HEENT: Head is atraumatic, normocephalic. Pupils equal, round. Sclerae is anicteric. NECK: Supple. No JVD. No lymphadenopathy. No thyromegaly. LUNGS: diminished breath sounds bilaterally otherwiseClear to auscultation. No wheezes or rhonchi. No intercostal retractions. HEART: Regular rate and rhythm. No murmur. ABDOMEN: Soft. Bowel sounds are present. No masses. No tenderness. EXTREMITIES: No pedal edema. No calf tenderness. NEUROLOGICAL: Patient is awake, alert and oriented x3. Cranial nerves 2 through 12 are grossly intact. Please refer to medication reconciliation sheet for a list of medications. The impression and plan of care has been dictated by Fernanda Oreilly, Nurse Practitioner as directed. Dr. Kaushal MD I have performed a history and examination and MDM of this patient, discussed the same with the dictator, and agree with the dictator's assessment and plan as written ,documented as a scribe. Based on total visit time, I have performed more than 50% of the visit. Patient Condition at Discharge: Fair Plan - Discharge Summary Discharge Rx Participant: No New Discharge Prescriptions: New Pantoprazole [Protonix] 40 mg PO DAILY #30 tab Acetaminophen Tab [Tylenol] 650 mg PO Q6HR PRN tab PRN Reason: Fever And/ Or Pain Ondansetron Odt [Zofran Odt] 4 mg PO Q8HR PRN #20 tab PRN Reason: Nausea Continue Naltrexone HCl [Revia] 50 mg PO HS Lisinopril-Hctz 10-12.5 mg [Zestoretic 10-12.5] 1 tab PO HS Folic Acid 1 mg PO HS INSULIN LISPRO (For Pump) [humaLOG (For Pump)] 0.01 units SQ-PUMP CONTINUOUS Vitamin E (Dl,Tocopheryl Acet) [Vitamin E (400 Iu = 180 mg)] 400 unit PO HS Atorvastatin Calcium [Lipitor] 10 mg PO HS Cholecalciferol [Vitamin D3 (125 Mcg = 5000 Iu)] 125 mcg PO HS lamoTRIgine [LaMICtal] 100 mg PO BID Azelastine HCl [Optivar 0.05% Ophth Soln] 2 drop BOTH EYES DAILY lamoTRIgine [LaMICtal] 25 mg PO BID Discharge Medication List Atorvastatin Calcium [Lipitor] 10 mg PO HS 08/10/21 [History] Naltrexone HCl [Revia] 50 mg PO HS 08/10/21 [History] Folic Acid 1 mg PO HS 04/08/23 [History] Lisinopril-Hctz 10-12.5 mg [Zestoretic 10-12.5] 1 tab PO HS 04/08/23 [History] Cholecalciferol [Vitamin D3 (125 Mcg = 5000 Iu)] 125 mcg PO HS 09/27/23 [History] lamoTRIgine [LaMICtal] 100 mg PO BID 09/27/23 [History] Azelastine HCl [Optivar 0.05% Ophth Soln] 2 drop BOTH EYES DAILY 07/16/24 [History] INSULIN LISPRO (For Pump) [humaLOG (For Pump)] 0.01 units SQ-PUMP CONTINUOUS 07/16/24 [History] Vitamin E (Dl,Tocopheryl Acet) [Vitamin E (400 Iu = 180 mg)] 400 unit PO HS 07/16/24 [History] lamoTRIgine [LaMICtal] 25 mg PO BID 07/16/24 [History] Acetaminophen Tab [Tylenol] 650 mg PO Q6HR PRN tab 07/17/24 [Rx] Ondansetron Odt [Zofran Odt] 4 mg PO Q8HR PRN #20 tab 07/17/24 [Rx] Pantoprazole [Protonix] 40 mg PO DAILY #30 tab 07/17/24 [Rx] Follow up Appointment(s)/Referral(s): Yoly Cole MD [STAFF PHYSICIAN] - 3 Weeks (Office to call patient to schedule appointment. If not notified in 24hr after discharge, please call office) Onelia Oscar DO [Primary Care Provider] - 1-2 days (Please call office when open) Patient Instructions/Handouts: Acute Nausea and Vomiting (DC), Type 2 Diabetes in the Older Adult (DC), Upper Endoscopy (DC) Activity/Diet/Wound Care/Special Instructions: Activity limited until follow-up Follow-up with primary care provider on discharge Follow-up with GI in 2 to 3 weeks Continue taking medications as prescribed Continue with antinausea medication as needed Slowly advance diet as tolerated over the next few days Discharge Disposition: HOME SELF-CARE
== END 2024-07-17 16:00 | disposition home or self-care (01) ==
LOC: EC 20:51 → INTOOBSV 23:59 → 5NMEDONC 23:59
PROVIDERS: ADMIT Hospitalist; ATTEND Hospitalist
DX: K22.6 Gastro-esophageal laceration-hemorrhage syndrome (principal); K29.50 Unspecified chronic gastritis without bleeding; K21.00 Gastro-esophageal reflux disease with esophagitis, without bleeding; E86.0 Dehydration; N17.9 Acute kidney failure, unspecified; K52.9 Noninfective gastroenteritis and colitis, unspecified; E11.9 Type 2 diabetes mellitus without complications; E78.5 Hyperlipidemia, unspecified; I10 Essential (primary) hypertension; Z87.11 Personal history of peptic ulcer disease; Z79.4 Long term (current) use of insulin; Z79.899 Other long term (current) drug therapy
CPT/HCPCS: 96376 ×3; 96374; 96375; 99285; 36415; 88305; 80053 ×3; 83690; 83735 ×3; 84100 ×3; 85025 ×3; 85610; 73030; 74177; 43239; G0378 ×3; G0480; J2060 ×2; J2405 ×2; J2003; J2704; Q9967; J1790; J2470 ×3; 80320; 96361

== ENCOUNTER 2024-08-10 15:48 | Observation (INO) | payer OTHER ==
--- NOTE | 2024-08-10 16:22 | ED ---
Nausea/Vomiting/Diarrhea HPI - General Chief complaint: Nausea/Vomiting/Diarrhea Stated complaint: N/V Time Seen by Provider: 08/10/24 16:03 Source: patient, RN notes reviewed, old records reviewed Mode of arrival: wheelchair Limitations: no limitations - History of Present Illness Initial comments: This is a 59-year-old male with severe nausea and vomiting. Patient has been to the ER with recent endoscopy for upper GI symptoms, persistent nausea vomiting for months to year, bilious vomiting persistent nausea and vomiting old history of alcoholism no drugs no recent drugs or alcohol also complains of chronic back pain. Patient has had gallbladder removal MD complaint: nausea, vomiting -: days(s) Description of Vomiting: watery, bilious Associated Abdominal Pain: No Location: periumbilical, epigastric Severity scale (1-10): 7 Quality: aching Consistency: intermittent Improves with: none Worsens with: none Context: history of abdominal surgery Associated Symptoms: loss of appetite, malaise, nausea/vomiting, weakness - Related Data Home Medications Medication Instructions Recorded Confirmed Atorvastatin Calcium [Lipitor] 10 mg PO HS 08/10/21 08/10/24 Naltrexone HCl [Revia] 50 mg PO HS 08/10/21 08/10/24 Folic Acid 1 mg PO HS 04/08/23 08/10/24 Lisinopril-Hctz 10-12.5 mg 1 tab PO HS 04/08/23 08/10/24 [Zestoretic 10-12.5] Cholecalciferol [Vitamin D3 (125 125 mcg PO HS 09/27/23 08/10/24 Mcg = 5000 Iu)] lamoTRIgine [LaMICtal] 100 mg PO BID 09/27/23 08/10/24 Azelastine HCl [Optivar 0.05% 2 drop BOTH EYES DAILY PRN 07/16/24 08/10/24 Ophth Soln] INSULIN LISPRO (For Pump) [humaLOG 0.01 units SQ-PUMP CONTINUOUS 07/16/24 08/10/24 (For Pump)] Vitamin E (Dl,Tocopheryl Acet) 400 unit PO HS 07/16/24 08/10/24 [Vitamin E (400 Iu = 180 mg)] lamoTRIgine [LaMICtal] 25 mg PO BID 07/16/24 08/10/24 Pantoprazole [Protonix] 40 mg PO HS 08/10/24 08/10/24 Previous Rx's Medication Instructions Recorded Acetaminophen Tab [Tylenol] 650 mg PO Q6HR PRN tab 07/17/24 Ondansetron Odt [Zofran Odt] 4 mg PO Q8HR PRN #20 tab 07/17/24 Allergies Allergy/AdvReac Type Severity Reaction Status Date / Time divalproex sodium Allergy headache,abd. Verified 08/10/24 18:42 [From Depakote] pain, N/V/diarrhea,tinnitus gadoteridol [From Prohance] AdvReac Nausea & Verified 08/10/24 18:42 Vomiting Review of Systems ROS Statement: Those systems with pertinent positive or pertinent negative responses have been documented in the HPI. ROS Other: All systems not noted in ROS Statement are negative. Past Medical History Past Medical History: Diabetes Mellitus, GERD/Reflux, Hyperlipidemia, H ypertension, Osteoarthritis (OA), Seizure Disorder Additional Past Medical History / Comment(s): Alcoholism - none x 16 mos., "bleeding ulcer" x 2 in 2022, tremors - worse when tired or agitated, [place] SEIZURE DISORDER-last seizure 05-05-23, dry skin lower legs, behind ears History of Any Multi-Drug Resistant Organisms: None Reported Past Surgical History: Adenoidectomy, Cholecystectomy, Orthopedic Surgery, Tonsillectomy Additional Past Surgical History / Comment(s): Left ankle surgery, RK 19 80's,cholecystectomy 2022 Past Anesthesia/Blood Transfusion Reactions: No Reported Reaction Additional Past Anesthesia/Blood Transfusion Reaction / Comment(s): states he metabolizes "local" anesthetic very quickly and is very concerned about how this will affect his procedure Past Psychological History: Anxiety, Depression, PTSD Smoking Status: Never smoker Past Alcohol Use History: None Reported Past Drug Use History: None Reported - Past Family History Mother Family Medical History: Congestive Heart Failure (CHF) Father Family Medical History: Cancer, CVA/TIA Additional Family Medical History / Comment(s): CVA X2, . General Exam Limitations: no limitations General appearance: alert, in no apparent distress Head exam: Present: atraumatic, normocephalic, normal inspection Eye exam: Present: normal appearance, PERRL, EOMI. Absent: scleral icterus, conjunctival injection, periorbital swelling ENT exam: Present: normal exam, mucous membranes dry Neck exam: Present: normal inspection. Absent: tenderness, meningismus, lymphadenopathy Respiratory exam: Present: normal lung sounds bilaterally. Absent: respiratory distress, wheezes, rales, rhonchi, stridor Cardiovascular Exam: Present: normal rhythm, tachycardia, normal heart sounds. Absent: systolic murmur, diastolic murmur, rubs, gallop, clicks GI/Abdominal exam: Present: soft, normal bowel sounds. Absent: distended, t enderness, guarding, rebound, rigid Extremities exam: Present: normal inspection, full ROM, normal capillary refill. Absent: tenderness, pedal edema, joint swelling, calf tenderness Back exam: Present: normal inspection Neurological exam: Present: alert, oriented X3, CN II-XII intact Psychiatric exam: Present: normal affect, normal mood Skin exam: Present: warm, dry, intact, normal color. Absent: rash Course Vital Signs 08/10/24 15:51 Temperature 98.4 F Pulse Rate 113 H Respiratory 18 Rate Blood Pressure 166/92 O2 Sat by Pulse 96 Oximetry - Reevaluation(s) Reevaluation #1: 08/10/24 16:28 Medical records reviewed Reevaluation #2: 08/10/24 19:56 Patient is continue to mildly improve here in the ER Reevaluation #3: 08/10/24 19:56 Patient informed of results and questions answered Reevaluation #4: Was pt. sent in by a medical professional or institution (, PA, CONVENTIONS ASSISTANT, urgent ca re, hospital, or prison...) When possible be specific @ -no Did you speak to anyone other than the patient for history (EMS, parent, family, police, friend...)? What history was obtained from this source @ -no Did you review nursing and triage notes (agree or disagree)? Why? @ -agree Are old charts reviewed (outside hosp., previous admission, EMS record, old EKG, old radiological studies, urgent care reports/EKG's, prison records)? Report findings @ -yes Differential Diagnosis (chest pain, altered mental status, abdominal pain women, abdominal pain men, vaginal bleeding, weakness, fever, dyspnea, syncope, headache, dizziness, GI bleed, back pain, seizure, CVA, palpatations, mental health, musculoskeletal)? @ -prior EKG interpreted by me (3pts min.). @ -yes X-rays interpreted by me (1pt min.). @ -yes negative for acute disease CT interpreted by me (1pt min.). @ -no U/S interpreted by me (1pt. min.). @ -no What testing was considered but not performed or refused? (CT, X-rays, U/S, labs)? Why? @ -none What meds were considered but not given or refused? Why? @ -none Did you discuss the management of the patient with other professionals (professionals i.e. , PA, CONVENTIONS ASSISTANT, lab, RT, psych nurse, social insurance adviser, financial health counselor, teacher, radiological defense officer, shelter case manager)? Give summary @ -no Was smoking cessation discussed for >3mins.? @ -no Was critical care preformed (if so, how long)? @ -no Were there social determinants of health that impacted care today? How? (Homel essness, low income, unemployed, alcoholism, drug addiction, transportation, low edu. Level, literacy, decrease access to med. care, [place] [facility], rehab)? @ -none Was there de-escalation of care discussed even if they declined (Discuss DNR or withdrawal of care, Hospice)? DNR status @ -no What co-morbidities impacted this encounter? (DM, HTN, Smoking, COPD, CAD, Cancer, CVA, ARF, Chemo, Hep., AIDS, mental health diagnosis, sleep apnea, morbid obesity)? @ -none Was patient admitted / discharged? Hospital course, mention meds given and route, prescriptions, significant lab abnormalities, going to OR and other pertinent info. @ - Undiagnosed new problem with uncertain prognosis? @ -no Drug Therapy requiring intensive monitoring for toxicity (Heparin, Nitro, Insulin, Cardizem)? @ -no Were any procedures done? @ -no Diagnosis/symptom? @ - Acute, or Chronic, or Acute on Chronic? @ -Acute Uncomplicated (without systemic symptoms) or Complicated (systemic symptoms)? @ -Complicated Side effects of treatment? @ -no Exacerbation, Progression, or Severe Exacerbation? @ -exacerbation Poses a threat to life or bodily function? How? (Chest pain, [place], [place], pneumonia, PE, COPD, DKA, ARF, appy, cholecystitis, CVA, Diverticulitis, Homicidal, Suicidal, threat to staff... and all critical care pts) @ -yes Reevaluation #5: Differential Abdominal Pain Men: Appendicitis, cholecystitis, diverticulosis, ischemic bowel, pancreatitis, hepatitis, UTI, gastroenteritis, AAA, incarcerated hernia, bowel obstruction, constipation, inflammatory bowel, hepatitis, peptic ulcer disease, splenic infarction, perforated viscus, testicular torsion, this is not meant to be an all-inclusive list - Consultations Consultation #1: spoke w [facility] for admission Medical Decision Making - Medical Decision Making 59 male to ER for severe nausea vomiting recent endoscopy to kind of diagnose, patient has had years of vomiting bilious vomiting no gallbladder, patient will be admitted for symptom management blood sugar elevated does not appear to be in DKA with no significant tachypnea - Lab Data Result diagrams: 08/10/24 16:36 08/10/24 16:36 Lab Results 08/10/24 08/10/24 Range/Units 16:36 16:36 WBC 17.38 H (4.50-10.00) 10*3/uL RBC 4.62 (4.40-5.60) 10*6/uL Hgb 14.8 (13.0-17.0) g/dL Hct 41.7 (39.6-50.0) % MCV 90.3 (80.0-97.0) fL MCH 32.0 (27.0-32.0) pg MCHC 35.5 (32.0-37.0) g/dL Plt Count 307 (140-440) 10*3/uL MPV 9.5 (9.5-12.2) fL Immature Gran % (Auto) 0.5 % Neutrophils % 89.9 % Lymphocytes % 4.3 % Monocytes % 4.7 % Eosinophils % 0.3 % Basophils % 0.3 % Immature Gran # 0.09 H (0.00-0.04) 10*3/uL Neutrophils # 15.63 H (1.80-7.70) 10*3/uL Lymphocytes # 0.75 L (0.90-5.00) 10*3/uL Monocytes # 0.81 (0.20-1.00) 10*3/uL Eosinophils # 0.05 (0.04-0.35) 10*3/uL Basophils # 0.05 (0.00-0.10) 10*3/uL Sodium 134 L (137-145) mmol/L Potassium 5.1 (3.5-5.1) mmol/L Chloride 93 L (98-107) mmol/L Carbon Dioxide 17 L (22-30) mmol/L Anion Gap 24 mmol/L BUN 16 (9-20) mg/dL Creatinine 1.18 (0.66-1.25) mg/dL Est GFR (CKD-EPI)AfAm 78 (>60 ml/min/1.73 sqM) Est GFR (CKD-EPI)NonAf 67 (>60 ml/min/1.73 sqM) Glucose 365 H (74-99) mg/dL Calcium 10.0 (8.4-10.2) mg/dL Phosphorus 4.0 (2.5-4.5) mg/dL Magnesium 1.9 (1.6-2.3) mg/dL Total Bilirubin 1.7 H (0.2-1.3) mg/dL AST 51 (17-59) U/L ALT 35 (4-49) U/L Alkaline Phosphatase 157 H (38-126) U/L Total Protein 7.6 (6.3-8.2) g/dL Albumin 4.8 (3.5-5.0) g/dL Lipase 55 (23-300) U/L - EKG Data -: EKG Interpreted by Me Disposition Clinical Impression: Nausea & vomiting, Gastroenteritis, Dehydration, Vomiting, Diabetic ketoacidosis Disposition: ADMITTED IP TO THIS HOSP Condition: Fair Is patient prescribed a controlled substance at d/c from ED?: No Referrals: Onelia Oscar DO [Primary Care Provider] - 1-2 days Time of Disposition: 19:00
[2024-08-10 16:43] LABS: Basophils # (A) 0.05 10*3/uL (0.00-0.10); Basophils % (A) 0.3 %; Eosinophils # (A) 0.05 10*3/uL (0.04-0.35); Eosinophils % (A) 0.3 %; HCT 41.7 % (39.6-50.0); HGB 14.8 g/dL (13.0-17.0); Lymphocytes # (A) 0.75 10*3/uL (0.90-5.00); Lymphocytes % (A) 4.3 %; MCHC 35.5 g/dL (32.0-37.0); MCV 90.3 fL (80.0-97.0); Mean Platelet Volume 9.5 fL (9.5-12.2); Monocytes # (A) 0.81 10*3/uL (0.20-1.00); Monocytes % (A) 4.7 %; Neutrophils # (A) 15.63 10*3/uL (1.80-7.70); Neutrophils % (A) 89.9 %; Platelet Count 307 10*3/uL (140-440); RBC 4.62 10*6/uL (4.40-5.60); RDW 13.4 % (11.5-14.5); WBC 17.38 10*3/uL (4.50-10.00)
[2024-08-10] MEDS: ONDANSETRON 4 MG/2 ML VIAL IVP STA (17:00)
[2024-08-10] MEDS: SODIUM CHLORIDE 0.9% 2,000 ML IV STA (17:00)
[2024-08-10] MEDS: LORazepam 2 MG/ML INJ IV STA (17:01)
[2024-08-10 17:03] LABS: African American GFR (CKD) 78 (>60 ml/min/1.73 sqM); Albumin 4.8 g/dL (3.5-5.0); Anion Gap 24 mmol/L; Blood Urea Nitrogen 16 mg/dL (9-20); Carbon Dioxide 17 mmol/L (22-30); Chloride 93 mmol/L (98-107); Glucose 365 mg/dL (74-99); Lipase 55 U/L (23-300); Magnesium 1.9 mg/dL (1.6-2.3); Non-African American GFR(CKD) 67 (>60 ml/min/1.73 sqM); Sodium 134 mmol/L (137-145); Total Bilirubin 1.7 mg/dL (0.2-1.3); Total Protein 7.6 g/dL (6.3-8.2)
[2024-08-10 17:04] LABS: Potassium 5.1 mmol/L (3.5-5.1)
[2024-08-10 17:05] LABS: AST 51 U/L (17-59); Alkaline Phosphatase 157 U/L (38-126)
[2024-08-10 17:13] LABS: ALT 35 U/L (4-49)
[2024-08-10] MEDS: lamoTRIgine 100 MG TAB PO STA (18:27)
[2024-08-10] MEDS: INSULIN REGULAR 100 UNIT/ML VIAL (IM/SQ) SQ ONE (18:28)
[2024-08-10] MEDS ORDERED: NALOXONE 0.4 MG/ML 1 ML VIAL IV PRN (19:54)
[2024-08-10] MEDS: LACTATED RINGERS 1,000 ML IV ONE (20:29)
[2024-08-10] MEDS: PANTOPRAZOLE 40 MG/10 ML VIAL IV SCH (20:29)
[2024-08-10] MEDS: ONDANSETRON 4 MG/2 ML VIAL IVP PRN (22:53)
[2024-08-10] MEDS: SODIUM CHLORIDE 0.9% 1,000 ML IV SCH (22:53)
[2024-08-10] MEDS: MORPHINE SULFATE 4 MG/ML SYRINGE IV PRN (23:21)
[2024-08-11] MEDS ORDERED: KETOTIFEN 0.025% OPHTH DROPS 5 ML BTL BOTH EYES PRN (01:31)
[2024-08-11] MEDS: INSULIN LISPRO (For Pump) 100 UNIT/ML VIAL SQ-PUMP SCH (02:31)
[2024-08-11] MEDS: PROCHLORPERAZINE INJ 10 MG/2 ML VIAL IVP PRN (03:08)
[2024-08-11 06:06] LABS: Glucose,Whole Blood 481 mg/dL (70-110)
[2024-08-11] MEDS ORDERED: DEXTROSE 50% SYRINGE 50 ML IVP PRN ×2 (06:17)
[2024-08-11] MEDS: INSULIN LISPRO (HumaLOG) 100 UNIT/ML 10 mL VL SQ SCH (06:52)
[2024-08-11] MEDS: lamoTRIgine 100 MG TAB PO SCH (07:42)
[2024-08-11] MEDS: lisinopriL 20 MG TAB PO SCH (07:42)
[2024-08-11] MEDS: lamoTRIgine 25 MG TAB PO SCH (07:43)
[2024-08-11] MEDS: INSULIN GLARGINE (LANTUS) 100 UNIT/ML SYR SQ SCH ×2 (07:43→22:23)
[2024-08-11 10:18] LABS: Basophils # (A) 0.02 X 10*3/uL (0.00-0.10); Basophils % (A) 0.2 %; Eosinophils # (A) 0.09 X 10*3/uL (0.04-0.35); Eosinophils % (A) 0.9 %; HCT 40.5 % (39.6-50.0); HGB 13.2 g/dL (13.0-17.0); Lymphocytes # (A) 0.69 X 10*3/uL (0.90-5.00); Lymphocytes % (A) 6.7 %; MCH 30.5 pg (27.0-32.0); MCHC 32.6 g/dL (32.0-37.0); MCV 93.5 FL (80.0-97.0); Mean Platelet Volume 10.5 FL (9.5-12.2); Monocytes # (A) 0.67 X 10*3/uL (0.20-1.00); Monocytes % (A) 6.5 %; NRBC Per 100 WBC 0 X 10*3/uL (0.00-0.01); Neutrophils # (A) 8.86 X 10*3/uL (1.80-7.70); Neutrophils % (A) 85.3 %; Platelet Count 277 X 10*3/uL (140-440); RBC 4.33 X 10*6/uL (4.40-5.60); RDW 13.9 % (11.5-14.5); WBC 10.37 X 10*3/uL (4.50-10.00)
[2024-08-11 10:22] LABS: BUN/Creat Ratio 13.93 Ratio (12.00-20.00); Blood Urea Nitrogen 19.5 mg/dL (9.0-27.0); Glucose 394 mg/dL (70-110)
[2024-08-11 10:23] LABS: ALT 24 U/L (10-49); AST 33 U/L (14-35); Albumin 4.3 g/dL (3.8-4.9); Albumin/Globulin Ratio 1.72 Ratio (1.60-3.17); Alkaline Phosphatase 119 U/L (41-126); Calcium 9.1 mg/dL (8.7-10.3); Carbon Dioxide 16.1 mmol/L (21.6-31.8); Chloride 96 mmol/L (96-109); Globulin 2.5 g/dL (1.6-3.3); Magnesium 1.9 mg/dL (1.5-2.4); Phosphorus 3.6 mg/dL (2.4-5.1); Potassium 4.9 mmol/L (3.5-5.5); Sodium 135 mmol/L (135-145); Total Bilirubin 1.2 mg/dL (0.3-1.2); Total Protein 6.8 g/dL (6.2-8.2)
[2024-08-11 12:00] LABS: Glucose,Whole Blood 369 mg/dL (70-110)
[2024-08-11 13:23] LABS: African American GFR (CKD) 65 (>60 ml/min/1.73 sqM); Anion Gap 15 mmol/L; Blood Urea Nitrogen 23 mg/dL (9-20); Carbon Dioxide 19 mmol/L (22-30); Chloride 97 mmol/L (98-107); Glucose 443 mg/dL (74-99); Non-African American GFR(CKD) 56 (>60 ml/min/1.73 sqM); Potassium 4.1 mmol/L (3.5-5.1); Sodium 131 mmol/L (137-145)
[2024-08-11 13:50] LABS: Glucose,Whole Blood 446 mg/dL (70-110)
[2024-08-11] MEDS: INSULIN LISPRO (HumaLOG) 100 UNIT/ML 10 mL VL SQ ONE (13:59)
--- NOTE | 2024-08-11 14:34 | P.HPIM ---
History of Present Illness H&P Date: 08/11/24 History of present illness; patient is a 59-year-old gentleman with past medical history significant for diabetes mellitus, history of alcohol abuse presented the ER because of nausea and vomiting. Patient was recently admitted in July of this year at which time patient had a EGD done that showed mild antral gastritis and LA grade B reflux esophagitis. Patient was apparently in the hospital getting PET scan done when he started having another episode of nausea and vomiting. There was no complaint abdominal pain. There was no complaint of chest pain. Patient denies any shortness of breath. There is no complaint of altered bowel movements. Because of his nausea and vomiting, patient came to the ER Initial lab work done in the ER showed WBC 17.38, hemoglobin 14.8, platelet count 307, sodium 134, potassium 5.1, BUN 16, creatinine 1.18, glucose 365 calcium 10 bilirubin 1.7, alk phos 157 Patient admitted to internal medicine service REVIEW OF SYSTEMS: CONSTITUTIONAL: No fever, no malaise, no fatigue. HEENT: No recent visual problems or hearing problems. Denied any sore throat. CARDIOVASCULAR: No chest pain, orthopnea, PND, no palpitations, no syncope. PULMONARY: No shortness of breath, no cough, no hemoptysis. GASTROINTESTINAL: As mentioned above . NEUROLOGICAL: No headaches, no weakness, no numbness. HEMATOLOGICAL: Denies any bleeding or petechiae. GENITOURINARY: Denies any burning micturition, frequency, or urgency. MUSCULOSKELETAL/RHEUMATOLOGICAL: Denies any joint pain, swelling, or any muscle pain. ENDOCRINE: Denies any polyuria or polydipsia. The rest of the 14-point review of systems is negative. PHYSICAL EXAMINATION: GENERAL: The patient is alert and oriented x3, not in any acute distress. Well developed, well nourished. HEENT: Pupils are round and equally reacting to light. EOMI. No scleral icterus. No conjunctival pallor. Normocephalic, atraumatic. No pharyngeal erythema. No thyromegaly. CARDIOVASCULAR: S1 and S2 present. No murmurs, rubs, or gallops. PULMONARY: Chest is clear to auscultation, no wheezing or crackles. ABDOMEN: Soft, nontender, nondistended, normoactive bowel sounds. No palpable organomegaly. MUSCULOSKELETAL: No joint swelling or deformity. EXTREMITIES: No cyanosis, clubbing, or pedal edema. NEUROLOGICAL: Gross neurological examination did not reveal any focal deficits. SKIN: No rashes. Assessment and plan Nausea and vomiting Hyperglycemia Mild DKA History of diabetes mellitus, type II Hypertension Monitor vital signs Monitor CBC Monitor CMP Ordered antiemetics Ordered IV fluid Ordered blood glucose monitoring, currently will place patient on sliding scale insulin and Lantus. If patient repeat blood work shows worsening anion gap or acidosis we will switch him to insulin drip resume home meds Labs and medication were reviewed.. Continue same treatment. Continue with symptomatic treatment. Resume home medication. Monitor labs and vitals. DVT and GI prophylaxis. Further recommendations as per clinical course of the patient Dictation was produced using [employer] dictation software. please excuse any grammatical, word or spelling errors. Past Medical History Past Medical History: Diabetes Mellitus, GERD/Reflux, Hyperlipidemia, Hypertension, Osteoarthritis (OA), Seizure Disorder Additional Past Medical History / Comment(s): Alcoholism - none x 22 mos., "bleeding ulcer" x 2 in 2022, tremors - worse when tired or agitated, dry skin lower legs, behind ears History of Any Multi-Drug Resistant Organisms: None Reported Past Surgical History: Adenoidectomy, Cholecystectomy, Orthopedic Surgery, Tonsillectomy Additional Past Surgical History / Comment(s): Left ankle surgery, RK ,cholecystectomy 2022 Past Anesthesia/Blood Transfusion Reactions: No Reported Reaction Additional Past Anesthesia/Blood Transfusion Reaction / Comment(s): states he metabolizes "local" anesthetic very quickly and is very concerned about how this will affect his procedure Past Psychological History: Anxiety, Depression, PTSD Smoking Status: Never smoker Past Alcohol Use History: None Reported Additional Past Alcohol Use History / Comment(s): Has not had alcohol in 22 months. Hx. alcohol abuse. Past Drug Use History: None Reported Additional Drug Use History / Comment(s): Aware no alcohol or Marijuana use 24 hrs prior to procedure. Last used marijuana approx. 1 year ago. - Past Family History Mother Family Medical History: Congestive Heart Failure (CHF) Father Family Medical History: Cancer, CVA/TIA Additional Family Medical History / Comment(s): CVA X2, . Medications and Allergies Home Medications Medication Instructions Recorded Confirmed Type Atorvastatin Calcium [Lipitor] 10 mg PO HS 08/10/21 08/10/24 History Naltrexone HCl [Revia] 50 mg PO HS 08/10/21 08/10/24 History Folic Acid 1 mg PO HS 04/08/23 08/10/24 History Lisinopril-Hctz 10-12.5 mg 1 tab PO HS 04/08/23 08/10/24 History [Zestoretic 10-12.5] Cholecalciferol [Vitamin D3 (125 125 mcg PO HS 09/27/23 08/10/24 History Mcg = 5000 Iu)] lamoTRIgine [LaMICtal] 100 mg PO BID 09/27/23 08/10/24 History Azelastine HCl [Optivar 0.05% 2 drop BOTH EYES DAILY PRN 07/16/24 08/10/24 History Ophth Soln] INSULIN LISPRO (For Pump) [humaLOG 0.01 units SQ-PUMP CONTINUOUS 07/16/24 08/10/24 History (For Pump)] Vitamin E (Dl,Tocopheryl Acet) 400 unit PO HS 07/16/24 08/10/24 History [Vitamin E (400 Iu = 180 mg)] lamoTRIgine [LaMICtal] 25 mg PO BID 07/16/24 08/10/24 History Acetaminophen Tab [Tylenol] 650 mg PO Q6HR PRN tab 07/17/24 08/10/24 Rx Ondansetron Odt [Zofran Odt] 4 mg PO Q8HR PRN #20 tab 07/17/24 08/10/24 Rx Pantoprazole [Protonix] 40 mg PO HS 08/10/24 08/10/24 History Allergies Allergy/AdvReac Type Severity Reaction Status Date / Time divalproex sodium Allergy headache,abd. Verified 08/10/24 18:42 [From Depakote] pain, N/V/diarrhea,tinnitus gadoteridol [From Prohance] AdvReac Nausea & Verified 08/10/24 18:42 Vomiting Physical Exam Vitals: Vital Signs Temp Pulse Pulse Resp BP BP Pulse Ox 08/11/24 07:17 99.4 F 101 H 16 112/56 97 08/11/24 01:20 98.4 F 104 H 17 119/65 94 L 08/10/24 23:04 98.2 F 110 H 18 167/91 98 08/10/24 21:45 98.4 F 110 H 18 145/85 98 05/02/25 21:00 98.3 F 119 H 20 160/90 98 08/10/24 15:51 98.4 F 113 H 18 166/92 96 Intake and Output 08/10/24 08/11/24 08/11/24 22:59 06:59 14:59 Other: Voiding Method Toilet Toilet Weight 101.605 kg Results CBC & Chem 7: 08/11/24 03:53 08/11/24 12:48 Labs: Abnormal Lab Results - Last 24 Hours (Table) 08/10/24 08/10/24 08/11/24 Range/Units 16:36 16:36 03:50 WBC 17.38 H (4.50-10.00) 10*3/uL RBC (4.40-5.60) X 10*6/uL Immature Gran # 0.09 H (0.00-0.04) 10*3/uL Neutrophils # 15.63 H (1.80-7.70) 10*3/uL Lymphocytes # 0.75 L (0.90-5.00) 10*3/uL Sodium 134 L (137-145) mmol/L Chloride 93 L (98-107) mmol/L Carbon Dioxide 17 L 16.1 L (22-30) mmol/L Anion Gap 22.90 H (4.00-12.00) mmol/L Est GFR (CKD-EPI) 58 L (>=60) Glucose 365 H 394 H (74-99) mg/dL POC Glucose (mg/dL) (70-110) mg/dL Total Bilirubin 1.7 H (0.2-1.3) mg/dL Alkaline Phosphatase 157 H (38-126) U/L 08/11/24 08/11/24 08/11/24 Range/Units 03:53 06:05 11:59 WBC 10.37 H (4.50-10.00) 10*3/uL RBC 4.33 L (4.40-5.60) X 10*6/uL Immature Gran # (0.00-0.04) 10*3/uL Neutrophils # 8.86 H (1.80-7.70) 10*3/uL Lymphocytes # 0.69 L (0.90-5.00) 10*3/uL Sodium (137-145) mmol/L Chloride (98-107) mmol/L Carbon Dioxide (22-30) mmol/L Anion Gap (4.00-12.00) mmol/L Est GFR (CKD-EPI) (>=60) Glucose (74-99) mg/dL POC Glucose (mg/dL) 481 H 369 H (70-110) mg/dL Total Bilirubin (0.2-1.3) mg/dL Alkaline Phosphatase (38-126) U/L Thrombosis Risk Factor Assmnt - Choose All That Apply Each Factor Represents 1 point: Age 41-60 years Thrombosis Risk Factor Assessment Total Risk Factor Score: 1 Thrombosis Risk Factor Assessment Level: Low Risk
[2024-08-11 16:40] LABS: Glucose,Whole Blood 233 mg/dL (70-110)
[2024-08-11] MEDS: ATORVASTATIN 10 MG TAB PO SCH (20:07)
[2024-08-11] MEDS: CHOLECALCIFEROL 125 MCG (5000 IU) TABLET PO SCH (20:07)
[2024-08-11] MEDS: NALTREXONE HCL 50 MG TAB PO SCH (20:07)
[2024-08-11] MEDS: FOLIC ACID 1 MG TAB PO SCH (20:07)
[2024-08-11] MEDS: ACETAMINOPHEN TAB 325 MG TAB PO PRN (20:18)
[2024-08-11] MEDS: BENZOCAINE/MENTHOL LOZENG 1 EACH LOZENGE MUCOUS MEM PRN (20:22)
[2024-08-11 21:36] LABS: Glucose,Whole Blood 118 mg/dL (70-110)
[2024-08-12 03:19] LABS: Glucose,Whole Blood 166 mg/dL (70-110)
[2024-08-12 06:24] LABS: Glucose,Whole Blood 168 mg/dL (70-110)
[2024-08-12 07:32] VITALS: BP 143/85; PULSE 76; RESP 17; TEMP 98.2
[2024-08-12 10:48] LABS: Basophils # (A) 0.03 X 10*3/uL (0.00-0.10); Basophils % (A) 0.3 %; Eosinophils # (A) 0.01 X 10*3/uL (0.04-0.35); Eosinophils % (A) 0.1 %; HCT 34.5 % (39.6-50.0); HGB 11.5 g/dL (13.0-17.0); Lymphocytes # (A) 1.73 X 10*3/uL (0.90-5.00); Lymphocytes % (A) 17.6 %; MCHC 33.3 g/dL (32.0-37.0); Mean Platelet Volume 10.2 FL (9.5-12.2); Monocytes # (A) 1.03 X 10*3/uL (0.20-1.00); Monocytes % (A) 10.5 %; NRBC Per 100 WBC 0 X 10*3/uL (0.00-0.01); Neutrophils # (A) 7.01 X 10*3/uL (1.80-7.70); Neutrophils % (A) 71.3 %; Platelet Count 233 X 10*3/uL (140-440); RBC 3.71 X 10*6/uL (4.40-5.60); RDW 13.7 % (11.5-14.5); WBC 9.83 X 10*3/uL (4.50-10.00)
[2024-08-12 11:18] LABS: ALT 20 U/L (10-49); AST 34 U/L (14-35); Albumin 3.5 g/dL (3.8-4.9); Albumin/Globulin Ratio 1.75 Ratio (1.60-3.17); Alkaline Phosphatase 87 U/L (41-126); BUN/Creat Ratio 14.36 Ratio (12.00-20.00); Blood Urea Nitrogen 15.8 mg/dL (9.0-27.0); Calcium 8.5 mg/dL (8.7-10.3); Carbon Dioxide 23.5 mmol/L (21.6-31.8); Chloride 100 mmol/L (96-109); Glucose 175 mg/dL (70-110); Potassium 3.7 mmol/L (3.5-5.5); Sodium 135 mmol/L (135-145); Total Bilirubin 1.5 mg/dL (0.3-1.2); Total Protein 5.5 g/dL (6.2-8.2)
[2024-08-12 11:44] LABS: Glucose,Whole Blood 138 mg/dL (70-110)
--- NOTE | 2024-08-12 13:50 | P.DS ---
Providers Date of admission: 08/10/24 19:55 Expected date of discharge: 08/12/24 Attending physician: Toro Easley Primary care physician: Onelia Oscar DO Hospital Course: Discharge diagnoses; Nausea and vomiting Hyperglycemia Mild DKA History of diabetes mellitus, type II Hypertension Hospital course; patient is a 59-year-old gentleman with past medical history significant for diabetes mellitus, history of alcohol abuse presented the ER because of nausea and vomiting. Patient was recently admitted in July of this year at which time patient had a EGD done that showed mild antral gastritis and LA grade B reflux esophagitis. Patient was apparently in the hospital getting PET scan done when he started having another episode of nausea and vomiting. There was no complaint abdominal pain. There was no complaint of chest pain. Patient denies any shortness of breath. There is no complaint of altered bowel movements. Because of his nausea and vomiting, patient came to the ER Initial lab work done in the ER showed WBC 17.38, hemoglobin 14.8, platelet count 307, sodium 134, potassium 5.1, BUN 16, creatinine 1.18, glucose 365 calcium 10 bilirubin 1.7, alk phos 157 Patient admitted to internal medicine service 08/12. Patient seen and examined. Nausea and vomiting has resolved. Blood sugars better controlled. Patient is willing to go home today. Being discharged on his insulin pump PHYSICAL EXAMINATION: GENERAL: The patient is alert and oriented x3, not in any acute distress. Well developed, well nourished. HEENT: Pupils are round and equally reacting to light. EOMI. No scleral icterus. No conjunctival pallor. Normocephalic, atraumatic. No pharyngeal erythema. No thyromegaly. CARDIOVASCULAR: S1 and S2 present. No murmurs, rubs, or gallops. PULMONARY: Chest is clear to auscultation, no wheezing or crackles. ABDOMEN: Soft, nontender, nondistended, normoactive bowel sounds. No palpable organomegaly. MUSCULOSKELETAL: No joint swelling or deformity. EXTREMITIES: No cyanosis, clubbing, or pedal edema. NEUROLOGICAL: Gross neurological examination did not reveal any focal deficits. SKIN: No rashes. Dictation was produced using [employer] software. please excuse any grammatical, word or spelling errors. Patient Condition at Discharge: Fair Plan - Discharge Summary Discharge Rx Participant: Yes New Discharge Prescriptions: Continue Naltrexone HCl [Revia] 50 mg PO HS Lisinopril-Hctz 10-12.5 mg [Zestoretic 10-12.5] 1 tab PO HS Folic Acid 1 mg PO HS INSULIN LISPRO (For Pump) [humaLOG (For Pump)] 0.01 units SQ-PUMP CONTINUOUS Vitamin E (Dl,Tocopheryl Acet) [Vitamin E (400 Iu = 180 mg)] 400 unit PO HS Acetaminophen Tab [Tylenol] 650 mg PO Q6HR PRN tab PRN Reason: Fever And/ Or Pain Ondansetron Odt [Zofran ODT] 4 mg PO Q8HR PRN #20 tab PRN Reason: Nausea Atorvastatin Calcium [Lipitor] 10 mg PO HS Cholecalciferol [Vitamin D3 (125 Mcg = 5000 Iu)] 125 mcg PO HS lamoTRIgine [LaMICtal] 100 mg PO BID Azelastine HCl [Optivar 0.05% Ophth Soln] 2 drop BOTH EYES DAILY PRN PRN Reason: Allergy Symptoms lamoTRIgine [LaMICtal] 25 mg PO BID Pantoprazole [Protonix] 40 mg PO HS Discharge Medication List Atorvastatin Calcium [Lipitor] 10 mg PO HS 08/10/21 [History] Naltrexone HCl [Revia] 50 mg PO HS 08/10/21 [History] Folic Acid 1 mg PO HS 04/08/23 [History] Lisinopril-Hctz 10-12.5 mg [Zestoretic 10-12.5] 1 tab PO HS 04/08/23 [History] Cholecalciferol [Vitamin D3 (125 Mcg = 5000 Iu)] 125 mcg PO HS 09/27/23 [History] lamoTRIgine [LaMICtal] 100 mg PO BID 09/27/23 [History] Azelastine HCl [Optivar 0.05% Ophth Soln] 2 drop BOTH EYES DAILY PRN 07/16/24 [History] INSULIN LISPRO (For Pump) [humaLOG (For Pump)] 0.01 units SQ-PUMP CONTINUOUS 07/16/24 [History] Vitamin E (Dl,Tocopheryl Acet) [Vitamin E (400 Iu = 180 mg)] 400 unit PO HS 07/16/24 [History] lamoTRIgine [LaMICtal] 25 mg PO BID 07/16/24 [History] Acetaminophen Tab [Tylenol] 650 mg PO Q6HR PRN tab 07/17/24 [Rx] Ondansetron Odt [Zofran ODT] 4 mg PO Q8HR PRN #20 tab 07/17/24 [Rx] Pantoprazole [Protonix] 40 mg PO HS 08/10/24 [History] Follow up Appointment(s)/Referral(s): Onelia Oscar DO [Primary Care Provider] - 1-2 days Patient Instructions/Handouts: Diabetic Ketoacidosis (DC), Acute Nausea and Vomiting (DC) Discharge Disposition: HOME SELF-CARE
== END 2024-08-12 12:35 | disposition home or self-care (01) ==
LOC: EC 15:48 → 4SSUR 19:55
PROVIDERS: ADMIT Hospitalist; ATTEND Hospitalist
DX: E11.10 Type 2 diabetes mellitus with ketoacidosis without coma (principal); E86.0 Dehydration; K52.9 Noninfective gastroenteritis and colitis, unspecified; I10 Essential (primary) hypertension; K21.00 Gastro-esophageal reflux disease with esophagitis, without bleeding; K29.70 Gastritis, unspecified, without bleeding; F10.20 Alcohol dependence, uncomplicated; G89.29 Other chronic pain; M54.9 Dorsalgia, unspecified; Z79.4 Long term (current) use of insulin; Z79.899 Other long term (current) drug therapy; Z88.8 Allergy status to other drugs, medicaments and biological substances; Z90.49 Acquired absence of other specified parts of digestive tract; Z96.41 Presence of insulin pump (external) (internal)
CPT/HCPCS: 96376 ×3; 96361 ×3; 96375 ×3; 96374; 99285; 36415; 80053 ×3; 80048; 83690; 83735 ×2; 84100 ×2; 85025 ×3; 83036; G0378 ×3; J2060; J2270; J0780; J2405 ×2; J2470 ×3

== ENCOUNTER → 2024-08-10 | Outpatient (CLI) | payer OTHER ==
--- NOTE | 2024-08-11 07:30 | NM ---
EXAMINATION TYPE: NM DatScan Brain SPECT DATE OF EXAM: 08/10/2024 COMPARISON: NONE CLINICAL INDICATION: Male, 59 years old with history of R25.1 TREMOR, UNSPECIFIED; TECHNIQUE: 10 drops of Lugol's solution was administered 1 hour prior to injection as a thyroid bloc diandra agent. After the administration of 4.5 mCi I-123 Ioflupane DaTscan. Images obtained [address] injection. SPECT images of the brain were acquired with axial and coronal reconstructions. FINDINGS: The DaTSCAN demonstrates balanced striatal loss to the caudate and putamina nuclei in the striata. This appearance is consistent with the loss of the pre-synaptic dopaminergic terminals. IMPRESSION: This abnormal appearance is supportive of a clinical diagnosis of DLB, idiopathic PD, Parkinson?s dementia complex, or PS. [facility], , 08/11/2024 7:28 AM
== END | disposition home or self-care (01) ==
LOC: RADNMMAIN 10:24
PROVIDERS: ATTEND Psychiatry & Neurology Neurology
DX: R25.1 Tremor, unspecified (principal)
CPT/HCPCS: 78803; A9584

== ENCOUNTER 2024-09-20 07:12 | Observation (INO) | payer OTHER ==
[2024-09-20] MEDS: MORPHINE SULFATE 2 MG/ML SYRINGE IVP STA (07:27)
[2024-09-20] MEDS: METOCLOPRAMIDE 5 MG/ML 2 ML VIAL IVP STA (07:29)
[2024-09-20] MEDS: diphenhydrAMINE 50 MG/ML 1 ML VIAL IVP STA (07:30)
[2024-09-20] MEDS: PANTOPRAZOLE 40 MG/10 ML VIAL IVP STA (07:31)
[2024-09-20] MEDS: SODIUM CHLORIDE 0.9% 1,000 ML IV ONE ×2 (07:32→09:40)
[2024-09-20 07:38] LABS: Basophils # (A) 0.04 10*3/uL (0.00-0.10); Basophils % (A) 0.5 %; Eosinophils # (A) 0.01 10*3/uL (0.04-0.35); Eosinophils % (A) 0.1 %; HCT 41.5 % (39.6-50.0); HGB 14.4 g/dL (13.0-17.0); Lymphocytes # (A) 1.55 10*3/uL (0.90-5.00); Lymphocytes % (A) 18.1 %; MCH 31.9 pg (27.0-32.0); MCHC 34.7 g/dL (32.0-37.0); MCV 91.8 fL (80.0-97.0); Mean Platelet Volume 9.8 fL (9.5-12.2); Monocytes # (A) 0.74 10*3/uL (0.20-1.00); Monocytes % (A) 8.7 %; Neutrophils # (A) 6.18 10*3/uL (1.80-7.70); Neutrophils % (A) 72.4 %; Platelet Count 284 10*3/uL (140-440); RBC 4.52 10*6/uL (4.40-5.60); RDW 13.5 % (11.5-14.5); WBC 8.54 10*3/uL (4.50-10.00)
[2024-09-20 07:59] LABS: ALT 23 U/L (4-49); African American GFR (CKD) >90 (>60 ml/min/1.73 sqM); Albumin 4.4 g/dL (3.5-5.0); Amylase 75 U/L (30-110); Anion Gap 14 mmol/L; Blood Urea Nitrogen 12 mg/dL (9-20); Calcium 9.2 mg/dL (8.4-10.2); Carbon Dioxide 19 mmol/L (22-30); Chloride 106 mmol/L (98-107); Glucose 147 mg/dL (74-99); Lipase 62 U/L (23-300); Non-African American GFR(CKD) 88 (>60 ml/min/1.73 sqM); Sodium 139 mmol/L (137-145); Total Bilirubin 1.7 mg/dL (0.2-1.3); Total Protein 7.1 g/dL (6.3-8.2)
[2024-09-20 08:05] LABS: INR 0.9 (<1.2); Partial Thromboplastin Time 21.7 sec (22.0-30.0); Prothrombin Time 10.5 sec (10.0-12.5)
--- NOTE | 2024-09-20 08:05 | XR ---
EXAMINATION TYPE: XR chest 1V portable DATE OF EXAM: 09/20/2024 8:01 AM COMPARISON: Chest radiographs from 08/27/2021 CLINICAL INDICATION: Male, 59 years old with history of abdominal pain; [facility] TECHNIQUE: XR chest 1V portable Frontal view of the chest. FINDINGS: Lungs/Pleura: There is no evidence of pleural effusion, focal consolidation, or pneumothorax. Pulmonary vascularity: Unremarkable. Heart/mediastinum: Cardiomediastinal silhouette is unremarkable. Musculoskeletal: No acute osseous pathology. Other findings: None IMPRESSION: No acute cardiopulmonary disease/process. [facility], , 09/20/2024 8:02 AM
[2024-09-20 08:10] LABS: AST 43 U/L (17-59); Alkaline Phosphatase 136 U/L (38-126); Potassium 4.2 mmol/L (3.5-5.1)
[2024-09-20 08:29] LABS: Influenza A Not Detected (Not Detectd); Influenza B Not Detected (Not Detectd); RSV Not Detected (Not Detectd)
[2024-09-20 08:50] LABS: VBG PH 7.51 (7.31-7.41)
--- NOTE | 2024-09-20 08:59 | CT ---
EXAMINATION TYPE: CT abdomen pelvis w con DATE OF EXAM: 09/20/2024 8:48 AM COMPARISON: None. CLINICAL INDICATION: Male, 59 years old with history of abdominal pain. mostly upper with n/v/d, Abdo ahsan pain, mostly upper with n/v/d. TECHNIQUE: Axial images were obtained from above the diaphragm to the pubic rami in the axial plane a t 5 mm thick sections. Reconstructed images are reviewed on the computer in the coronal plane. CONTRAST: 100 ml mL of Isovue 300. Study performed without Oral Contrast DLP: 1171.7 mGycm, Automated exposure control for dose reduction was used. FINDINGS: Limited CT sections are obtained the lung bases. The lung bases are clear. Coronary artery calcific ations present. CT ABDOMEN: Liver: Some mild fatty infiltration present Spleen: Normal Pancreas: Atrophic Adrenal glands: The adrenal glands are normal. Gallbladder: Surgically absent Kidneys: No masses are evident. No hydronephrosis is present. No cysts are present. Delayed images were obtained through the kidneys, which remain unremarkable. Aorta: Vascular calcification is within the aorta. Inferior vena cava: Normal. CT PELVIS: There is left anterior wall hernia containing mesenteric fat within the upper pelvis. Seri es 201 image 49. No loops of bowel are involved. Loops of bowel within the abdomen and pelvis are normal. Study is without oral contrast limiting bowel evaluation. No suspicious dilated loops of bowel are evident. Appendix: Normal as visualized. Urinary bladder: Normal. Genitourinary structures: Prostate is prominent. Osseous structures: No suspicious lytic or sclerotic lesions. IMPRESSION: 1. No suspicious abnormality to account for patient's symptoms [facility], , 09/20/2024 8:56 AM
--- NOTE | 2024-09-20 09:19 | ED ---
General Adult HPI - General Chief complaint: Nausea/Vomiting/Diarrhea Stated complaint: N/V/D Time Seen by Provider: 09/20/24 07:12 Source: patient, EMS, RN notes reviewed, old records reviewed Mode of arrival: EMS - History of Present Illness Initial comments: Patient is a 59-year-old male who presents emergency department complaining of intractable nausea and vomiting. Does have a history of this. Recently was scoped by Dr. Younger which revealed gastritis but no evidence of acute bleeding process. Patient was transferred to [facility] recently for upper GI bleed with this emesis which currently is not ongoing. Workup at that time was unremarkable. Presents for further evaluation at this time. Does have a history of diabetes, prior alcoholism but he is currently approximately 30 months sober. Also has a history of a bleeding ulcer. History of hypertension, hyperlipidemia. Patient received Zofran on the way to the hospital which is not improving his symptoms. He is asking for more nausea meds. States he has had numerous episodes of ileus emesis. Does have a history of a cholecystectomy. Denies any diarrhea or constipation. Endorses just generalized abdominal discomfort. Denies chest pain or shortness of breath. Presents for further evaluation at this time.Denies any dark emesis. Denies any coffee-ground emesis. Denies any bright red blood per rectum or bright red blood is hematemesis. He is not on blood thinners. - Related Data Home Medications Medication Instructions Recorded Confirmed Atorvastatin Calcium [Lipitor] 10 mg PO HS 08/10/21 09/20/24 Naltrexone HCl [Revia] 50 mg PO DAILY 08/10/21 09/20/24 Folic Acid 1 mg PO DAILY 04/08/23 09/20/24 Lisinopril-Hctz 10-12.5 mg 1 tab PO DAILY 04/08/23 09/20/24 [Zestoretic 10-12.5] Cholecalciferol [Vitamin D3 (125 125 mcg PO DAILY 09/27/23 09/20/24 Mcg = 5000 Iu)] lamoTRIgine [LaMICtal] 100 mg PO BID 09/27/23 09/20/24 Azelastine HCl [Optivar 0.05% 1 drop BOTH EYES BID 07/16/24 09/20/24 Preston Thomason] INSULIN LISPRO (For Pump) [humaLOG 0.01 units SQ-PUMP CONTINUOUS 07/16/24 09/20/24 (For Pump)] lamoTRIgine [LaMICtal] 25 mg PO BID 07/16/24 09/20/24 Pantoprazole [Protonix] 40 mg PO BID 08/10/24 09/20/24 Albuterol Inhaler [Ventolin Hfa 2 puff INHALATION RT-Q6H PRN 09/20/24 09/20/24 Inhaler] Ammonium Lactate Cream [Lac-Hydrin 1 applic TOPICAL DAILY 09/20/24 09/20/24 12% Cream] Aspirin EC [Ecotrin Low Dose] 81 mg PO DAILY 09/20/24 09/20/24 Glucagon [Gvoke Pfs 1-Pack Syringe] 1 mg SQ ONCE PRN 09/20/24 09/20/24 Sucralfate [Carafate] 1 gm PO ACHS 09/20/24 09/20/24 bisacodyL 10 mg RECTAL DAILY PRN 09/20/24 09/20/24 ondansetron HCL [Zofran] 8 mg PO Q12HR PRN 09/20/24 09/20/24 Allergies Allergy/AdvReac Type Severity Reaction Status Date / Time divalproex sodium Allergy headache,abd. Verified 09/20/24 11:54 [From Depakote] pain, N/V/diarrhea,tinnitus gadoteridol [From Prohance] AdvReac Nausea & Verified 09/20/24 11:54 Vomiting Review of Systems ROS Statement: Those systems with pertinent positive or pertinent negative responses have been documented in the HPI. Review of Systems: CONST: Denies fever EYES: Denies blurry vision ENT: Denies nasal congestion C/V: Denies Chest pain RESP: Denies shortness of breath GI: Endorses generalized abdominal pain, nausea vomiting diarrhea : Denies dysuria SKIN: Denies rash. MSK: Denies joint pain. NEURO: Denies headache ROS Other: All systems not noted in ROS Statement are negative. Past Medical History Past Medical History: Diabetes Mellitus, GERD/Reflux, Hyperlipidemia, Hypertension, Osteoarthritis (OA), Seizure Disorder Additional Past Medical History / Comment(s): Alcoholism - none x 16 mos., "bleeding ulcer" x 2 in 2022, tremors - worse when tired or agitated, NEW O[place]ET SEIZURE DISORDER-last seizure 1-25-24, dry skin lower legs, behind ears History of Any Multi-Drug Resistant Organisms: None Reported Past Surgical History: Adenoidectomy, Cholecystectomy, Orthopedic Surgery, Tonsillectomy Additional Past Surgical History / Comment(s): Left ankle surgery, RK ,cholecystectomy 2022 Past Anesthesia/Blood Transfusion Reactions: No Reported Reaction Additional Past Anesthesia/Blood Transfusion Reaction / Comment(s): states he metabolizes "local" anesthetic very quickly and is very concerned about how this will affect his procedure Past Psychological History: Anxiety, Depression, PTSD Smoking Status: Never smoker Past Alcohol Use History: None Reported Past Drug Use History: None Reported - Past Family History Mother Family Medical History: Congestive Heart Failure (CHF) Father Family Medical History: Cancer, CVA/TIA Additional Family Medical History / Comment(s): CVA X2, . General Exam - General Exam Comments Initial Comments: General: Appears in mild distress actively throwing up bilious emesis HEAD: Normal with no signs of head trauma. EYES: PERRLA, EOMI, conjunctiva normal, no discharge. ENT: Hearing grossly intact, normal oropharynx. Dry mucous membranes. RESPIRATORY: Clear breath sounds bilaterally. No wheezes, rales, or rhonchi. C/V: Regular rate and rhythm. S1 and S2 auscultated, no edema, peripheral pulses 2+ and intact throughout ABD: Abdomen soft, nondistended. Generalized abdominal discomfort, primarily in the epigastric region. No guarding or rebound tenderness. No peritoneal signs. EXT: Normal range of motion, no obvious deformity SKIN: No rashes or lesions observed on exposed skin. NEURO: Alert and oriented x 4. Course Vital Signs 09/20/24 09/20/24 09/20/24 07:14 09:45 11:55 Temperature 98 F Pulse Rate 101 H 94 94 Respiratory 18 18 16 Rate Blood Pressure 183/103 167/84 126/75 O2 Sat by Pulse 98 99 98 Oximetry 09/20/24 13:48 Temperature Pulse Rate 88 Respiratory 16 Rate Blood Pressure 123/72 O2 Sat by Pulse 99 Oximetry Medical Decision Making - Medical Decision Making Was pt. sent in by a medical professional or institution (, PA, COLLATERAL SPECIALIST, urgent care, hospital, or fpc...) When possible be specific @ -No Did you speak to anyone other than the patient for history (EMS, parent, family, police, friend...)? What history was obtained from this source @ -No Did you review nursing and triage notes (agree or disagree)? Why? @ -I reviewed and agree with nursing and triage notes Were old charts reviewed (outside hosp., previous admission, EMS record, old EKG, old radiological studies, urgent care reports/EKG's, fpc records)? Report findings @ -Reviewed chart from August 2024 including EKG which shows no obvious acute ch cailin compared with today's EKG. Differential Diagnosis (chest pain, altered mental status, abdominal pain women, abdominal pain men, vaginal bleeding, weakness, fever, dyspnea, syncope, headache, dizziness, GI bleed, back pain, seizure, CVA, palpatations, mental health, musculoskeletal)? @ -Differential Abdominal Pain Men: Appendicitis, cholecystitis, diverticulosis, ischemic bowel, pancreatitis, hepatitis, UTI, gastroenteritis, AAA, incarcerated hernia, bowel obstruction, constipation, inflammatory bowel, hepatitis, peptic ulcer disease, splenic infarction, perforated viscus, testicular torsion, this is not meant to be an all-inclusive list EKG interpreted by me (3pts min.). @ -As above X-rays interpreted by me (1pt min.). @ -Chest x-ray reveals no obvious acute cardiopulmonary process. CT interpreted by me (1pt min.). @ -CT abdomen pelvis reveals no obvious acute intra-abdominal process. U/S interpreted by me (1pt. min.). @ -None done What testing was considered but not performed or refused? (CT, X-rays, U/S, labs)? Why? @ -None What meds were considered but not given or refused? Why? @ -None Did you discuss the management of the patient with other professionals (elza aldana i.e. , PA, COLLATERAL SPECIALIST, lab, RT, psych nurse, child protective services social worker, marketing budget analyst, teacher, bank compliance officer, director of casework)? Give summary @ -I spoke with the admitting provider, ABNER Layton of [facility] who accepted the a dmission. Was smoking cessation discussed for >3mins.? @ -No Was critical care preformed (if so, how long)? @ -No Were there social determinants of health that impacted care today? How? (Homelessness, low income, unemployed, alcoholism, drug addiction, transportation, low edu. Level, literacy, decrease access to med. care, long-term, rehab)? @ -No Was there de-escalation of care discussed even if they declined (Discuss DNR or withdrawal of care, Hospice)? DNR status @ -No What co-morbidities impacted this encounter? (DM, HTN, Smoking, COPD, CAD, Cancer, CVA, ARF, Chemo, Hep., AIDS, mental health diagnosis, sleep apnea, morbid obesity)? @ -Gastritis, history of intractable nausea and vomiting, history of bleeding gastric ulcer, remote history of alcohol abuse Was patient admitted / discharged? Hospital course, mention meds given and route, prescriptions, significant lab abnormalities, going to OR and other pertinent info. @ -Presents emergency department with intractable nausea and vomiting. Has been ongoing since last night. Does have a history of bleeding ulcer but does not appear to have any bloody emesis this time around. It is bilious and I can see it is bright green in nature. I will receive nausea meds on the way here which are not helping and therefore patient will be administered additional Benadryl and Reglan. He was in agreement this plan. Vital signs are within acceptable limits. Patient also administered IV fluids, Protonix, analgesia medications. He was in agreement this plan. Laboratory studies returned remarkable for dehydration with a lactic acidosis of 3.4 likely from the numerous episodes of emesis. Patient has positive acetone's however no evidence of DKA. Patient's blood sugar is within acceptable limits. Acetone likely elevated from the emesis. Continue to monitor. No anion gap metabolic acidosis at this time. Imaging returned negative for any obvious acute process. EKG unremarkable. On reevaluation, patient still feeling mildly nauseous and will be administered Zofran. At this time, we will observe the patient overnight for intractable nausea and vomiting and abdominal pain. Dr. Cole gastroenterology will be consulted. He was in agreement this plan. I spoke with the admitting provider, ABNER Layton of [facility] who accepted the admission. Undiagnosed new problem with uncertain prognosis? @ -No Drug Therapy requiring intensive monitoring for toxicity (Heparin, Nitro, Insulin, Cardizem)? @ -No Were any procedures done? @ -No Diagnosis/symptom? @ -Intractable abdominal pain, intractable nausea and vomiting with dehydration Acute, or Chronic, or Acute on Chronic? @ -Acute Uncomplicated (without systemic symptoms) or Complicated (systemic symptoms)? @ -Complicated Side effects of treatment? @ -No Exacerbation, Progression, or Severe Exacerbation? @ -No Poses a threat to life or bodily function? How? (Chest pain, [place], [place], pneumonia, PE, COPD, DKA, ARF, appy, cholecystitis, CVA, Diverticulitis, Homicidal, Katerin cidal, threat to staff... and all critical care pts) @ -Potentially, yes - Lab Data Result diagrams: 09/20/24 07:26 09/20/24 07: Lab Results 09/20/24 09/20/24 09/20/24 Range/Units 07:26 07: 07:26 WBC 8.54 (4.50-10.00) 10*3/uL RBC 4.52 (4.40-5.60) 10*6/uL Hgb 14.4 (13.0-17.0) g/dL Hct 41.5 (39.6-50.0) % MCV 91.8 (80.0-97.0) fL MCH 31.9 (27.0-32.0) pg MCHC 34.7 (32.0-37.0) g/dL Plt Count 284 (140-440) 10*3/uL MPV 9.8 (9.5-12.2) fL Immature Gran % (Auto) 0.2 % Neutrophils % 72.4 % Lymphocytes % 18.1 % Monocytes % 8.7 % Eosinophils % 0.1 % Basophils % 0.5 % Immature Gran # 0.02 (0.00-0.04) 10*3/uL Neutrophils # 6.18 (1.80-7.70) 10*3/uL Lymphocytes # 1.55 (0.90-5.00) 10*3/uL Monocytes # 0.74 (0.20-1.00) 10*3/uL Eosinophils # 0.01 L (0.04-0.35) 10*3/uL Basophils # 0.04 (0.00-0.10) 10*3/uL PT 10.5 (10.0-12.5) sec INR 0.9 (<1.2) APTT 21.7 L (22.0-30.0) sec VBG pH (7.31-7.41) VBG pCO2 (37-51) mmHg VBG HCO3 (24-28) mmol/L Sodium 139 (137-145) mmol/L Potassium 4.2 (3.5-5.1) mmol/L Chloride 106 (98-107) mmol/L Carbon Dioxide 19 L (22-30) mmol/L Anion Gap 14 mmol/L BUN 12 (9-20) mg/dL Creatinine 0.95 (0.66-1.25) mg/dL Est GFR (CKD-EPI)AfAm >90 (>60 ml/min/1.73 sqM) Est GFR (CKD-EPI)NonAf 88 (>60 ml/min/1.73 sqM) Glucose 147 H (74-99) mg/dL Lactic Ac Sepsis Rflx Plasma Lactic Acid Gerald (0.7-2.0) mmol/L Calcium 9.2 (8.4-10.2) mg/dL Total Bilirubin 1.7 H (0.2-1.3) mg/dL AST 43 (17-59) U/L ALT 23 (4-49) U/L Alkaline Phosphatase 136 H (38-126) U/L Total Protein 7.1 (6.3-8.2) g/dL Albumin 4.4 (3.5-5.0) g/dL Amylase 75 (30-110) U/L Lipase 62 (23-300) U/L Urine Color Urine Appearance (Clear) Urine pH (5.0-8.0) Ur Specific [place] (1.001-1.035) Urine Protein (Negative) Urine Glucose (UA) (Negative) Urine Ketones (Negative) Urine Blood (Negative) Urine Nitrite (Negative) Urine Bilirubin (Negative) Urine Urobilinogen (<2.0) mg/dL Ur Leukocyte Esterase (Negative) Urine RBC (0-5) /hpf Urine WBC (0-5) /hpf Ur Squamous Epith Cells (0-4) /hpf Urine Bacteria (None) /hpf Hyaline Casts (0-2) /lpf Urine Mucus (None) /hpf Acetone, Qual (Negative) Influenza Type A (PCR) (Not Detectd) Influenza Type B (PCR) (Not Detectd) RSV (PCR) (Not Detectd) SARS-CoV-2 (PCR) (Not Detectd) 09/20/24 09/20/24 09/20/24 Range/Units 07:26 07:46 08:13 WBC (4.50-10.00) 10*3/uL RBC (4.40-5.60) 10*6/uL Hgb (13.0-17.0) g/dL Hct (39.6-50.0) % MCV (80.0-97.0) fL MCH (27.0-32.0) pg MCHC (32.0-37.0) g/dL Plt Count (140-440) 10*3/uL MPV (9.5-12.2) fL Immature Gran % (Auto) % Neutrophils % % Lymphocytes % % Monocytes % % Eosinophils % % Basophils % % Immature Gran # (0.00-0.04) 10*3/uL Neutrophils # (1.80-7.70) 10*3/uL Lymphocytes # (0.90-5.00) 10*3/uL Monocytes # (0.20-1.00) 10*3/uL Eosinophils # (0.04-0.35) 10*3/uL Basophils # (0.00-0.10) 10*3/uL PT (10.0-12.5) sec INR (<1.2) APTT (22.0-30.0) sec VBG pH (7.31-7.41) VBG pCO2 (37-51) mmHg VBG HCO3 (24-28) mmol/L Sodium (137-145) mmol/L Potassium (3.5-5.1) mmol/L Chloride (98-107) mmol/L Carbon Dioxide (22-30) mmol/L Anion Gap mmol/L BUN (9-20) mg/dL Creatinine (0.66-1.25) mg/dL Est GFR (CKD-EPI)AfAm (>60 ml/min/1.73 sqM) Est GFR (CKD-EPI)NonAf (>60 ml/min/1.73 sqM) Glucose (74-99) mg/dL Lactic Ac Sepsis Rflx Y Plasma Lactic Acid Gerald 3.4 H* (0.7-2.0) mmol/L Calcium (8.4-10.2) mg/dL Total Bilirubin (0.2-1.3) mg/dL AST (17-59) U/L ALT (4-49) U/L Alkaline Phosphatase (38-126) U/L Total Protein (6.3-8.2) g/dL Albumin (3.5-5.0) g/dL Amylase (30-110) U/L Lipase (23-300) U/L Urine Color Urine Appearance (Clear) Urine pH (5.0-8.0) Ur Specific [place] (1.001-1.035) Urine Protein (Negative) Urine Glucose (UA) (Negative) Urine Ketones (Negative) Urine Blood (Negative) Urine Nitrite (Negative) Urine Bilirubin (Negative) Urine Urobilinogen (<2.0) mg/dL Ur Leukocyte Esterase (Negative) Urine RBC (0-5) /hpf Urine WBC (0-5) /hpf Ur Squamous Epith Cells (0-4) /hpf Urine Bacteria (None) /hpf Hyaline Casts (0-2) /lpf Urine Mucus (None) /hpf Acetone, Qual (Negative) Influenza Type A (PCR) Not Detected (Not Detectd) Influenza Type B (PCR) Not Detected (Not Detectd) RSV (PCR) Not Detected (Not Detectd) SARS-CoV-2 (PCR) Not Detected (Not Detectd) 09/20/24 09/20/24 09/20/24 Range/Units 08:30 08:52 09:51 WBC (4.50-10.00) 10*3/uL RBC (4.40-5.60) 10*6/uL Hgb (13.0-17.0) g/dL Hct (39.6-50.0) % MCV (80.0-97.0) fL MCH (27.0-32.0) pg MCHC (32.0-37.0) g/dL Plt Count (140-440) 10*3/uL MPV (9.5-12.2) fL Immature Gran % (Auto) % Neutrophils % % Lymphocytes % % Monocytes % % Eosinophils % % Basophils % % Immature Gran # (0.00-0.04) 10*3/uL Neutrophils # (1.80-7.70) 10*3/uL Lymphocytes # (0.90-5.00) 10*3/uL Monocytes # (0.20-1.00) 10*3/uL Eosinophils # (0.04-0.35) 10*3/uL Basophils # (0.00-0.10) 10*3/uL PT (10.0-12.5) sec INR (<1.2) APTT (22.0-30.0) sec VBG pH 7.51 H (7.31-7.41) VBG pCO2 31 L (37-51) mmHg VBG HCO3 25 (24-28) mmol/L Sodium (137-145) mmol/L Potassium (3.5-5.1) mmol/L Chloride (98-107) mmol/L Carbon Dioxide (22-30) mmol/L Anion Gap mmol/L BUN (9-20) mg/dL Creatinine (0.66-1.25) mg/dL Est GFR (CKD-EPI)AfAm (>60 ml/min/1.73 sqM) Est GFR (CKD-EPI)NonAf (>60 ml/min/1.73 sqM) Glucose (74-99) mg/dL Lactic Ac Sepsis Rflx Plasma Lactic Acid Gerald (0.7-2.0) mmol/L Calcium (8.4-10.2) mg/dL Total Bilirubin (0.2-1.3) mg/dL AST (17-59) U/L ALT (4-49) U/L Alkaline Phosphatase (38-126) U/L Total Protein (6.3-8.2) g/dL Albumin (3.5-5.0) g/dL Amylase (30-110) U/L Lipase (23-300) U/L Urine Color Yellow Urine Appearance Clear (Clear) Urine pH 8.0 (5.0-8.0) Ur Specific [place] >1.050 H (1.001-1.035) Urine Protein Trace H (Negative) Urine Glucose (UA) 1+ H (Negative) Urine Ketones 2+ H (Negative) Urine Blood Trace H (Negative) Urine Nitrite Negative (Negative) Urine Bilirubin Negative (Negative) Urine Urobilinogen <2.0 (<2.0) mg/dL Ur Leukocyte Esterase Negative (Negative) Urine RBC 5 (0-5) /hpf Urine WBC 2 (0-5) /hpf Ur Squamous Epith Cells 2 (0-4) /hpf Urine Bacteria Rare H (None) /hpf Hyaline Casts 1 (0-2) /lpf Urine Mucus Rare H (None) /hpf Acetone, Qual Positive (Negative) Influenza Type A (PCR) (Not Detectd) Influenza Type B (PCR) (Not Detectd) RSV (PCR) (Not Detectd) SARS-CoV-2 (PCR) (Not Detectd) - EKG Data -: EKG Interpreted by Me EKG Comments: 12-lead Electrocardiogram Interpretation Note EKG was reviewed and interpreted by myself. 12-lead ECG performed at 0746 is interpreted by me as revealing normal sinus rhythm at a rate of 98 beats per minute. Godley is normal. VA interval is 221 ms, QRS durations 81 ms, QTc is 443 ms.. There were no ST or T wave abnormalities to suggest myocardial ischemia or injury. R wave progression across the precordium was satisfactory. By my interpretation this EKG is non-diagnostic for acute ischemia. Compared with EKG from September 08, 2024 with no acute significant change. Disposition Clinical Impression: Intractable abdominal pain, Intractable nausea and vomiting, Dehydration Disposition: ADMITTED IP TO THIS HOSP Condition: Stable Time of Disposition: 09:19
[2024-09-20] MEDS: ONDANSETRON 4 MG/2 ML VIAL IVP STA (09:38)
[2024-09-20] MEDS: SODIUM CHLORIDE 0.9% 1,000 ML IV STA (09:41)
[2024-09-20] MEDS ORDERED: ONDANSETRON 4 MG/2 ML VIAL IVP PRN (09:53)
[2024-09-20] MEDS ORDERED: NALOXONE 0.4 MG/ML 1 ML VIAL IV PRN (09:53)
[2024-09-20 11:02] LABS: Appearance,Urine Clear (Clear); Bacteria,Urine Rare /hpf; Bilirubin,Urine Negative (Negative); Blood,Urine Trace (Negative); Color,Urine Yellow; Hyaline Casts,Urine 1 /lpf (0-2); Leukocyte Esterase,Urine Negative (Negative); Mucus,Urine Rare /hpf; Nitrite,Urine Negative (Negative); Protein,Urine Trace (Negative); RBC,Urine 5 /hpf (0-5); Squamous Epithelial Cell,Urine 2 /hpf (0-4); Urobilinogen,Urine <2.0 mg/dL (<2.0); WBC,Urine 2 /hpf (0-5)
[2024-09-20 11:06] LABS: Ketones,Urine 2+ (Negative); Specific Gravity,Urine >1.050 (1.001-1.035)
[2024-09-20 11:07] LABS: Glucose,Urine (UA) 1+ (Negative)
[2024-09-20] MEDS ORDERED: ALBUTEROL NEBULIZED 2.5 MG/3 ML INHALATION PRN (12:15)
[2024-09-20] MEDS ORDERED: ONDANSETRON ODT 8 MG TAB.RAPDIS PO PRN (12:15)
[2024-09-20] MEDS ORDERED: bisacodyL 10 MG SUPP RECTAL PRN (12:15)
[2024-09-20] MEDS: SUCRALFATE 1 GM TAB PO SCH (12:54)
[2024-09-20] MEDS: SODIUM CHLORIDE 0.9% 1,000 ML IV SCH (12:55)
--- NOTE | 2024-09-20 15:02 | P.CONS ---
History of Present Illness - Reason for Consult Consult date: 09/20/24 History of ulcers/gastritis, intractable vomiting Requesting physician: Miles Null - Chief Complaint Nausea and vomiting - History of Present Illness This is a pleasant 59-year-old male with multiple hospitalizations for nausea and vomiting. He has a history of diabetes mellitus, seizure disorder alcohol abuse, chronic nausea and vomiting and abdominal pain who presents to the hospital with complaints of abdominal pain nausea and vomiting. Gastroenterology was consulted for nausea and vomiting and abdominal pain. Patient has had multiple upper endoscopies recently including being seen here with gastroenterology for nausea and vomiting and underwent upper endoscopy on 07/17/2024 with findings of mild antral gastritis and LA grade B reflux esophagitis. Recommended to continue 40 mg daily and antiemetics as needed and follow-up in 2 to 3 weeks. Patient states he never followed up with gastroenterology. States he has been taking his Protonix daily as prescribed. States he is not drinking and has not had any alcohol for 30 months. He was seen again in the emergency department for nausea and vomiting on 09-02 again reports that this is persistent and ongoing for months bilious vomiting without any coffee-ground emesis or hematemesis. He was admitted overnight and sent home. Again came into the emergency department on 09/08/2024 again with reports of nausea and vomiting at this time he had reported dark emesis and he was transferred to [facility]. Patient states he had upper endoscopy. No results at this time. Patient states that he does not eat much. Secondary to timing of his medications. He denies any new medications. Patient has severe tremors at this time. He seems very anxious and restless. Asking for something cold to drink and popsicles. He denies any hematemesis or coffee- ground emesis at this time. Mostly vomiting bile. Review of Systems REVIEW OF SYSTEMS: CARDIOPULMONARY: No chest pain or shortness of breath. Gastrointestinal: Epigastric abdominal pain. Nausea and vomiting. No hematemesis, coffee-ground emesis. No rectal bleeding, or melena. GENITOURINARY: No dysuria or hematuria. MUSCULOSKELETAL: Reports normal range of motion., Joint pain. SKIN: No rashes. No jaundice. ENDOCRINE: No chills, fevers. No excessive weight gain or loss. No polydipsia or polyuria. PSYCHIATRIC: Unremarkable. NEUROLOGY: No change in mental status. Denies dizziness, headache. ENT: Vision unremarkable. CONSTITUTIONAL: No recent weight loss. No fever, chills, night sweats. Past Medical History Past Medical History: Diabetes Mellitus, GERD/Reflux, Hyperlipidemia, Hypertension, Osteoarthritis (OA), Seizure Disorder Additional Past Medical History / Comment(s): Alcoholism - none x 16 mos., "bleeding ulcer" x 2 in 2022, tremors - worse when tired or agitated, NEW [place] SEIZURE DISORDER-last seizure 05-05-23, dry skin lower legs, behind ears History of Any Multi-Drug Resistant Organisms: None Reported Past Surgical History: Adenoidectomy, Cholecystectomy, Orthopedic Surgery, Tonsillectomy Additional Past Surgical History / Comment(s): Left ankle surgery, RK ,cholecystectomy 2022 Past Anesthesia/Blood Transfusion Reactions: No Reported Reaction Additional Past Anesthesia/Blood Transfusion Reaction / Comm: states he metabolizes "local" anesthetic very quickly and is very concerned about how this will affect his procedure Past Psychological History: Anxiety, Depression, PTSD Smoking Status: Never smoker Past Alcohol Use History: None Reported Past Drug Use History: None Reported - Past Family History Mother Family Medical History: Congestive Heart Failure (CHF) Father Family Medical History: Cancer, CVA/TIA Additional Family Medical History / Comment(s): CVA X2, . Medications and Allergies Home Medications Medication Instructions Recorded Confirmed Type Atorvastatin Calcium [Lipitor] 10 mg PO HS 08/10/21 09/20/24 History Naltrexone HCl [Revia] 50 mg PO DAILY 08/10/21 09/20/24 History Folic Acid 1 mg PO DAILY 04/08/23 09/20/24 History Lisinopril-Hctz 10-12.5 mg 1 tab PO DAILY 04/08/23 09/20/24 History [Zestoretic 10-12.5] Cholecalciferol [Vitamin D3 (125 125 mcg PO DAILY 09/27/23 09/20/24 History Mcg = 5000 Iu)] lamoTRIgine [LaMICtal] 100 mg PO BID 09/27/23 09/20/24 History Azelastine HCl [Optivar 0.05% 1 drop BOTH EYES BID 07/16/24 09/20/24 History Ophth Soln] INSULIN LISPRO (For Pump) [humaLOG 0.01 units SQ-PUMP CONTINUOUS 07/16/24 09/20/24 History (For Pump)] lamoTRIgine [LaMICtal] 25 mg PO BID 07/16/24 09/20/24 History Pantoprazole [Protonix] 40 mg PO BID 08/10/24 09/20/24 History Albuterol Inhaler [Ventolin Hfa 2 puff INHALATION RT-Q6H PRN 09/20/24 09/20/24 History Inhaler] Ammonium Lactate Cream [Lac-Hydrin 1 applic TOPICAL DAILY 09/20/24 09/20/24 History 12% Cream] Aspirin EC [Ecotrin Low Dose] 81 mg PO DAILY 09/20/24 09/20/24 History Glucagon [Gvoke Pfs 1-Pack Syringe] 1 mg SQ ONCE PRN 09/20/24 09/20/24 History Sucralfate [Carafate] 1 gm PO ACHS 09/20/24 09/20/24 History bisacodyL 10 mg RECTAL DAILY PRN 09/20/24 09/20/24 History ondansetron HCL [Zofran] 8 mg PO Q12HR PRN 09/20/24 09/20/24 History Allergies Allergy/AdvReac Type Severity Reaction Status Date / Time divalproex sodium Allergy headache,abd. Verified 09/20/24 11:54 [From Depakote] pain, N/V/diarrhea,tinnitus gadoteridol [From Prohance] AdvReac Nausea & Verified 09/20/24 11:54 Vomiting Physical Exam Vitals: Vital Signs Temp Pulse Resp BP Pulse Ox 09/20/24 09:45 94 18 167/84 99 09/20/24 07:14 98 F 101 H 18 183/103 98 Intake and Output 09/19/24 09/20/24 09/20/24 22:59 06:59 14:59 Other: Weight 99.79 kg General appearance: The patient is alert, oriented, patient is very shaky/tremors, appears anxious and restless, appears in no acute distress. HET: Head is normocephalic and atraumatic. Conjunctiva pink. Sclera anicteric. Neck: Supple without lymphadenopathy. Trachea midline. Heart: Regular. Lungs: Equal expansion, normal respiratory effort. Abdomen: Soft, mild epigastric tenderness, nondistended. Skin: No rashes. No jaundice. Extremities: Normal skin color and turgor. No pedal edema. Neurological: No focal deficits. Alert and oriented x3. Results CBC & Chem 7: 09/20/24 07:26 09/20/24 07:26 Labs: Abnormal Lab Results - Last 24 Hours (Table) 09/20/24 09/20/24 09/20/24 Range/Units 07:26 07:26 07:26 Eosinophils # 0.01 L (0.04-0.35) 10*3/uL APTT 21.7 L (22.0-30.0) sec VBG pH (7.31-7.41) VBG pCO2 (37-51) mmHg Carbon Dioxide 19 L (22-30) mmol/L Glucose 147 H (74-99) mg/dL Plasma Lactic Acid Gerald (0.7-2.0) mmol/L Total Bilirubin 1.7 H (0.2-1.3) mg/dL Alkaline Phosphatase 136 H (38-126) U/L Ur Specific [place] (1.001-1.035) Urine Protein (Negative) Urine Glucose (UA) (Negative) Urine Ketones (Negative) Urine Blood (Negative) Urine Bacteria (None) /hpf Urine Mucus (None) /hpf 09/20/24 09/20/24 09/20/24 Range/Units 07:26 08:30 09:51 Eosinophils # (0.04-0.35) 10*3/uL APTT (22.0-30.0) sec VBG pH 7.51 H (7.31-7.41) VBG pCO2 31 L (37-51) mmHg Carbon Dioxide (22-30) mmol/L Glucose (74-99) mg/dL Plasma Lactic Acid Gerald 3.4 H* (0.7-2.0) mmol/L Total Bilirubin (0.2-1.3) mg/dL Alkaline Phosphatase (38-126) U/L Ur Specific [place] >1.050 H (1.001-1.035) Urine Protein Trace H (Negative) Urine Glucose (UA) 1+ H (Negative) Urine Ketones 2+ H (Negative) Urine Blood Trace H (Negative) Urine Bacteria Rare H (None) /hpf Urine Mucus Rare H (None) /hpf Assessment and Plan (1) Nausea & vomiting Narrative/Plan: 89-year-old with chronic intractable nausea and vomiting for several months has had multiple endoscopic evaluations in the last couple months. Last 1 most r soumya was transferred from this hospital on 09/08/2024 for coffee-ground emesis to [facility]. Apparently patient had undergone upper endoscopy results are not available at this time. Records were requested. Prior to that he was evaluated here by gastroenterology and we did upper endoscopy finding gastritis and esophagitis with recommendation for Protonix 40 mg daily. Patient is a 30-year diabetic who presented with positive acetone likely secondary to diabetic ketoacidosis. Nausea and vomiting may be secondary to gastroparesis from diabetes mellitus. Continue with Protonix 40 mg daily, antiemetics as needed. No plans for endoscopic evaluation. Discussed with patient to eat very small frequent meals. And follow-up with gastroenterology as previously recommended. Current Visit: No Status: Acute Code(s): R11.2 - NAUSEA WITH VOMITING, UNSPECIFIED SNOMED Code(s): 96122471 (2) History of alcohol abuse Current Visit: Yes Status: Acute Code(s): F10.11 - ALCOHOL ABUSE, IN REMISSION SNOMED Code(s): 708511191 (3) Diabetes Current Visit: No Status: Acute Code(s): E11.9 - TYPE 2 DIABETES MELLITUS WITHOUT COMPLICATIONS SNOMED Code(s): 48468040 Plan: 1. Continue symptomatic and supportive care 2. Patient may have clear liquid diet, advance as tolerated 3. Protonix 40 mg daily 4. Antiemetics as needed 5. Discussed with patient importance of strict glycemic control 6. Recommend small frequent meals secondary to possible gastroparesis 7. Recommend alcohol abstinence, patient states he has quit drinking however patient does appear very agitated and anxious as well as has shakes and tremors, unclear etiology 8. No plans on endoscopic evaluation 9. Rest of medical management per primary medical team Thank you for this consultation, we will continue to follow. Dr. Jerman Cole I agree with the dictator's note, documented as a scribe by Griselda Brown.
[2024-09-20 17:59] LABS: Glucose,Whole Blood 137 mg/dL (70-110)
--- NOTE | 2024-09-20 18:14 | HP ---
HISTORY AND PHYSICAL CHIEF COMPLAINT: Nausea and vomiting. HISTORY OF PRESENT ILLNESS: This is a 59-year-old gentleman with a past medical history of diabetes type 2, who was recently admitted with coffee-ground emesis and subsequently, he is referred to [facility], which showed bleeding gastric ulcers and currently the patient is complaining of repeated nausea and vomiting with bilious vomiting and hemoglobin was found to be stable on 14.4. The patient was admitted for evaluation and treatment. There is no history of any fever, rigors, or chills at this time. The patient's also positive. The patient has an insulin pump. PAST MEDICAL HISTORY: Diabetes mellitus type 2, hypertension, history of GI bleed history of seizure disorder. Rest of the history and chart is also reviewed. HOME MEDICATIONS: Reviewed include Zofran. Dose and rest of medications reviewed. ALLERGIES: Depakote. FAMILY HISTORY: History of CHF in the family. SOCIAL HISTORY: No history of smoking or alcohol months. REVIEW OF SYSTEMS: Fourteen-point review of systems is negative, except as mentioned earlier. PHYSICAL EXAMINATION: VITAL SIGNS: Pulse is 94, blood pressure 126/74, respirations 16. HEENT: Conjunctivae normal. NECK: No jugular venous distention. CARDIOVASCULAR: S1, S2 muffled RESPIRATIONS: Breath sounds diminished at the bases. ABDOMEN: Soft and nontender. LEGS: No edema. NERVOUS SYSTEM: No focal deficit. SKIN: No ulcer, rash, or bleeding. JOINTS: No active deforming arthropathy. LABORATORY DATA: Labs are reviewed. ASSESSMENT: 1. Nausea, vomiting, possible acute gastritis. 2. Rule out early diabetic ketoacidosis. 3. Diabetes mellitus, type 2, on insulin pump. 4. History of recent gastrointestinal bleed and bleeding gastric ulcers. 6. Hypertension. 7. Hyperlipidemia. 8. History of seizure disorder. 9. History of EtOH, none in 16 months. 10.History of tremors. RECOMMENDATIONS AND DISCUSSION: This is a 59-year-old gentleman, who presented with multiple complex medical issues. We will monitor the patient closely. Continue the current management and treatment otherwise. Monitor blood sugars closely. Repeat labs. IV fluids. Symptomatic treatment. Close followup with GI. Prognosis is guarded because of multiple complex medical conditions. See orders for details. MMODL / IJN: [id number] / [facility]
[2024-09-20] MEDS: ACETAMINOPHEN TAB 325 MG TAB PO PRN (19:58)
[2024-09-20 20:03] LABS: Glucose,Whole Blood 265 mg/dL (70-110)
[2024-09-20] MEDS: ATORVASTATIN 10 MG TAB PO SCH (20:21)
[2024-09-20] MEDS: lamoTRIgine 100 MG TAB PO SCH (20:21)
[2024-09-20] MEDS: lamoTRIgine 25 MG TAB PO SCH (20:21)
[2024-09-20] MEDS: PANTOPRAZOLE 40 MG/10 ML VIAL IV SCH (20:22)
[2024-09-20] MEDS: INSULIN LISPRO (HumaLOG) 100 UNIT/ML 10 mL VL SQ SCH (21:05)
[2024-09-20] MEDS: INSULIN GLARGINE (LANTUS) 100 UNIT/ML SYR SQ SCH (21:08)
[2024-09-20] MEDS: KETOTIFEN 0.025% OPHTH DROPS 5 ML BTL BOTH EYES SCH (21:08)
[2024-09-21] MEDS ORDERED: LORazepam 1 MG/0.5 ML VIAL IV PRN ×3 (04:32)
[2024-09-21 06:52] LABS: Glucose,Whole Blood 195 mg/dL (70-110)
[2024-09-21 07:08] VITALS: BP 133/76; PULSE 67; RESP 16; TEMP 97.9
[2024-09-21 08:20] LABS: ALT 19 U/L (10-49); AST 32 U/L (14-35); Albumin 3.6 g/dL (3.8-4.9); Albumin/Globulin Ratio 1.89 Ratio (1.60-3.17); Alkaline Phosphatase 93 U/L (41-126); Blood Urea Nitrogen 9.6 mg/dL (9.0-27.0); Calcium 7.9 mg/dL (8.7-10.3); Carbon Dioxide 23.5 mmol/L (21.6-31.8); Chloride 103 mmol/L (96-109); Globulin 1.9 g/dL (1.6-3.3); Glucose 176 mg/dL (70-110); Potassium 3.7 mmol/L (3.5-5.5); Sodium 138 mmol/L (135-145); Total Bilirubin 1.6 mg/dL (0.3-1.2); Total Protein 5.5 g/dL (6.2-8.2)
[2024-09-21 08:44] LABS: Basophils # (A) 0.03 X 10*3/uL (0.00-0.10); Basophils % (A) 0.4 %; Eosinophils # (A) 0.02 X 10*3/uL (0.04-0.35); Eosinophils % (A) 0.3 %; HCT 36.5 % (39.6-50.0); HGB 11.8 g/dL (13.0-17.0); Lymphocytes # (A) 1.62 X 10*3/uL (0.90-5.00); Lymphocytes % (A) 21.3 %; MCH 31.1 pg (27.0-32.0); MCHC 32.3 g/dL (32.0-37.0); MCV 96.1 FL (80.0-97.0); Mean Platelet Volume 10.5 FL (9.5-12.2); Monocytes # (A) 1.11 X 10*3/uL (0.20-1.00); Monocytes % (A) 14.6 %; NRBC Per 100 WBC 0 X 10*3/uL (0.00-0.01); Neutrophils # (A) 4.79 X 10*3/uL (1.80-7.70); Neutrophils % (A) 63.1 %; Platelet Count 245 X 10*3/uL (140-440); RDW 13.9 % (11.5-14.5); WBC 7.59 X 10*3/uL (4.50-10.00)
[2024-09-21] MEDS: NALTREXONE HCL 50 MG TAB PO SCH (08:49)
[2024-09-21] MEDS: FOLIC ACID 1 MG TAB PO SCH (08:49)
[2024-09-21] MEDS: LISINOPRIL-HCTZ 10-12.5 MG 1 EACH TAB PO SCH (08:49)
[2024-09-21] MEDS ORDERED: PANTOPRAZOLE 40 MG/10 ML VIAL IV SCH (09:00)
--- NOTE | 2024-09-21 09:02 | P.PN ---
Subjective Progress Note Date: 09/21/24 Principal diagnosis: Nausea and vomiting This is a pleasant 59-year-old male with multiple hospitalizations for nausea and vomiting. He has a history of diabetes mellitus, seizure disorder alcohol abuse, chronic nausea and vomiting and abdominal pain who presents to the hospital with complaints of abdominal pain nausea and vomiting. Gastroenterology was consulted for nausea and vomiting and abdominal pain. Patient has had multiple upper endoscopies recently including being seen here with gastroenterology for nausea and vomiting and underwent upper endoscopy on 07/17/2024 with findings of mild antral gastritis and LA grade B reflux esophagitis. Recommended to continue 40 mg daily and antiemetics as needed and follow-up in 2 to 3 weeks. Patient states he never followed up with gastroenterology. States he has been taking his Protonix daily as prescribed. States he is not drinking and has not had any alcohol for 30 months. He was seen again in the emergency department for nausea and vomiting on 09-02 again reports that this is persistent and ongoing for months bilious vomiting without any coffee-ground emesis or hematemesis. He was admitted overnight and sent home. Again came into the emergency department on 09/08/2024 again with reports of nausea and vomiting at this time he had reported dark emesis and he was transferred to [facility]. Patient states he had upper endoscopy. No results at this time. Patient states that he does not eat much. Secondary to timing of his medications. He denies any new medications. Patient has severe tremors at this time. He seems very anxious and restless. Asking for something cold to drink and popsicles. He denies any hematemesis or coffee- ground emesis at this time. Mostly vomiting bile. 09/21/2024 Patient seen and examined today as a follow-up. Patient appears much more calm, less anxious and less scattered, tremors seem to have resolved. He states his nausea and vomiting is improved. No abdominal pain. States he would like to eat a little bit more. States though he probably will not eat much because he does not like the food here. He also states that he would like to be discharged because he has counseling appointments today. He was started on CIWA protocol and Ativan yesterday Objective - Vital Signs Vital signs: Vital Signs Temp 97.9 F 09/21/24 06:49 Pulse 67 09/21/24 06:49 Resp 16 09/21/24 06:49 BP 133/76 09/21/24 06:49 Pulse Ox 96 09/21/24 06:49 FiO2 Intake & Output 09/20/24 09/21/24 09/21/24 18:59 06:59 18:59 Intake Total 680 300 Balance 680 300 Weight 99.79 kg 99.79 kg Intake: Oral 680 300 Other: Voiding Method Toilet # Voids 1 - Exam General appearance: The patient is alert, oriented, appears in no acute distress. HET: Head is normocephalic and atraumatic. Conjunctiva pink. Sclera anicteric. Neck: Supple without lymphadenopathy. Abdomen: Soft, nontender, nondistended. Extremities: Normal skin color and turgor. No pedal edema Skin: No rashes, no jaundice Neurological: No focal deficits. Alert and oriented. - Labs CBC & Chem 7: 09/21/24 05:19 09/21/24 05:19 Labs: Abnormal Lab Results - Last 24 Hours (Table) 09/20/24 09/20/24 09/20/24 Range/Units 07:26 09:51 10:35 RBC (4.40-5.60) X 10*6/uL Hgb (13.0-17.0) g/dL Hct (39.6-50.0) % Monocytes # (0.20-1.00) X 10*3/uL Eosinophils # (0.04-0.35) X 10*3/uL APTT 21.7 L (22.0-30.0) sec BUN/Creatinine Ratio (12.00-20.00) Ratio Glucose (70-110) mg/dL POC Glucose (mg/dL) (70-110) mg/dL Plasma Lactic Acid Gerald 3.1 H* (0.7-2.0) mmol/L Calcium (8.7-10.3) mg/dL Total Bilirubin (0.3-1.2) mg/dL Total Protein (6.2-8.2) g/dL Albumin (3.8-4.9) g/dL Ur Specific [place] >1.050 H (1.001-1.035) Urine Protein Trace H (Negative) Urine Glucose (UA) 1+ H (Negative) Urine Ketones 2+ H (Negative) Urine Blood Trace H (Negative) Urine Bacteria Rare H (None) /hpf Urine Mucus Rare H (None) /hpf 09/20/24 09/20/24 09/21/24 Range/Units 17:56 20:02 05:19 RBC 3.80 L (4.40-5.60) X 10*6/uL Hgb 11.8 L (13.0-17.0) g/dL Hct 36.5 L (39.6-50.0) % Monocytes # 1.11 H (0.20-1.00) X 10*3/uL Eosinophils # 0.02 L (0.04-0.35) X 10*3/uL APTT (22.0-30.0) sec BUN/Creatinine Ratio (12.00-20.00) Ratio Glucose (70-110) mg/dL POC Glucose (mg/dL) 137 H 265 H (70-110) mg/dL Plasma Lactic Acid Gerald (0.7-2.0) mmol/L Calcium (8.7-10.3) mg/dL Total Bilirubin (0.3-1.2) mg/dL Total Protein (6.2-8.2) g/dL Albumin (3.8-4.9) g/dL Ur Specific [place] (1.001-1.035) Urine Protein (Negative) Urine Glucose (UA) (Negative) Urine Ketones (Negative) Urine Blood (Negative) Urine Bacteria (None) /hpf Urine Mucus (None) /hpf 09/21/24 09/21/24 Range/Units 05:19 06:50 RBC (4.40-5.60) X 10*6/uL Hgb (13.0-17.0) g/dL Hct (39.6-50.0) % Monocytes # (0.20-1.00) X 10*3/uL Eosinophils # (0.04-0.35) X 10*3/uL APTT (22.0-30.0) sec BUN/Creatinine Ratio 9.60 L (12.00-20.00) Ratio Glucose 176 H (70-110) mg/dL POC Glucose (mg/dL) 195 H (70-110) mg/dL Plasma Lactic Acid Gerald (0.7-2.0) mmol/L Calcium 7.9 L (8.7-10.3) mg/dL Total Bilirubin 1.6 H (0.3-1.2) mg/dL Total Protein 5.5 L (6.2-8.2) g/dL Albumin 3.6 L (3.8-4.9) g/dL Ur Specific [place] (1.001-1.035) Urine Protein (Negative) Urine Glucose (UA) (Negative) Urine Ketones (Negative) Urine Blood (Negative) Urine Bacteria (None) /hpf Urine Mucus (None) /hpf Assessment and Plan (1) Nausea & vomiting Narrative/Plan: 89-year-old with chronic intractable nausea and vomiting for several months has had multiple endoscopic evaluations in the last couple months. Last 1 most recently was transferred from this hospital on 09/08/2024 for coffee-ground emesis to [facility]. Apparently patient had undergone upper endoscopy results are not available at this time. Records were requested. Prior to that he was evaluated here by gastroenterology and we did upper endoscopy finding gastritis and esophagitis with recommendation for Protonix 40 mg daily. Patient is a 30-year diabetic who presented with positive acetone likely secondary to diabetic ketoacidosis. Nausea and vomiting may be secondary to gastroparesis from diabetes mellitus. Continue with Protonix 40 mg daily, antiemetics as needed. No plans for endoscopic evaluation. Discussed with patient to eat very small frequent meals. And follow-up with gastroenterology a s previously recommended. Nausea and vomiting resolved. Likely chronic nausea and vomiting secondary to anxiety, possible IBS. Patient was started on Ativan and states his symptoms have resolved. Current Visit: No Status: Acute Code(s): R11.2 - NAUSEA WITH VOMITING, UNSPECIFIED SNOMED Code(s): 09355889 (2) History of alcohol abuse Current Visit: Yes Status: Acute Code(s): F10.11 - ALCOHOL ABUSE, IN REMISSION SNOMED Code(s): 156160121 (3) Diabetes Current Visit: No Status: Acute Code(s): E11.9 - TYPE 2 DIABETES MELLITUS WITHOUT COMPLICATIONS SNOMED Code(s): 92329863 Plan: 1. Continue symptomatic and supportive care 2. Advance to consistent carbohydrate diet 3. Continue Protonix 40 mg daily 4. Antiemetics as needed 5. Discussed with patient importance of strict glycemic control 6. Recommend small frequent meals secondary to possible gastroparesis 7. Recommend alcohol abstinence, patient states he has quit drinking however patient does appear very agitated and anxious as well as has shakes and tremors, unclear etiology 8. No plans on endoscopic evaluation 9. Rest of medical management per primary medical team Thank you for this consultation, patient is cleared from gastroenterology for d ischarge. He can follow-up as an outpatient in [address] Jerman Cole I agree with the dictator's note, documented as a scribe by Griselda Brown.
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
--- NOTE | 2024-09-21 21:43 | P.DS ---
Providers Date of admission: 09/20/24 09:53 Attending physician: Toro Easley Consults: 09/20/24 09:53 Consult Physician Routine Consulting Provider: Yoly Cole Consult Reason/Comments: history of ulcers/gastritis, intractable abd pain/n/v Do you want consulting provider notified?: Yes 09/21/24 04:32 Consult Physician Urgent Consulting Provider: Psychiatry - [facility] Psychiatry Consult Reason/Comments: anxiety, irratic behavior, prev etoh use Do you want consulting provider notified?: Already Contacted Primary care physician: Onelia Oscar DO Hospital Course: Diagnoses: Abdominal pain secondary to esophagitis and esophageal ulcer. Status post EGD on 09/08 showing clean-based distal esophageal ulcer with erosive esophagitis Gastroparesis History of alcohol use disorder Hypertension Hyperlipidemia Diabetes mellitus Hospital course: This is a pleasant 59 years old male who presents initially because of abdominal pain he was evaluated by GI service Patient s/p EGD at [facility] on 09/08 and result obtained showing a clean- based distal esophageal ulcer and erosive esophagitis Also he has history of alcohol use disorder Also is diabetic with possible gastroparesis and he had some nausea vomiting on admission Today he was evaluated by GI service and cleared him for discharge to me. Once he tolerates his diet when I met the patient he was fully awake oriented sitting in chair willing to be discharged home today once he tolerates meal. He has his meal in front of him. He ate it with no difficulty after that I got a page from the bedside nurse that patient's wants to be discharged home today sooner than later. Patient also had no chest pain or dyspnea no urinary complaint no headache dizziness weakness numbness He has mild tremor in both upper extremity but patient denies to be due to alcohol stating he quit drinking alcohol 2.5 years ago. Patient denies any other symptoms. Patient again eager to go home today Patient was cleared for discharge by GI service Problems and management plan were discussed with the patient and he verbalized understanding and acceptance Patient was found stable and can be discharged home in guarded prognosis however he needs follow-up as an outpatient. Patient was instructed to follow up with PCP within one week and patient agrees Patient states he has all his home medication Patient was instructed to follow-up with GI Dr. Santos in 1 week and he agrees Physical exam Gen: patient is a AAOx3, no distress CVS: S1-S2, RRR, no murmur Lungs: B/L CTA, no wheezing Abdomen: soft, no distention, no tenderness, positive bowel sounds Extremity: no leg edema or induration Time spent more than 35 minutes Patient Condition at Discharge: Stable Plan - Discharge Summary Discharge Rx Participant: No New Discharge Prescriptions: Continue Naltrexone HCl [Revia] 50 mg PO DAILY Lisinopril-Hctz 10-12.5 mg [Zestoretic 10-12.5] 1 tab PO DAILY Folic Acid 1 mg PO DAILY INSULIN LISPRO (For Pump) [humaLOG (For Pump)] 0.01 units SQ-PUMP CONTINUOUS Ammonium Lactate Cream [Lac-Hydrin 12% Cream] 1 applic TOPICAL DAILY bisacodyL 10 mg RECTAL DAILY PRN PRN Reason: Constipation Glucagon [Gvoke Pfs 1-Pack Syringe] 1 mg SQ ONCE PRN PRN Reason: LOW BLOOD SUGAR Aspirin EC [Ecotrin Low Dose] 81 mg PO DAILY Albuterol Inhaler [Ventolin Hfa Inhaler] 2 puff INHALATION RT-Q6H PRN PRN Reason: Shortness Of Breath Atorvastatin Calcium [Lipitor] 10 mg PO HS Cholecalciferol [Vitamin D3 (125 Mcg = 5000 Iu)] 125 mcg PO DAILY lamoTRIgine [LaMICtal] 100 mg PO BID Azelastine HCl [Optivar 0.05% Ophth Soln] 1 drop BOTH EYES BID lamoTRIgine [LaMICtal] 25 mg PO BID Pantoprazole [Protonix] 40 mg PO BID ondansetron HCL [Zofran] 8 mg PO Q12HR PRN PRN Reason: Nausea Sucralfate [Carafate] 1 gm PO ACHS Discharge Medication List Atorvastatin Calcium [Lipitor] 10 mg PO HS 08/10/21 [History] Naltrexone HCl [Revia] 50 mg PO DAILY 08/10/21 [History] Folic Acid 1 mg PO DAILY 04/08/23 [History] Lisinopril-Hctz 10-12.5 mg [Zestoretic 10-12.5] 1 tab PO DAILY 04/08/23 [History] Cholecalciferol [Vitamin D3 (125 Mcg = 5000 Iu)] 125 mcg PO DAILY 09/27/23 [History] lamoTRIgine [LaMICtal] 100 mg PO BID 09/27/23 [History] Azelastine HCl [Optivar 0.05% Ophth Soln] 1 drop BOTH EYES BID 07/16/24 [History] INSULIN LISPRO (For Pump) [humaLOG (For Pump)] 0.01 units SQ-PUMP CONTINUOUS 07/16/24 [History] lamoTRIgine [LaMICtal] 25 mg PO BID 07/16/24 [History] Pantoprazole [Protonix] 40 mg PO BID 08/10/24 [History] Albuterol Inhaler [Ventolin Hfa Inhaler] 2 puff INHALATION RT-Q6H PRN 09/20/24 [History] Ammonium Lactate Cream [Lac-Hydrin 12% Cream] 1 applic TOPICAL DAILY 09/20/24 [History] Aspirin EC [Ecotrin Low Dose] 81 mg PO DAILY 09/20/24 [History] Glucagon [Gvoke Pfs 1-Pack Syringe] 1 mg SQ ONCE PRN 09/20/24 [History] Sucralfate [Carafate] 1 gm PO ACHS 09/20/24 [History] bisacodyL 10 mg RECTAL DAILY PRN 09/20/24 [History] ondansetron HCL [Zofran] 8 mg PO Q12HR PRN 09/20/24 [History] Follow up Appointment(s)/Referral(s): Maribeth Quezada NPC [REFERRING] - 2 Weeks (Gastroenterology follow-up for chronic nausea and vomiting) Yoly Cole MD [STAFF PHYSICIAN] - 2 Weeks Onelia Oscar DO [Primary Care Provider] - 1-2 days Patient Instructions/Handouts: Dehydration (DC), Heart Healthy Diet (DC), Acute Nausea and Vomiting (DC) Activity/Diet/Wound Care/Special Instructions: Heart healthy diet Activity is restricted till you see your doctor Follow-up with your [facility] in 1 week Discharge Disposition: HOME SELF-CARE
== END 2024-09-21 12:11 | disposition home or self-care (01) ==
LOC: EC 07:12 → 5NMEDONC 09:53
PROVIDERS: ADMIT Hospitalist; ATTEND Hospitalist
DX: K22.10 Ulcer of esophagus without bleeding (principal); E11.43 Type 2 diabetes mellitus with diabetic autonomic (poly)neuropathy; K31.84 Gastroparesis; K92.1 Melena; E86.0 Dehydration; M77.9 Enthesopathy, unspecified; R25.1 Tremor, unspecified; I10 Essential (primary) hypertension; E78.00 Pure hypercholesterolemia, unspecified; K21.9 Gastro-esophageal reflux disease without esophagitis; F33.1 Major depressive disorder, recurrent, moderate; F41.9 Anxiety disorder, unspecified; F10.21 Alcohol dependence, in remission; Z56.0 Unemployment, unspecified; Z90.49 Acquired absence of other specified parts of digestive tract; Z96.41 Presence of insulin pump (external) (internal); Z79.4 Long term (current) use of insulin; Z79.82 Long term (current) use of aspirin; Z79.899 Other long term (current) drug therapy
CPT/HCPCS: 96376 ×2; 96374; 96375; 99285; 36415; 93005; 80053 ×2; 80175; 82150; 82803; 82009; 83605; 83690; 85025 ×2; 85610; 85730; 81001; 87636; 71045; 74177; G0378 ×2; G0480; J1200; J2765; J2405; J2270; Q9967; J2470 ×2; 80320

== ENCOUNTER → 2024-10-29 | Outpatient (CLI) | payer OTHER ==
--- NOTE | 2024-10-29 21:08 | BD ---
EXAMINATION TYPE: Axial Bone Density DATE OF EXAM: 10/29/2024 CLINICAL HISTORY: 59 years old Male. ICD-10 CODE: Z13.820 SCRN FOR OSTEOPOROSIS, R29.6, M81.6 , Shaquille tional History: Height: 75 Weight: 211 FRAX RISK QUESTIONS: Alcohol (3 or more units per day): no Family History (Parent hip fracture): yes History of Fracture in Adulthood: no Secondary Osteoporosis: no RISK FACTORS HISTORY OF: History of rt Wrist Fracture: yes When: 1981 Surgery to Spine/Hip(right/left)/Wrist (right/left): no MEDICATIONS: Thyroid Medications: no Osteoporosis Medications: no EXAM MEASUREMENTS: Bone mineral densitometry was performed using the [email or web address] System. Bone mineral density as measured about the Lumbar spine is: ----- L1-L4(G/cm2): 1.255 T Score Values are as follows: ----- L1: -0.3 ----- L2: 0.2 ----- L3: 0.8 ----- L4: 1.5 ----- L1-L4: 0.6 Z Score Values are as follows: ----- L1: -0.8 ----- L2: -0.4 ----- L3: 0.2 ----- L4: 0.9 ----- L1-L4: 0.0 Bone mineral density baseline Bone mineral density about the R hip (g/cm2): 1.041 Bone mineral density about the L hip (g/cm2): 0.964 T Score values are as follows: -----R Neck: -1.9 -----L Neck: -2.0 -----R Total: 0.3 -----L Total: -0.3 Z Score values are as follows: -----R Neck: -1.8 -----L Neck: -1.8 -----R Total: -0.3 -----L Total: -0.9 Bone mineral density baseline FRAX%s: The graph provided illustrates a 8.0% chance for a major osteoporotic fx and a 1.6% chance fo r the hips probability for fx in 10 years time. IMPRESSION: Osteopenia (T Score between -2.5 and -1). There is slightly increased risk of fracture and the patient may be considered for treatment. Re-Screen 2-5 years. NOTE: T-SCORE=SD OF THE YOUNG ADULT MEAN. [facility], , 10/29/2024 9:06 PM
== END | disposition home or self-care (01) ==
LOC: RADBDWWP 14:38
PROVIDERS: ATTEND Student in an Organized Health Care Education/Training Program
DX: Z13.820 Encounter for screening for osteoporosis (principal); M81.6 Localized osteoporosis [Lequesne]; M85.89 Other specified disorders of bone density and structure, multiple sites; R29.6 Repeated falls
CPT/HCPCS: 77080